=== PATIENT | female | born 1945 | race Caucasian/White ===

== ENCOUNTER 2021-04-03 10:26 | Outpatient (REF) | payer MEDICARE, SELFPAY ==
--- NOTE | ~2021-04-03 | MM_ITS ---
EXAMINATION: MM SCREENING DIGITAL BREAST TOMOSYNTHESIS, BILATERAL CLINICAL INFORMATION: Screening. Asymptomatic. The lifetime risk of breast cancer based on the Tyrer-Cuzick Model is 3%. COMPARISON: Mammography: 06/05/2019, 05/29/2018, 05/07/2017 TECHNIQUE: Digital breast tomosynthesis is performed in both the craniocaudal and mediolateral oblique views along with computer-aided detection (CAD). Synthesized 2D images are generated from the tomosynthesis. FINDINGS: The breasts are almost entirely fatty (ACR BI-RADS breast composition Category a). Background stromal and fibroglandular densities are similar to prior studies. There is no architectural abnormality. No abnormal calcifications. Skin contours are smooth. No significant changes. MM/MM tomosynthesis screening BI IMPRESSION: No mammographic evidence of malignancy. ASSESSMENT: BI-RADS 1: Negative RECOMMENDATION: Routine annual mammography screening. This patient's information was entered into a reminder system with a target due date for their next mammogram.
== END 2021-04-03 10:27 | disposition home or self-care (01) ==
LOC: HO.MAMMO 10:26
PROVIDERS: PCP Internal Medicine; Visit Provider Internal Medicine
DX: Z12.31 Encounter for screening mammogram for malignant neoplasm of breast (principal)
CPT/HCPCS: 77063; 77067

== ENCOUNTER 2021-06-02 09:12 | Outpatient (REF) | payer MEDICARE, SELFPAY ==
[2021-06-02 11:26] LABS: MANUAL DIFF FLAG NO
[2021-06-02 11:38] LABS: Basophils Absolute Auto 0.1 X10*3/uL (0.0-0.2); Basophils Percent Auto 0.7 % (0-2); Eosinophils Absolute Auto 0.2 X10*3/uL (0.0-0.4); Eosinophils Percent Auto 2.5 % (0-4); Hematocrit 40.1 % (37-47); Hemoglobin 13.3 g/dl (12.0-16.0); Imm Gran Abs Auto 0.02 X10*3/uL (0.00-0.03); Imm Gran Pct Auto 0.2 % (0.0-0.4); Lymphocytes Absolute Auto 2.8 X10*3/uL (1.2-4.9); Lymphocytes Percent Auto 30.9 % (20-40); Mean Corpuscular HGB Conc 33.2 g/dl (31.0-35.0); Mean Corpuscular Hemoglobin 28.9 pg (27.0-33.0); Mean Corpuscular Volume 87.2 fL (80-98); Mean Platelet Volume 9.8 fL (9.4-12.3); Monocytes Absolute Auto 0.5 X10*3/uL (0.1-1.2); Monocytes Percent Auto 5.3 % (2-11); Neutrophils Absolute Auto 5.4 X10*3/uL (2.0-8.3); Neutrophils Percent Auto 60.4 % (45-73); Platelet Count 343 X10*3/uL (160-400); Red Cell Distribution Width 11.9 % (11.0-16.0); White Blood Count 8.9 X10*3/uL (4.8-10.8)
[2021-06-02 11:47] LABS: Estimated Average Glucose 275 mg/dL; Hemoglobin A1c % 11.2 %
[2021-06-02 12:00] LABS: Creatinine Urine 153.39 mg/dL; Microalbum/Creatinine Ratio Ur 13.6 ug/mg cr
[2021-06-02 12:06] LABS: TSH reflex Free T4 0.84 uIU/mL (0.32-4.0)
[2021-06-02 12:07] LABS: Alanine Aminotransferase 15 U/L (0-31); Albumin Level 4.1 g/dL (3.5-5.0); Alkaline Phosphatase 90 U/L (39-117); Anion Gap 15 (12-20); Aspartate Amino Transferase 15 U/L (5-31); Bilirubin Total 0.5 mg/dL (0.0-1.0); Blood Urea Nitrogen 18 mg/dL (9-16); Calcium 9.3 mg/dL (8.4-10.2); Carbon Dioxide 23 mmol/L (22-29); Chloride 104 mmol/L (96-108); Cholesterol 199 mg/dL; Estimated Glomerular Filt Rate 56; Glucose Fasting 262 mg/dL (60-99); HDL Cholesterol 49 mg/dL; LDL Cholesterol Calculated 83 mg/dl; Potassium 4.6 mmol/L (3.3-5.1); Sodium 137 mmol/L (135-145); Total Protein 7.4 g/dL (6.5-8.0); Triglycerides 335 mg/dL
== END 2021-06-02 09:13 | disposition home or self-care (01) ==
LOC: HO.HMGCLDS 09:12
PROVIDERS: PCP Internal Medicine; Visit Provider Internal Medicine
DX: E11.9 Type 2 diabetes mellitus without complications (principal)
CPT/HCPCS: 36415; 80053; 80061; 82043; 83036; 84443; 85025

== ENCOUNTER → 2021-07-13 13:24 | Outpatient (BNVA) | payer MEDICARE, SELFPAY | PROVIDERS: PCP Internal Medicine; Visit Provider Dietitian, Registered | DX: E11.9 Type 2 diabetes mellitus without complications (principal) | CPT/HCPCS: 97802 ==

== ENCOUNTER → 2021-08-24 08:56 | Outpatient (BNVA) | payer MEDICARE, SELFPAY | PROVIDERS: PCP Internal Medicine; Visit Provider Dietitian, Registered | DX: E11.9 Type 2 diabetes mellitus without complications (principal) | CPT/HCPCS: 97803 ==

== ENCOUNTER 2021-08-30 07:22 | Outpatient (REF) | payer MEDICARE, SELFPAY ==
[2021-08-30 11:23] LABS: Hematocrit 38.5 % (37-47); Hemoglobin 12.4 g/dl (12.0-16.0); Mean Corpuscular HGB Conc 32.2 g/dl (31.0-35.0); Mean Corpuscular Hemoglobin 28.6 pg (27.0-33.0); Mean Corpuscular Volume 88.7 fL (80-98); Mean Platelet Volume 9.9 fL (9.4-12.3); Platelet Count 357 X10*3/uL (160-400); Red Blood Count 4.34 X10*6/uL (4.20-5.50); Red Cell Distribution Width 12.2 % (11.0-16.0); White Blood Count 7.1 X10*3/uL (4.8-10.8)
[2021-08-30 12:02] LABS: Alanine Aminotransferase 16 U/L (0-31); Alkaline Phosphatase 70 U/L (39-117); Anion Gap 12 (12-20); Aspartate Amino Transferase 16 U/L (5-31); Bilirubin Total 0.5 mg/dL (0.0-1.0); Blood Urea Nitrogen 21 mg/dL (9-16); Calcium 9.4 mg/dL (8.4-10.2); Carbon Dioxide 27 mmol/L (22-29); Chloride 109 mmol/L (96-108); Cholesterol 137 mg/dL; Estimated Glomerular Filt Rate > 60; Glucose Fasting 158 mg/dL (60-99); HDL Cholesterol 50 mg/dL; LDL Cholesterol Calculated 69 mg/dl; Sodium 143 mmol/L (135-145); Total Protein 6.8 g/dL (6.5-8.0); Triglycerides 94 mg/dL
[2021-08-30 12:05] LABS: Creatinine Urine 59.85 mg/dL
[2021-08-30 12:20] LABS: Estimated Average Glucose 157 mg/dL; Hemoglobin A1c % 7.1 %
== END 2021-08-30 07:23 | disposition home or self-care (01) ==
LOC: HO.HMGCLDS 07:22
PROVIDERS: PCP Internal Medicine; Visit Provider Internal Medicine
DX: E11.9 Type 2 diabetes mellitus without complications (principal); E78.5 Hyperlipidemia, unspecified; I10 Essential (primary) hypertension
CPT/HCPCS: 36415; 80053; 80061; 82043; 83036; 85027

== ENCOUNTER 2021-10-23 | Outpatient (REF) | payer MEDICARE, SELFPAY ==
[2021-10-24 12:43] LABS: CDiff Gene PCR NEGATIVE (Negative)
== END 2021-10-23 00:01 | disposition home or self-care (01) ==
LOC: HO.LNP
PROVIDERS: Visit Provider Internal Medicine Gastroenterology
DX: K51.90 Ulcerative colitis, unspecified, without complications (principal)
CPT/HCPCS: 87493

== ENCOUNTER 2021-10-23 13:49 | Outpatient (REF) | payer MEDICARE, SELFPAY ==
[2021-10-23 15:14] LABS: MANUAL DIFF FLAG NO
[2021-10-23 15:42] LABS: Basophils Absolute Auto 0.1 X10*3/uL (0.0-0.2); Basophils Percent Auto 0.6 % (0-2); Eosinophils Absolute Auto 0.2 X10*3/uL (0.0-0.4); Eosinophils Percent Auto 2.2 % (0-4); Hematocrit 40.1 % (37.0-47.0); Hemoglobin 12.9 g/dl (12.0-16.0); Imm Gran Abs Auto 0.03 X10*3/uL (0.00-0.03); Imm Gran Pct Auto 0.3 % (0.0-0.4); Lymphocytes Percent Auto 32.1 % (20-40); Mean Corpuscular HGB Conc 32.2 g/dl (31.0-35.0); Mean Corpuscular Hemoglobin 28.9 pg (27.0-33.0); Mean Corpuscular Volume 89.7 fL (80.0-98.0); Mean Platelet Volume 9.4 fL (9.4-12.3); Monocytes Absolute Auto 0.6 X10*3/uL (0.1-1.2); Monocytes Percent Auto 6.9 % (2-11); Neutrophils Absolute Auto 5.4 x10*3/uL (2.0-8.3); Neutrophils Percent Auto 57.9 % (45-73); Platelet Count 339 X10*3/uL (160-400); Red Blood Count 4.47 X10*6/uL (4.20-5.50); Red Cell Distribution Width 11.9 % (11.0-16.0); White Blood Count 9.3 X10*3/uL (4.8-10.8)
[2021-10-23 16:04] LABS: Blood Urea Nitrogen 25 mg/dL (9-16); C Reactive Protein 0.28 mg/dL (< or = 0.50); Estimated Glomerular Filt Rate 57
== END 2021-10-23 13:50 | disposition home or self-care (01) ==
LOC: HO.LAB 13:49
PROVIDERS: PCP Internal Medicine; Referring Provider Internal Medicine; Visit Provider Internal Medicine Gastroenterology
DX: K51.90 Ulcerative colitis, unspecified, without complications (principal)
CPT/HCPCS: 36415; 82565; 84520; 85025; 86140; 99212

== ENCOUNTER 2021-12-05 08:40 | Outpatient (REF) | payer MEDICARE, SELFPAY ==
[2021-12-05 12:06] LABS: Estimated Average Glucose 148 mg/dL; Hemoglobin A1c % 6.8 %
[2021-12-05 12:09] LABS: Alanine Aminotransferase 14 U/L (0-31); Albumin Level 4.1 g/dL (3.5-5.0); Alkaline Phosphatase 68 U/L (39-117); Anion Gap 11 (12-20); Aspartate Amino Transferase 14 U/L (5-31); Bilirubin Total 0.5 mg/dL (0.0-1.0); Blood Urea Nitrogen 20 mg/dL (9-16); Calcium 9.7 mg/dL (8.4-10.2); Carbon Dioxide 30 mmol/L (22-29); Chloride 104 mmol/L (96-108); Cholesterol 162 mg/dL; Creatinine Urine 79.13 mg/dL; Estimated Glomerular Filt Rate 60; Glucose Fasting 145 mg/dL (60-99); HDL Cholesterol 55 mg/dL; LDL Cholesterol Calculated 86 mg/dl; Microalbum/Creatinine Ratio Ur 7.5 ug/mg cr; Potassium 4.6 mmol/L (3.3-5.1); Sodium 140 mmol/L (135-145); Total Protein 7.3 g/dL (6.5-8.0); Triglycerides 106 mg/dL
== END 2021-12-05 08:41 | disposition home or self-care (01) ==
LOC: HO.HMGCLDS 08:40
PROVIDERS: PCP Internal Medicine; Visit Provider Internal Medicine
DX: I10 Essential (primary) hypertension (principal); E11.9 Type 2 diabetes mellitus without complications; E78.5 Hyperlipidemia, unspecified
CPT/HCPCS: 36415; 80053; 80061; 82043; 83036

== ENCOUNTER 2022-02-23 07:52 | Day surgery (SDC) | payer MEDICARE, SELFPAY ==
--- NOTE | 2022-02-21 15:05 | P.CONAN_ITS ---
Documented by User: Krista Massey NP 02/21/22 15:11 HPI - Anesthesia Eval Consult details Narrative: 76yo F for Colonoscopy PMFSH Active Problems Active Problems: All Active Problems (Updated 02/19/22 @ 10:47 by Tracy Ontiveros, RN) Paronychia of finger (Acute) Ulcerative colitis (Acute) Foot pain, right (Acute) Mammogram normal (Acute) HTN (hypertension) (Acute) Hyperlipidemia (Acute) DM type 2 (diabetes mellitus, type 2) (Acute) Past Medical History Medical History (Updated 02/19/22 @ 10:47 by Tracy Ontiveros, RN) Basal cell carcinoma DM type 2 (diabetes mellitus, type 2) Foot pain, right History of kidney stones History of ulcerative colitis HTN (hypertension) Hyperlipidemia Mammogram normal Surgical History Surgical History (Updated 02/19/22 @ 10:42 by Tracy Ontiveros, RN) Hx of colonoscopy Hx of hysterectomy Social History Social History Housing: House Patient Tobacco Use Status: Never used Tobacco e-Cigarette/Vaping Use: Never Used Second Hand Smoke Exposure: Yes Use of substances other than those prescribed or required for medical reasons: No Are you DNR?: No Advance Directives: No Advance Directives Information Provided: Yes Recently lost weight without trying: No How much weight loss: 2-13 pounds Nutrition Risks: No Nutritional Risk service: No Current occupational status: retired Current occupational exposures/hazards: No Meds Allergies Allergy/AdvReac Type Severity Reaction Status Date / Time amoxicillin [AMOXICILLIN] Allergy Intermediate RASH Verified 02/19/22 10:42 Home Medications Medication Instructions Recorded Confirmed Last Taken Type blood-glucose meter ([employer] #1 ea 07/04/21 12/08/21 Unknown History Ultra2 Meter) Lactobacillus cap PO 08/24/21 12/08/21 Unknown History acidophilus-Bifidobac.animalis 2.5 billion cell capsule (Daily Probiotic) cholecalciferol (vitamin D3) 25 25 mcg PO DAILY 08/24/21 02/19/22 Unknown History mcg (1,000 unit) capsule gabapentin 300 mg capsule 300 mg PO BEDTIME 08/24/21 02/19/22 Unknown History blood sugar diagnostic ([employer] 08/30/21 12/08/21 Unknown History Ultra Test) metformin 500 mg tablet,extended 1,000 mg PO DAILY tab 09/06/21 02/19/22 Unknown History release 24 hr fmvpbbzs-gqltgug-lmiy-lutein tablet tab PO 10/23/21 12/08/21 Unknown History Exam Exam Date and Time: February 21, 2022 1505 Pertinent Lab Results Pertinent Lab Results: Laboratory Tests 10/23/21 12/05/21 15:13 08:45 WBC 9.3 Hgb 12.9 Hct 40.1 Plt Count 339 Sodium 140 Potassium 4.6 Chloride 104 Carbon Dioxide 30 H BUN 20 H Creatinine 0.92 Assessment and Plan Assessment Anesthesia Assessment: Chart Reviewed Documented by User: Sloane Hamilton MD 02/23/22 09:37 [facility] Past Medical History Medical History (Updated 02/19/22 @ 10:47 by Tracy Ontiveros, RN) Basal cell carcinoma DM type 2 (diabetes mellitus, type 2) Foot pain, right History of kidney stones History of ulcerative colitis HTN (hypertension) Hyperlipidemia Mammogram normal Family History Family history of problems with anesthesia: No Surgical History Surgical History (Updated 02/19/22 @ 10:42 by Tracy Ontiveros, RN) Hx of colonoscopy Hx of hysterectomy History of Problems with Anesthesia: No Social History Social History Housing: House Patient Tobacco Use Status: Never used Tobacco e-Cigarette/Vaping Use: Never Used Second Hand Smoke Exposure: Yes Use of substances other than those prescribed or required for medical reasons: No Are you DNR?: No Advance Directives: No Advance Directives Information Provided: Yes Recently lost weight without trying: No How much weight loss: 2-13 pounds Nutrition Risks: No Nutritional Risk service: No Current occupational status: retired Current occupational exposures/hazards: No Meds Allergies Allergy/AdvReac Type Severity Reaction Status Date / Time amoxicillin [AMOXICILLIN] Allergy Intermediate RASH Verified 02/19/22 10:42 Home Medications Medication Instructions Recorded Confirmed Last Taken Type blood-glucose meter (OneTouch #1 ea 07/04/21 12/08/21 Unknown History Ultra2 Meter) Lactobacillus cap PO 08/24/21 12/08/21 Unknown History acidophilus-Bifidobac.animalis 2.5 billion cell capsule (Daily Probiotic) cholecalciferol (vitamin D3) 25 25 mcg PO DAILY 08/24/21 02/19/22 Unknown History mcg (1,000 unit) capsule gabapentin 300 mg capsule 300 mg PO BEDTIME 08/24/21 02/19/22 Unknown History blood sugar diagnostic (OneTouch 08/30/21 12/08/21 Unknown History Ultra Test) metformin 500 mg tablet,extended 1,000 mg PO DAILY tab 09/06/21 02/19/22 Unknown History release 24 hr qxdzbzhg-pglinfp-tsqf-lutein tablet tab PO 10/23/21 12/08/21 Unknown History Exam Airway Mallampati Class: II TM Dist: >3cm Neck ROM: Full Heart: rrr Lungs: cta Assessment and Plan Assessment Anesthesia Assessment: Anesthesia Plan Discussed and Chart Reviewed Final Anesthetic Review Family History of Problems with Anesthesia: No History of Problems with Anesthesia: No NPO: Yes ASA Class: III Final Preanesthetic Review: No Changes in Pt Med Stat, Meds/Allgs Chart Reviewed and Consent Obtained/Reviewed Patient Risk: Intermediate Procedure Risk: Intermediate Anesthetic Plan Anesthetic Plan: MAC: Disposition: Standard PACU
[2022-02-23 08:51] VITALS: BMI 27.4
[2022-02-23 09:02] VITALS: BP 137/53; PULSE 49; RESP 16; TEMP 37.1; O2SAT 97
[2022-02-23 09:09] LABS: Glucose, Whole Blood 140 mg/dL (60-115)
[2022-02-23] MEDS: Lactated Ringers 1,000 ML 100 ML IVCONT (09:10)
--- NOTE | 2022-02-23 09:38 | MHC.SHP ---
Pre-Procedural Eval Section A Date of Service: 02/23/22 The patient is an INPATIENT: No The History & Physical has been completed within 30 days and I have reviewed it.: No Section B Chief Complaint: Ulcerative colitis Details of Present Illness: Colon cancer screening, ulcerative colitis Relevant Family History (Specify if Yes): Yes Relevant Social History: None Present Medications: see Short Stay Collaborative assessment Medical History: Significant History (Basal cell carcinoma DM type 2 (diabetes mellitus, type 2) Foot pain, right HTN (hypertension) Hyperlipidemia Mammogram normal) History of Previous Operations: Relevant previous surgery/procedure and date(s) (History of colonoscopy, status post hysterectomy) Allergies: Allergies Allergy/AdvReac Type Severity Reaction Status Date / Time amoxicillin [AMOXICILLIN] Allergy Intermediate RASH Verified 02/19/22 10:42 Review of Systems Sugical H&P ROS: Negative: Constitution, Cardiovascular, Respiratory and Gastrointestinal Exam Surgical H&P Exam: Normal: Heart, Normal: Lungs, Normal: Extremities and Normal: Abdomen Plan Diagnosis/Plan: Unchanged I have reviewed the history and physical and performed a pertinent physical examination on my patient. No changes have occurred unless specified.
--- NOTE | 2022-02-23 09:39 | P.OP_ITS ---
Operative Note Operative Note Date of Service: 02/23/22 Narrative: Pre-op diagnosis: Follow-up of IBD Post-op diagnosis:?other (Colon polyps, diverticulosis, patchy colitis, hemorrhoids) Procedure: COLONOSCOPY TILL CECUM WITH BIOPSIES Consent: Indications for the procedure and potential complications of bleeding, perforation, reaction to medications and missed diagnosis were discussed with the patient and informed consent was obtained. Instrument: Olympus PCF H 190 L variable stiffness pediatric colonoscope Monitoring: Vital signs and clinical assessment, intermittent blood pressure monitoring, continuous EKG monitoring, Pulse oximetry and Carbon Dioxide monitoring were done throughout the procedure. Colon withdrawl time was 25 minutes. Procedure: The patient was placed in the left lateral decubitis position and pre-procedure medications were administered. After a digital rectal examination of the ano-rectum, the video colonoscope was inserted into the rectum and advanced through the colon to the cecum. The colonoscope was slowly withdrawn in a retrograde panoramic fashion and the colon mucosa was carefully examined including a retroflexed view of the rectum. Findings and interventions are described below. Procedure Difficulty: Without difficulty Findings: Terminal Ileum: Distal 5 cm was examined and appeared normal Cecum:? Normal - random biopsies were obtained Ascending Colon:? Normal - random biopsies were obtained Transverse Colon:? Normal - random biopsies were obtained Descending Colon:? Inactive colitis with multiple 5 mm to 1 cms pseudopolyps - biopsied. Sigmoid Colon:? Inactive colitis with multiple 5 mm to 1 cms pseudopolyps. Patchy moderately active colitis from 35 to 35 cms - biopsies obtained. Moderate diverticulosis Rectum:? Moderate proctitis with edema, erythema and scattered ulcers in the distal rectum from 0 to 4 cms. Ano-rectum:? Small internal hemorrhoids Colon preparation:? Good after some irrigation Impression and Post Procedure Diagnosis: Colonoscopy Findings: Two small polyps removed Inactive colitis with multiple 5 mm to 1 cms pseudopolyps. Patchy moderately active colitis from 35 to 35 cms - biopsies obtained. Surveillance biopsies obtained every 10 cm from the left colon. Moderate diverticulosis seen in the sigmoid colon Small hemorrhoids on retroflexed exam. Plan: Await pathology results. Resume mesalamine or start azathioprine on FU visit if biopsies confirm IBD. Patient has an appointment on 05/10/22 in the [facility] with Hannah Herrera M.D.. Repeat Colonoscopy interval based on path results - in 2-3 years if polyps are adenomatous and for IBD surveillance. Above findings were reviewed with the patient and colon polyps and diverticulosis handouts were given in the discharge area Surgeon: Hannah Herrera MD Anesthesia:?MAC (Dr Rodriguez) Was an Claims Correspondence Clerk used for this Procedure?:?Yes Claims Correspondence Clerk:?Heide Anderson Estimated blood loss (mL):?0 Pathology:?other (A. cecal bxs, R/O dysplasia? B. ascending colon bxs, R/O dysplasia? C. transverse colon bxs, R/O dysplasia? D. descending colon polyps (2)? E. colon bxs at 60 cm, R/O dysplasia? F.) Condition:?stable Disposition:?PACU
[2022-02-23 10:32] VITALS: BP 81/40; PULSE 55; RESP 16; TEMP 36.2; O2SAT 94
[2022-02-23 10:35] VITALS: BP 86/43; PULSE 55; RESP 16
[2022-02-23 10:44] VITALS: BP 104/48; PULSE 54; RESP 16; O2SAT 95
[2022-02-23 11:01] VITALS: BP 114/56; PULSE 50; RESP 16; TEMP 36.2; O2SAT 98
== END 2022-02-23 11:55 | disposition home or self-care (01) ==
PROVIDERS: PCP Internal Medicine; Visit Provider Internal Medicine Gastroenterology
PROC: 0DJD8ZZ Inspection of Lower Intestinal Tract, Via Natural or Artificial Opening Endoscopic (ICD-10-PCS; CPT 45378; principal; 2022-02-23 09:20)
DX: K51.20 Ulcerative (chronic) proctitis without complications (principal); K63.5 Polyp of colon; K57.30 Diverticulosis of large intestine without perforation or abscess without bleeding; K64.8 Other hemorrhoids; E11.9 Type 2 diabetes mellitus without complications; I10 Essential (primary) hypertension; E78.5 Hyperlipidemia, unspecified; Z79.84 Long term (current) use of oral hypoglycemic drugs; Z79.899 Other long term (current) drug therapy; Z88.0 Allergy status to penicillin
CPT/HCPCS: 45380; 82947; 88305

== ENCOUNTER 2022-02-28 08:53 | Outpatient (REF) | payer MEDICARE, SELFPAY ==
[2022-02-28 10:49] LABS: Alanine Aminotransferase 14 U/L (0-31); Albumin Level 4.1 g/dL (3.5-5.0); Alkaline Phosphatase 62 U/L (39-117); Anion Gap 11 (12-20); Aspartate Amino Transferase 15 U/L (5-31); Bilirubin Total 0.7 mg/dL (0.0-1.0); Blood Urea Nitrogen 20 mg/dL (9-16); Calcium 9.6 mg/dL (8.4-10.2); Carbon Dioxide 29 mmol/L (22-29); Chloride 105 mmol/L (96-108); Cholesterol 149 mg/dL; Estimated Glomerular Filt Rate > 60; Glucose Fasting 139 mg/dL (60-99); HDL Cholesterol 58 mg/dL; LDL Cholesterol Calculated 74 mg/dl; Potassium 4.5 mmol/L (3.3-5.1); Sodium 140 mmol/L (135-145); Total Protein 6.9 g/dL (6.5-8.0); Triglycerides 85 mg/dL
[2022-02-28 10:52] LABS: Estimated Average Glucose 148 mg/dL; Hemoglobin A1c % 6.8 %
[2022-02-28 11:13] LABS: Creatinine Urine 107.29 mg/dL; Microalbum/Creatinine Ratio Ur 6.5 ug/mg cr
== END 2022-02-28 08:54 | disposition home or self-care (01) ==
LOC: HO.LAB 08:53
PROVIDERS: PCP Internal Medicine; Visit Provider Internal Medicine
DX: I10 Essential (primary) hypertension (principal); E78.5 Hyperlipidemia, unspecified; E11.9 Type 2 diabetes mellitus without complications
CPT/HCPCS: 36415; 80053; 80061; 82043; 83036

== ENCOUNTER → 2022-03-15 07:56 | Outpatient (BNVA) | payer MEDICARE, SELFPAY | PROVIDERS: PCP Internal Medicine; Referring Provider Internal Medicine; Visit Provider Internal Medicine Gastroenterology | DX: K51.90 Ulcerative colitis, unspecified, without complications (principal) | CPT/HCPCS: 99212 ==

== ENCOUNTER 2022-04-04 10:31 | Outpatient (REF) | payer MEDICARE, SELFPAY ==
--- NOTE | ~2022-04-04 | MM_ITS ---
EXAMINATION: MM SCREENING DIGITAL BREAST TOMOSYNTHESIS, BILATERAL CLINICAL INFORMATION: Screening. Asymptomatic. The lifetime risk of breast cancer based on the Tyrer-Cuzick Model is 2%. COMPARISON: Mammography: 04/03/2021, 06/05/2019, 05/29/2018 TECHNIQUE: Digital breast tomosynthesis is performed in both the craniocaudal and mediolateral oblique views along with computer-aided detection (CAD). Synthesized 2D images are generated from the tomosynthesis. FINDINGS: The breasts are almost entirely fatty (ACR BI-RADS breast composition Category a). There are no significant masses, abnormal calcifications, or other abnormalities. Background stromal markings are stable. No developing density. No significant changes. MM/MM tomosynthesis screening BI IMPRESSION: No mammographic evidence of malignancy. ASSESSMENT: BI-RADS 1: Negative RECOMMENDATION: Routine annual mammography screening. This patient's information was entered into a reminder system with a target due date for their next mammogram.
== END 2022-04-04 10:32 | disposition home or self-care (01) ==
LOC: HO.MAMMO 10:31
PROVIDERS: Visit Provider Internal Medicine
DX: Z12.31 Encounter for screening mammogram for malignant neoplasm of breast (principal)
CPT/HCPCS: 77063; 77067

== ENCOUNTER 2022-05-30 07:42 | Outpatient (REF) | payer MEDICARE, SELFPAY ==
[2022-05-30 12:07] LABS: Estimated Average Glucose 140 mg/dL; Hemoglobin A1c % 6.5 %
[2022-05-30 12:17] LABS: Alanine Aminotransferase 13 U/L (0-31); Albumin Level 4.2 g/dL (3.5-5.0); Alkaline Phosphatase 78 U/L (39-117); Anion Gap 11 (12-20); Aspartate Amino Transferase 15 U/L (5-31); Bilirubin Total 0.6 mg/dL (0.0-1.0); Blood Urea Nitrogen 21 mg/dL (9-16); Calcium 8.9 mg/dL (8.4-10.2); Carbon Dioxide 27 mmol/L (22-29); Chloride 107 mmol/L (96-108); Estimated Glomerular Filt Rate > 60; Glucose Fasting 156 mg/dL (60-99); Potassium 4.2 mmol/L (3.3-5.1); Sodium 141 mmol/L (135-145); Total Protein 6.9 g/dL (6.5-8.0)
== END 2022-05-30 07:43 | disposition home or self-care (01) ==
LOC: HO.HMGCLDS 07:42
PROVIDERS: Visit Provider Internal Medicine
DX: E11.9 Type 2 diabetes mellitus without complications (principal); E78.5 Hyperlipidemia, unspecified; I10 Essential (primary) hypertension
CPT/HCPCS: 36415; 80053; 83036

== ENCOUNTER 2022-08-29 09:48 | Outpatient (REF) | payer MEDICARE, SELFPAY ==
[2022-08-29 11:13] LABS: MANUAL DIFF FLAG NO
[2022-08-29 11:19] LABS: Basophils Absolute Auto 0.1 X10*3/uL (0.0-0.2); Basophils Percent Auto 0.9 % (0-2); Eosinophils Absolute Auto 0.3 X10*3/uL (0.0-0.4); Eosinophils Percent Auto 4.4 % (0-4); Hematocrit 37.8 % (37.0-47.0); Hemoglobin 12.4 g/dl (12.0-16.0); Imm Gran Abs Auto 0.02 X10*3/uL (0.00-0.03); Imm Gran Pct Auto 0.3 % (0.0-0.4); Lymphocytes Absolute Auto 2.2 X10*3/uL (1.2-4.9); Lymphocytes Percent Auto 32.9 % (20-40); Mean Corpuscular HGB Conc 32.8 g/dl (31.0-35.0); Mean Corpuscular Hemoglobin 28.7 pg (27.0-33.0); Mean Corpuscular Volume 87.5 fL (80.0-98.0); Mean Platelet Volume 9.3 fL (9.4-12.3); Monocytes Absolute Auto 0.5 X10*3/uL (0.1-1.2); Monocytes Percent Auto 6.8 % (2-11); Neutrophils Absolute Auto 3.6 x10*3/uL (2.0-8.3); Neutrophils Percent Auto 54.7 % (45-73); Platelet Count 232 X10*3/uL (160-400); Red Blood Count 4.32 X10*6/uL (4.20-5.50); Red Cell Distribution Width 11.9 % (11.0-16.0); White Blood Count 6.6 X10*3/uL (4.8-10.8)
[2022-08-29 11:45] LABS: Alanine Aminotransferase 10 U/L (0-31); Albumin Level 4.1 g/dL (3.5-5.0); Alkaline Phosphatase 77 U/L (39-117); Aspartate Amino Transferase 13 U/L (5-31); Bilirubin Direct < 0.2 mg/dL (0.0-0.5); Bilirubin Total 0.2 mg/dL (0.0-1.0); Estimated Glomerular Filt Rate > 60; Total Protein 6.7 g/dL (6.5-8.0)
== END 2022-08-29 09:49 | disposition home or self-care (01) ==
LOC: HO.HMGCLDS 09:48
PROVIDERS: PCP Internal Medicine; Visit Provider Internal Medicine Gastroenterology
DX: K51.90 Ulcerative colitis, unspecified, without complications (principal)
CPT/HCPCS: 36415; 80076; 82565; 85025

== ENCOUNTER → 2022-09-04 14:00 | Outpatient (BNVA) | payer MEDICARE, SELFPAY | PROVIDERS: PCP Internal Medicine; Visit Provider Internal Medicine Gastroenterology | DX: K51.90 Ulcerative colitis, unspecified, without complications (principal) | CPT/HCPCS: 99212 ==

== ENCOUNTER 2022-10-17 08:02 | Outpatient (REF) | payer MEDICARE, SELFPAY ==
[2022-10-17 11:46] LABS: Estimated Average Glucose 143 mg/dL; Hemoglobin A1c % 6.6 %
[2022-10-17 11:52] LABS: Cholesterol 174 mg/dL; HDL Cholesterol 57 mg/dL; LDL Cholesterol Calculated 83 mg/dl; Triglycerides 173 mg/dL
[2022-10-17 12:07] LABS: Hemoglobin 12.9 g/dl (12.0-16.0); Mean Corpuscular HGB Conc 32.3 g/dl (31.0-35.0); Mean Corpuscular Hemoglobin 28.9 pg (27.0-33.0); Mean Corpuscular Volume 89.7 fL (80.0-98.0); Mean Platelet Volume 9.6 fL (9.4-12.3); Platelet Count 187 X10*3/uL (160-400); Red Blood Count 4.46 X10*6/uL (4.20-5.50); Red Cell Distribution Width 11.8 % (11.0-16.0); White Blood Count 6.3 X10*3/uL (4.8-10.8)
== END 2022-10-17 08:03 | disposition home or self-care (01) ==
LOC: HO.HMGCLDS 08:02
PROVIDERS: PCP Internal Medicine; Visit Provider Internal Medicine
DX: E11.9 Type 2 diabetes mellitus without complications (principal); I10 Essential (primary) hypertension; E78.5 Hyperlipidemia, unspecified
CPT/HCPCS: 36415; 80061; 83036; 85027

== ENCOUNTER 2023-02-19 08:29 | Outpatient (REF) | payer MEDICARE, SELFPAY ==
[2023-02-19 11:39] LABS: MANUAL DIFF FLAG NO
[2023-02-19 12:01] LABS: Basophils Absolute Auto 0.1 X10*3/uL (0.0-0.2); Basophils Percent Auto 0.8 % (0-2); Eosinophils Absolute Auto 0.4 X10*3/uL (0.0-0.4); Eosinophils Percent Auto 5.7 % (0-4); Hematocrit 40.8 % (37.0-47.0); Hemoglobin 13.2 g/dl (12.0-16.0); Imm Gran Abs Auto 0.02 X10*3/uL (0.00-0.03); Imm Gran Pct Auto 0.3 % (0.0-0.4); Lymphocytes Absolute Auto 2.2 X10*3/uL (1.2-4.9); Lymphocytes Percent Auto 33.3 % (20-40); Mean Corpuscular HGB Conc 32.4 g/dl (31.0-35.0); Mean Corpuscular Hemoglobin 28.7 pg (27.0-33.0); Mean Corpuscular Volume 88.7 fL (80.0-98.0); Mean Platelet Volume 9.7 fL (9.4-12.3); Monocytes Absolute Auto 0.5 X10*3/uL (0.1-1.2); Monocytes Percent Auto 8.2 % (2-11); Neutrophils Absolute Auto 3.3 x10*3/uL (2.0-8.3); Neutrophils Percent Auto 51.7 % (45-73); Platelet Count 245 X10*3/uL (160-400); Red Cell Distribution Width 12.2 % (11.0-16.0); White Blood Count 6.5 X10*3/uL (4.8-10.8)
[2023-02-19 12:19] LABS: Estimated Average Glucose 148 mg/dL; Hemoglobin A1c % 6.8 %
[2023-02-19 12:57] LABS: Alanine Aminotransferase 11 U/L (0-31); Albumin Level 4.1 g/dL (3.5-5.0); Alkaline Phosphatase 90 U/L (39-117); Anion Gap 12 (12-20); Aspartate Amino Transferase 13 U/L (5-31); Bilirubin Total 0.5 mg/dL (0.0-1.0); Blood Urea Nitrogen 28 mg/dL (9-16); Carbon Dioxide 27 mmol/L (22-29); Chloride 108 mmol/L (96-108); Cholesterol 181 mg/dL; Estimated Glomerular Filt Rate 45; Glucose Fasting 158 mg/dL (60-99); Glucose Random 157 mg/dL (60-115); HDL Cholesterol 58 mg/dL; LDL Cholesterol Calculated 98 mg/dl; Potassium 4.7 mmol/L (3.3-5.1); Sodium 142 mmol/L (135-145); Total Protein 6.5 g/dL (6.5-8.0); Triglycerides 125 mg/dL
[2023-02-19 13:16] LABS: TSH reflex Free T4 1.64 uIU/mL (0.32-4.0)
[2023-02-19 14:56] LABS: Creatinine Urine 120.55 mg/dL; Microalbum/Creatinine Ratio Ur 7.4 ug/mg cr
== END 2023-02-19 08:30 | disposition home or self-care (01) ==
LOC: HO.HMGCLDS 08:29
PROVIDERS: Visit Provider Internal Medicine
DX: E11.9 Type 2 diabetes mellitus without complications (principal); I10 Essential (primary) hypertension; K51.90 Ulcerative colitis, unspecified, without complications; E78.5 Hyperlipidemia, unspecified
CPT/HCPCS: 36415; 80053; 80061; 82043; 83036; 84443; 85025

== ENCOUNTER 2023-03-07 09:17 | Outpatient (REF) | payer MEDICARE, SELFPAY ==
[2023-03-07 10:17] LABS: MANUAL DIFF FLAG NO
[2023-03-07 10:39] LABS: Basophils Absolute Auto 0.1 X10*3/uL (0.0-0.2); Basophils Percent Auto 1.1 % (0-2); Eosinophils Absolute Auto 0.3 X10*3/uL (0.0-0.4); Eosinophils Percent Auto 5.1 % (0-4); Hematocrit 39.4 % (37.0-47.0); Hemoglobin 12.9 g/dl (12.0-16.0); Imm Gran Abs Auto 0.02 X10*3/uL (0.00-0.03); Imm Gran Pct Auto 0.3 % (0.0-0.4); Lymphocytes Absolute Auto 2.2 X10*3/uL (1.2-4.9); Lymphocytes Percent Auto 35.3 % (20-40); Mean Corpuscular HGB Conc 32.7 g/dl (31.0-35.0); Mean Corpuscular Hemoglobin 28.9 pg (27.0-33.0); Mean Corpuscular Volume 88.1 fL (80.0-98.0); Mean Platelet Volume 9.4 fL (9.4-12.3); Monocytes Absolute Auto 0.5 X10*3/uL (0.1-1.2); Monocytes Percent Auto 7.5 % (2-11); Neutrophils Absolute Auto 3.1 x10*3/uL (2.0-8.3); Neutrophils Percent Auto 50.7 % (45-73); Platelet Count 222 X10*3/uL (160-400); Red Blood Count 4.47 X10*6/uL (4.20-5.50); White Blood Count 6.1 X10*3/uL (4.8-10.8)
[2023-03-07 11:26] LABS: Anion Gap 13 (12-20); Blood Urea Nitrogen 18 mg/dL (9-16); Calcium 9.6 mg/dL (8.4-10.2); Carbon Dioxide 27 mmol/L (22-29); Chloride 106 mmol/L (96-108); Estimated Glomerular Filt Rate 54; Glucose Random 132 mg/dL (60-115); Potassium 4.5 mmol/L (3.3-5.1); Sodium 141 mmol/L (135-145)
[2023-03-07 11:57] LABS: Folate 13.1 ng/mL (> or = 4.0); Vitamin B12 624 pg/mL (200-900)
[2023-03-07 13:16] LABS: Appearance Urine Clear; Color Urine Dark Yellow; Glucose Urine UA Negative (Negative); Leukocyte Esterase Urine Moderate (2+) (Negative); Nitrite Urine Negative (Negative); Specific Gravity - Urine 1.025 (1.005-1.025); UMIC TRIGGER UACC YES; Urine Blood Negative (Negative); Urine Ketones Negative (Negative); Urine Protein Negative (Neg-Trace)
[2023-03-07 13:38] LABS: Bacteria Urine None Seen (None Seen); Hyaline Casts Urine 0-2 /LPF (0-2); RBC Urine 0-2 /HPF (0-2); WBC Urine 0-5 /HPF (0-5)
== END 2023-03-07 09:18 | disposition home or self-care (01) ==
LOC: HO.LAB 09:17
PROVIDERS: PCP Internal Medicine; Referring Provider Internal Medicine; Visit Provider Internal Medicine Gastroenterology
DX: K51.90 Ulcerative colitis, unspecified, without complications (principal); Z79.899 Other long term (current) drug therapy
CPT/HCPCS: 36415; 80048; 81001; 82607; 82746; 85025; 99212

== ENCOUNTER 2023-06-19 07:34 | Outpatient (REF) | payer MEDICARE, SELFPAY ==
[2023-06-19 11:16] LABS: MANUAL DIFF FLAG NO
[2023-06-19 11:17] LABS: Appearance Urine Turbid; Color Urine Dark Yellow; Glucose Urine UA Negative (Negative); Leukocyte Esterase Urine Trace (Negative); Nitrite Urine Negative (Negative); PH 5.5 (5.0-9.0); UMIC TRIGGER UACC YES; Urine Blood Negative (Negative); Urine Ketones Negative (Negative); Urine Protein Negative (Neg-Trace)
[2023-06-19 11:24] LABS: Bacteria Urine None Seen (None Seen); Hyaline Casts Urine 0-2 /LPF (0-2); RBC Urine 0-2 /HPF (0-2); Squamous Epithelial Cell Urine 0-2 /HPF (0-2); WBC Urine 0-5 /HPF (0-5)
[2023-06-19 11:40] LABS: Basophils Percent Auto 0.6 % (0-2); Eosinophils Absolute Auto 0.4 X10*3/uL (0.0-0.4); Eosinophils Percent Auto 6.5 % (0-4); Hematocrit 40.3 % (37.0-47.0); Hemoglobin 12.7 g/dl (12.0-16.0); Imm Gran Abs Auto 0.02 X10*3/uL (0.00-0.03); Imm Gran Pct Auto 0.3 % (0.0-0.4); Lymphocytes Absolute Auto 2.2 X10*3/uL (1.2-4.9); Lymphocytes Percent Auto 32.5 % (20-40); Mean Corpuscular HGB Conc 31.5 g/dl (31.0-35.0); Mean Corpuscular Hemoglobin 28.2 pg (27.0-33.0); Mean Corpuscular Volume 89.4 fL (80.0-98.0); Mean Platelet Volume 9.4 fL (9.4-12.3); Monocytes Absolute Auto 0.5 X10*3/uL (0.1-1.2); Neutrophils Absolute Auto 3.6 x10*3/uL (2.0-8.3); Neutrophils Percent Auto 53.1 % (45-73); Platelet Count 260 X10*3/uL (160-400); Red Blood Count 4.51 X10*6/uL (4.20-5.50); Red Cell Distribution Width 12.2 % (11.0-16.0); White Blood Count 6.8 X10*3/uL (4.8-10.8)
[2023-06-19 11:42] LABS: Estimated Average Glucose 148 mg/dL; Hemoglobin A1c % 6.8 %
[2023-06-19 11:53] LABS: Alanine Aminotransferase 10 U/L (0-31); Albumin Level 4.1 g/dL (3.5-5.0); Alkaline Phosphatase 70 U/L (39-117); Anion Gap 13 (12-20); Aspartate Amino Transferase 13 U/L (5-31); Bilirubin Total 0.5 mg/dL (0.0-1.0); Blood Urea Nitrogen 17 mg/dL (9-16); Calcium 9.2 mg/dL (8.4-10.2); Carbon Dioxide 25 mmol/L (22-29); Chloride 108 mmol/L (96-108); Cholesterol 172 mg/dL; Estimated Glomerular Filt Rate 59; Glucose Fasting 150 mg/dL (60-99); HDL Cholesterol 54 mg/dL; LDL Cholesterol Calculated 84 mg/dl; Potassium 3.9 mmol/L (3.3-5.1); Sodium 142 mmol/L (135-145); Total Protein 6.9 g/dL (6.5-8.0); Triglycerides 170 mg/dL
== END 2023-06-19 07:35 | disposition home or self-care (01) ==
LOC: HO.HMGCLDS 07:34
PROVIDERS: PCP Internal Medicine; Visit Provider Internal Medicine
DX: I10 Essential (primary) hypertension (principal); E11.9 Type 2 diabetes mellitus without complications; E78.5 Hyperlipidemia, unspecified
CPT/HCPCS: 36415; 80053; 80061; 81001; 83036; 85025

== ENCOUNTER 2023-06-25 08:37 | Outpatient (AMB) | payer MEDICARE, SELFPAY ==
--- NOTE | 2023-06-25 08:57 | A.OFFPC_ITS ---
Vital Signs 06/25/23 09:10 Height 5 ft 1 in Weight 161 lb BMI 30.4 BP 116/70 Blood Pressure Location Lt brachial Position Sitting Pulse 60 Pulse Source Pulse Oximeter Pulse Oximetry (%) 95 Oxygen Delivery Method Room Air Intake Visit Reasons: 4 Month follow up DM Allergies amoxicillin [AMOXICILLIN] Allergy (Intermediate, Verified 06/25/23 09:11) RASH Medication List - Last Reconciled 06/25/23 by Catalina Saldivar MD atenolol 25 mg PO DAILY atorvastatin 20 mg PO DAILY blood sugar diagnostic ([employer] Ultra Test strips) As directed blood-glucose meter ([employer] Ultra2 Meter) As directed blood-glucose meter (OneTouch Ultra2 Meter kit) As directed cholestyramine (with sugar) 4 gram 4 grams PO DAILY PRN 30 days Jardiance (empagliflozin) 10 mg PO DAILY NS lancets ([employer] Delica Plus Lancet) Test daily lancing device with lancets ([employer] Delica Lancing Device kit) test one a day lisinopril 5 mg PO DAILY metformin ER 1,000 mg (2 x 500 mg) PO DAILY zoitxvak-qghessk-ikck-lutein tabs PO sulfasalazine 0.5 grams PO BID 60 days Tobacco use date assessed: 02/25/23 HPI 4 Month follow up DM HPI Details Pt presents for DM 2, hyperlipid, HTN, stable on meds. PATIENT COMPLAINS OF DIARRHEA FROM TAKING 1000 MG OF METFORMIN. [facility] Medical History Basal cell carcinoma DM type 2 (diabetes mellitus, type 2) Foot pain, right History of kidney stones History of ulcerative colitis HTN (hypertension) Hyperlipidemia Mammogram normal Surgical History Hx of colonoscopy Hx of hysterectomy Family History Father Hypertension Heart disease Colon cancer Mother Hypertension Diabetes Heart disease Other Substance use disorder Social History Housing: House Patient Tobacco Use Status: Never used Tobacco e-Cigarette/Vaping Use: Never Used Second Hand Smoke Exposure: Yes service: No Current occupational status: retired Current occupational exposures/hazards: No Cognitive needs: No Hearing needs: No Vision needs: No Questionnaire Thrive Questionnaire Date Thrive assessed: 02/25/23 JORDY-7 AMB Questionnaire JORDY-7 Date JORDY - 7 assessed: 02/25/23 Source: Developed by Drs. Bernard Damon, Debra Gunn, Nicholas Garcia and colleagues, with an educational ivory from [employer]. Review of Systems Const All systems reviewed & are unremarkable except as noted in HPI and below Reports no additional complaints Eyes Reports no additional complaints ENT Reports no additional complaints Card Reports no additional complaints Resp Reports no additional complaints GI Reports no additional complaints Reports no additional complaints Musc Reports no additional complaints Physical exam (Primary Care) Vital Signs: Last Vital Signs Pulse 60 06/25/23 09:10 BP 116/70 06/25/23 09:10 Pulse Ox 95 06/25/23 09:10 Oxygen Delivery Method Room Air 06/25/23 09:10 BMI result Body Mass Index 30.4 Tobacco/Smoking Status: Tobacco use Status Tobacco use date assessed 02/25/23 06/25/23 08:58 Patient Tobacco Use Status Never used Tobacco 06/25/23 08:58 e-Cigarette/Vaping Use Never Used 06/25/23 08:58 Thrive Assessment: Date of Thrive Assessment Date Thrive assessed 02/25/23 06/25/23 08:58 Const General: no acute distress HENMT Head: Yes normal to inspection Ears: hearing grossly normal bilaterally Mouth: Normal oral and palatal mucosa present Throat: Yes posterior oropharynx normal Eyes General: appearance normal, both eyes and all related structures Neck Neck: Yes no lymphadenopathy and Yes supple Resp Effort & Inspection: normal respiratory effort Auscultation: clear to auscultation bilaterally Cardio Rhythm: regular rhythm Heart sounds: S1 normal heart sound present and S2 normal heart sound present GI Inspection: Yes normal to inspection Palpation (GI): Soft to palpation Percussion: Yes normal to percussion Auscultation: normal bowel sounds Assessment and Plan Assessment & Plan (1) HTN (hypertension): Code(s): I10 - Essential (primary) hypertension Plan: cont meds (2) Hyperlipidemia: Code(s): E78.5 - Hyperlipidemia, unspecified Plan: cont statin (3) DM type 2 (diabetes mellitus, type 2): Comment: diarrhea from 1000 mg Code(s): E11.9 - Type 2 diabetes mellitus without complications Plan: A1C is 6.8, ADA diet regular physical activity discussed with the patient. Jardiance 10 mg daily will be started and patient will decrease metformin to 500 mg a day. Follow-up in 3 months with a fasting labs before Medications: New Jardiance (empagliflozin) 10 mg PO DAILY 90 tabs 1RF NS Coding Level of Care Code Est Pt Level 4 (45088) Diagnoses HTN (hypertension) I10 Hyperlipidemia E78.5 DM type 2 (diabetes mellitus, type 2) E11.9
[2023-06-25 09:10] VITALS: BP 116/70; PULSE 60; O2SAT 95; BMI 30.4
== END 2023-06-25 09:40 | disposition home or self-care (01) ==
PROVIDERS: Visit Provider Internal Medicine
DX: I10 Essential (primary) hypertension (principal); E78.5 Hyperlipidemia, unspecified; E11.9 Type 2 diabetes mellitus without complications
CPT/HCPCS: 99214

== ENCOUNTER 2023-09-05 08:43 | Outpatient (AMB) | payer MEDICARE, SELFPAY ==
[2023-09-05 09:03] VITALS: BP 122/72; PULSE 74; BMI 29.8
--- NOTE | 2023-09-05 09:03 | MHC.OFFVIS ---
Intake Vital Signs 09/05/23 09:03 Height 5 ft 2 in Weight 163 lb BMI 29.8 BP 122/72 Blood Pressure Location Lt brachial Position Sitting Pulse 74 Intake Visit Reasons: 6 month fu Intake Note: Patient follow up for Ulcerative Colitis. Patient denies any GI issues for today. [employer] Consultant Required: No Accompanied by: Self / Same As Patient Allergies amoxicillin [AMOXICILLIN] Allergy (Intermediate, Verified 06/25/23 09:11) RASH HPI 6 month fu HPI Details GI clinic visit for this 77 year old female for follow-up of ulcerative colitis. Patient has been followed in GI by Dr. Shaffer since 2011.? [facility] CRP normal at 0.38 (elevated CRP of 0.64 in the past) 2012 IBD serologies:? Pattern consistent with ulcerative colitis. Normal Zinc and Vitamin D levels in the past. ENDOSCOPIC STUDIES: 02/2022 COLONOSCOPY SHOWED: Two small polyps removed Inactive colitis with multiple 5 mm to 1 cms pseudopolyps. Patchy moderately active colitis from 35 to 35 cms - biopsies obtained. Surveillance biopsies obtained every 10 cm from the left colon. Moderate diverticulosis seen in the sigmoid colon Small hemorrhoids on retroflexed exam. Plan:? Start mesalamine on FU visit if biopsies confirm IBD. Repeat Colonoscopy interval based on path results - in 2-3 years if polyps are adenomatous and for IBD surveillance. BIOPSIES SHOWED: D.? Colon, descending, polypectomies (2):? Hyperplastic mucosal polyps. E.? Colon, 60 cm, biopsy:? Colonic mucosa within normal limits. F. ? Colon, 50 cm, biopsy:? Chronic, mildly active, colitis. G.? Colon, 30 and 40 cm, biopsy:? Colonic mucosa within normal limits. H.? Colon, 10 and 20 cm, biopsy:? Colonic mucosa within normal limits. I.? Rectum, 2 cm, biopsy:? Chronic, mildly active, proctitis. COMMENT:? No dysplasia or granulomata are seen. IBD SUMMARY YEAR OF DIAGNOSIS:? 2006 DISEASE EXTENT: Pancolitis - worse in rectosigmoid area LAST COLONOSCOPY FINDINGS: 03/2013 NEXT COLON DUE:? EXTRAINTESTINAL MANIFESTATIONS:? None GI SURGERY:? None PAST TREATMENTS: Flory Took steroids after her last big flare in 2017 CURRENT THERAPY: Discontinued Lialda a few yrs ago due to cost and has not been having symptoms Sulfasalazine 500 mg twicedaily VACCINATIONS: Flu shot:? Yearly - 2020 Hep A/B serology /vaccination TB screen: ? 2013 Negative TODAY'S VISIT: Has 3-4 loose nonbloody BMs a day Attributes diarrhea to taking metformin for diabetes. Taking sulfasalazine twice a day - unable to increase due to side effects of nausea PAST VISITS: Always has loose BMs all the time - has learnt to cope with it. Can have 3-4 loose Bms a day - sometimes more Can have a BM when she sits down to pee. Denies accidents or incontinence- can have near misses Notes nausea with sulfasalazine undergoing XRT for prostate cancer for 7 to 8 weeks Can have bouts of urgency -? 2-3 times a week associated with watery BMs.. Episodes of urgency are not related to food - notes urgency even if she does not eat. Taking sulfasalazine 500 mg twice daily - unable to tolerate 1 gram twice daily due to nausea. Has 3-4 BMs a day depending on her diet. Stopped drinking lucia water and probiotics. Diagnosed with DM in May and noted explosive watery diarrhea after starting Metformin. Continuing to take the Metformin since other medications are more expensive. Has 4 to 6 BMs per day without blood or mucous. Patient denies symptoms of heartburn, dysphagia, nausea, vomiting, or weight.? Unable to go out and afraid to eat due to diarrhea Patient denies major cardiac or pulmonary problems, loud snoring or sleep apnea Denies problems with anesthesia in the past. Denies being on chronic anticoagulation. Patient denies known family history of IBD, colon polyps,? or other GI malignancies. Dad had colon cancer in his late 60's. 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 , lives with her and has 3 children. PAST GI HISTORY BY REVIEW OF MEDICAL RECORDS: 02/[address] Shaffer: The patient is a 73 year old female with a PMHx of UC and IBD who presents? today for a follow up. She reports a GI bug 6 weeks ago, with vomiting and? diarrhea. Her symptoms had resolved within a week, and she has not had any? diarrhea or vomiting since that time. She has not used Lialda in 1 year due to? how much it costs. She has not had any symptoms despite being off the? medication. She has looked into generic Lialda, which is more reasonable for her? budget. She says she uses turmeric and drinks water with lucia root, and takes? a probiotic. She denies any recent flare ups. 1. Ulcerative colitis, left sided, with rectal bleeding - K51.511, Has not? had bleeding for >1 year. 2. Colon cancer screening - Z12.11, Father had colon? cancer. Pt reports doing well. She experienced a GI bug 6 weeks ago, but her? symptoms resolved and did not seem to affect her UC. She is in remission. She? mentioned that her cousin is using generic Lialda(Miguel A), and that it is more in? her philippe range. She has not used Lialda in 1 year and has not had any recurrent? symptoms. The last time she used Lialda was in 2016 after an E. coli infection? with post infectious diarrhea with a ? flare of her IBD. Blood work on? 03/06/19 showed no evidence of anemia. WBCs WNL. Labs from 1 month ago showed CRP? WNL and has been since 2017 Pt is due for a repeat colonoscopy to evaluate? her IBD. She also has a family history of colon cancer in her father.? Colonoscopy in 2001 did not show any polyps. Repeat on 02/02/09 showed active? colitis in the R, L and most active in rectosigmoid colon. No tubular adenoma.? [place] in 2012 showed mucosal?remission PFSH Medical History Basal cell carcinoma DM type 2 (diabetes mellitus, type 2) Foot pain, right History of kidney stones History of ulcerative colitis HTN (hypertension) Hyperlipidemia Mammogram normal Surgical History Hx of hysterectomy Hx of colonoscopy Family History Father Hypertension Heart disease Colon cancer Mother Hypertension Diabetes Heart disease Other Substance use disorder Social History Housing: House Patient Tobacco Use Status: Never used Tobacco e-Cigarette/Vaping Use: Never Used Second Hand Smoke Exposure: Yes service: No Current occupational status: retired Current occupational exposures/hazards: No Cognitive needs: No Hearing needs: No Vision needs: No Review of Systems Const All systems reviewed & are unremarkable except as noted in HPI and below Physical Exam Vital Signs: Last Vital Signs Pulse 74 09/05/23 09:03 BP 122/72 09/05/23 09:03 BMI result Body Mass Index 29.8 Const General: healthy appearing and no acute distress Nutritional Appearance: overweight Orientation/consciousness: patient oriented x3 Limitations: no limitations HEENT Head: Yes normal to inspection Ears: hearing grossly normal bilaterally Eyes Sclerae: sclerae normal Pupils: Equal, round and reactive pupils present Neck Neck: Yes normal visual inspection Chest Chest palpation & inspection: normal inspection of the chest Resp Effort & Inspection: normal respiratory effort Auscultation: clear to auscultation bilaterally Cardio Palpation: normal PMI Rate: regular rate Rhythm: regular rhythm Heart sounds: S1 normal heart sound present, S2 normal heart sound present and no murmurs GI Palpation (GI): Soft to palpation, nontender and No hepatosplenomegaly present Auscultation: normal bowel sounds Rectal Exam - Female: deferred Skin General skin exam: no rashes or lesions noted Neuro General: patient oriented x3, gait normal and moves all extremities Cranial nerves: Yes Equal, round and reactive pupils present Psych Appearance: grossly normal Mental Status: mental status grossly normal Assessment & Plan Assessment & Plan (1) Ulcerative colitis: Comment: 02/2022 Colonoscopy showed inactive colitis with multiple 5 mm to 1 cms pseudopolyps. Patchy moderately active colitis from 25 to 35 cms - biopsies obtained. Surveillance biopsies obtained every 10 cm from the left colon. Pt was advised to start sulfasalazine 1 gram three times daily. Repeat colonoscopy in 3 yrs (due 02/2025) Code(s): K51.90 - Ulcerative colitis, unspecified, without complications Plan 77 YF diagnosed with ulcerative Gordon-colitis (worse in rectosigmoid area) treated with Lialda in the past. She discontinued Lialda a few yrs ago due to cost and has not been having symptoms Pt was diagnosed with DM in May, and noted explosive watery diarrhea after starting Metformin. Pt admits to taking antibiotics prior to onset of diarrhea. She is continuing to take the Metformin since other medications are more expensive. Patient was advised to have a stool test for C diff colitis - negative She was advised a trial of a fiber supplement for diarrhea. 02/2022 Colonoscopy showed?inactive colitis with multiple 5 mm to 1 cms pseudopolyps. Patchy moderately active colitis from 25 to 35 cms - biopsies obtained. Surveillance biopsies obtained every 10 cm from the left colon. Pt was advised to start sulfasalazine 500 mg twice daily for a week and then increase to 1 gram twice daily. Repeat colonoscopy in 3 yrs (due 02/2025) 03/07/23 - pt was advised to increase sulfasalazine to 500 mg 3 times daily since she is continuing to have 3-4 loose stools a day sometimes with urgency 09/05/23 Pt unable to increase sulfasalazine to three times a day due to nausea Advised to check fecal calprotectin FU in 6 months Orders: Orders Calprotectin, Fecal Today K51.90 - Ulcerative colitis, unspecified, without complications Coding Level of Care Code Est Pt Level 4 (01813) Diagnoses Ulcerative colitis K51.90 Time Spent (min) 19
== END 2023-09-05 09:28 | disposition home or self-care (01) ==
PROVIDERS: Visit Provider Internal Medicine Gastroenterology
DX: K51.90 Ulcerative colitis, unspecified, without complications (principal)
CPT/HCPCS: 99214

== ENCOUNTER → 2023-09-05 08:43 | Outpatient (BNVA) | payer MEDICARE, SELFPAY | PROVIDERS: Visit Provider Internal Medicine Gastroenterology | DX: K51.90 Ulcerative colitis, unspecified, without complications (principal) | CPT/HCPCS: 99212 ==

== ENCOUNTER 2023-09-12 08:55 | Outpatient (REF) | payer MEDICARE, SELFPAY ==
[2023-09-19 22:23] LABS: Calprotectin, Fecal 17 mcg/g
== END 2023-09-12 08:56 | disposition home or self-care (01) ==
LOC: HO.HMGCLNP 08:55
PROVIDERS: Internal Medicine Gastroenterology; PCP Internal Medicine; Visit Provider Internal Medicine
DX: K51.90 Ulcerative colitis, unspecified, without complications (principal)
CPT/HCPCS: 83993

== ENCOUNTER 2023-10-07 08:12 | Outpatient (REF) | payer MEDICARE, SELFPAY ==
[2023-10-07 11:16] LABS: MANUAL DIFF FLAG NO
[2023-10-07 11:34] LABS: Basophils Absolute Auto 0.1 X10*3/uL (0.0-0.2); Basophils Percent Auto 0.8 % (0-2); Eosinophils Absolute Auto 0.4 X10*3/uL (0.0-0.4); Eosinophils Percent Auto 6.3 % (0-4); Hemoglobin 13.1 g/dl (12.0-16.0); Imm Gran Abs Auto 0.02 X10*3/uL (0.00-0.03); Imm Gran Pct Auto 0.3 % (0.0-0.4); Lymphocytes Absolute Auto 2.1 X10*3/uL (1.2-4.9); Lymphocytes Percent Auto 32.2 % (20-40); Mean Corpuscular HGB Conc 32.8 g/dl (31.0-35.0); Mean Corpuscular Hemoglobin 29.2 pg (27.0-33.0); Mean Corpuscular Volume 89.1 fL (80.0-98.0); Mean Platelet Volume 9.8 fL (9.4-12.3); Monocytes Absolute Auto 0.4 X10*3/uL (0.1-1.2); Monocytes Percent Auto 6.8 % (2-11); Neutrophils Absolute Auto 3.4 x10*3/uL (2.0-8.3); Neutrophils Percent Auto 53.6 % (45-73); Platelet Count 213 X10*3/uL (160-400); Red Blood Count 4.49 X10*6/uL (4.20-5.50); Red Cell Distribution Width 11.9 % (11.0-16.0); White Blood Count 6.4 X10*3/uL (4.8-10.8)
[2023-10-07 11:35] LABS: Estimated Average Glucose 157 mg/dL; Hemoglobin A1c % 7.1 % (<6.0)
[2023-10-07 11:45] LABS: Alanine Aminotransferase 10 U/L (0-31); Albumin Level 4.1 g/dL (3.5-5.0); Alkaline Phosphatase 74 U/L (39-117); Anion Gap 12 (12-20); Aspartate Amino Transferase 14 U/L (5-31); Bilirubin Total 0.5 mg/dL (0.0-1.0); Blood Urea Nitrogen 15 mg/dL (9-16); Calcium 9.1 mg/dL (8.4-10.2); Carbon Dioxide 26 mmol/L (22-29); Chloride 104 mmol/L (96-108); Cholesterol 184 mg/dL (<200); Estimated Glomerular Filt Rate > 60; Glucose Fasting 157 mg/dL (60-99); HDL Cholesterol 51 mg/dL (>40); LDL Cholesterol Calculated 90 mg/dL (<100); Potassium 3.9 mmol/L (3.3-5.1); Sodium 138 mmol/L (135-145); Triglycerides 215 mg/dL (<150)
[2023-10-07 12:03] LABS: Creatinine Urine 160.61 mg/dL; Microalbum/Creatinine Ratio Ur 12.4 ug/mg cr (<30)
== END 2023-10-07 08:13 | disposition home or self-care (01) ==
LOC: HO.HMGCLDS 08:12
PROVIDERS: PCP Internal Medicine; Visit Provider Internal Medicine
DX: I10 Essential (primary) hypertension (principal); E78.5 Hyperlipidemia, unspecified; E11.9 Type 2 diabetes mellitus without complications
CPT/HCPCS: 36415; 80053; 80061; 82043; 82570; 83036; 85025

== ENCOUNTER 2023-10-10 09:16 | Outpatient (AMB) | payer MEDICARE, SELFPAY ==
--- NOTE | 2023-10-10 09:19 | AM.OFFVISMDC ---
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 Required: No Allergies amoxicillin [AMOXICILLIN] Allergy (Intermediate, Verified 10/10/23 09:27) RASH Medication List - Last Reconciled 10/10/23 by Catalina Saldivar MD atenolol 25 mg PO DAILY atorvastatin 20 mg PO DAILY blood sugar diagnostic ([employer] Ultra Test strips) test glucose once a day blood-glucose meter ([employer] Ultra2 Meter) As directed blood-glucose meter (OneTouch Ultra2 Meter kit) As directed lancets ([employer] Delica Plus Lancet) Test daily lancing device with lancets ([employer] Delica Lancing Device kit) test one a day lisinopril 5 mg PO DAILY metformin ER 1,000 mg (2 x 500 mg) PO DAILY hfkwxwgg-xoifuci-kfen-lutein tabs PO sulfasalazine 0.5 grams PO BID 60 days HPI [facility] G0439 HPI Details Pt presents for annual, Initiated the conversation about Advanced Directives. Advanced Directives help? patients prepare for current and future decisions about their medical treatment? and place of care. Discussed with patient that it is a process where a patients? current condition and prognosis are reviewed, their wishes for information? regarding their illness are elicited, and likely medical dilemmas are presented? and options discussed. The form can be amended as needed, reviewed yearly and? make changes as needed IPPE/AWV ? year old presents? for her ? Annual? Wellness Visit, initial visit.? Medical / Social History Reviewed? Past Medical History ?Yes? . ? [place]? of Care / Care Team list updated ?Yes . ? Surgical/Hospitalization? History ?Yes . ? Current Medications? (including OTC and supplements) ?Yes . ? Family History ?Yes? . ? Tobacco? Control form ?Yes . ? AUDIT-C (Alcohol use) form? ?Yes . ? Illicit drug use in Social? History ?Yes . ? Current diagnosis of? depression? ?No ? Appropriate PHQ2/PHQ9? completed ?Yes . ? Data entered by ?Medical? Acute Care Certified Nursing Assistant and reviewed by provider ? Fall Risk ? Fall? History? Have you had any falls with? injury in the past year? ?No . ? Have you had two or more? falls in the past year? ?No . ? Fall Risk Assessment: ?No? falls in the past year . ? HRA filled out by? the patient, reviewed by Provider and scanned. ? IPPE/AWV ? Balance? [place]? ?Yes . ? Tandem? walk ?Yes . ? Walk and? Turn ?Yes . ? Rise from? sit to stand ?Yes . ?Vision? Corrective? lens ?Yes ? Vision? screen ? Up-to-date, has an appointment [] for vision? screening and glaucoma screening ?Hearing? Whisper? test ?pass .? Initiated the conversation about Advanced Directives. Advanced Directives help? patients prepare for current and future decisions about their medical treatment? and place of care. Discussed with patient that it is a process where a patients? current condition and prognosis are reviewed, their wishes for information? regarding their illness are elicited, and likely medical dilemmas are presented? and options discussed. The form can be amended as needed, reviewed yearly and? make changes as needed Written? Plan?Completed. See Patient? Documents. [facility] Medical History Basal cell carcinoma DM type 2 (diabetes mellitus, type 2) Foot pain, right History of kidney stones History of ulcerative colitis HTN (hypertension) Hyperlipidemia Mammogram normal Surgical History Hx of hysterectomy Hx of colonoscopy Family History Father Hypertension Heart disease Colon cancer Mother Hypertension Diabetes Heart disease Other Substance use disorder Social History Housing: House Patient Tobacco Use Status: Never used Tobacco e-Cigarette/Vaping Use: Never Used Second Hand Smoke Exposure: Yes service: No Current occupational status: retired Current occupational exposures/hazards: No Cognitive needs: No Hearing needs: No Vision needs: No Questionnaire Medicare Wellness Checkup [age] What gender do you identify with?: female During the past 4 weeks, how much have you been bothered by emotional problems such as feeling anxious, depressed, irritable, sad or downhearted, and blue?: not at all During the past 4 weeks, has your physical & emotional health limited your social activities with family, friends, neighbors, or groups?: not at all During the past 4 weeks, how much bodily pain have you generally had?: no pain During the past 4 weeks, was someone available to help you if you needed & wanted help?: yes, as much as I wanted During the past 4 weeks, what was the hardest physical activity you could do for at least 2 minutes?: heavy Can you get to places out of walking distance without help? (For eg., can you travel alone on buses, taxis or drive your car?): Yes Can you go shopping for groceries or clothes without someone's help?: Yes Can you prepare your own meals?: Yes Can you do your housework without help?: Yes Because of any health problems, do you need the help of another person with your personal care needs such as eating, bathing, dressing or getting around the house?: No Can you handle your own money without help?: Yes During the past 4 weeks, how would you rate your health in general?: very good PHQ-9 Over the last 2 weeks, how often have you been bothered by any of the following problems? 1. Little interest or pleasure in doing things: not at all 2. Feeling down, depressed, or hopeless: nearly every day 3. Trouble falling or staying asleep, or sleeping too much: not at all 4. Feeling tired or having little energy: not at all 5. Poor appetite or overeating: several days 6. Feeling bad about yourself - or that you are a failure or have let yourself or your family down: not at all 7. Trouble concentrating on things, such as reading the newspaper or watching television: not at all 8. Moving or speaking so slowly that other people could have noticed. Or the opposite - being so fidgety or restless that you have been moving around a lot more than usual: not at all 9. Thoughts that you would be better off or of hurting yourself in some way: not at all Total score: 4 Depression Screening Interpretation: Negative Depression Screening Done: Yes 65025 - PHQ-9 Billing: Yes Source: Developed by Drs. Bernard Damon, Debra Gunn, Nicholas Garcia and colleagues, with an educational ivory from [employer]. Review of Systems Const All systems reviewed & are unremarkable except as noted in HPI and below Reports no additional complaints Eyes Reports no additional complaints ENT Reports no additional complaints Card Reports no additional complaints Resp Reports no additional complaints GI Reports no additional complaints Reports no additional complaints Musc Reports no additional complaints Physical Exam Vital Signs: Last Vital Signs Pulse 67 10/10/23 09:26 BP 112/76 10/10/23 09:26 Pulse Ox 98 10/10/23 09:26 Oxygen Delivery Method Room Air 10/10/23 09:26 BMI result Body Mass Index 30.0 Const General: no acute distress HEENT Head: Yes normal to inspection Ears: hearing grossly normal bilaterally Neck Neck: Yes no lymphadenopathy and Yes supple Resp Effort & Inspection: normal respiratory effort Auscultation: clear to auscultation bilaterally Cardio Rhythm: regular rhythm Heart sounds: S1 normal heart sound present and S2 normal heart sound present GI Inspection: Yes normal to inspection Palpation (GI): Soft to palpation Percussion: Yes normal to percussion Auscultation: normal bowel sounds Extrem General: Yes no clubbing, cyanosis or edema Assessment & Plan Assessment & Plan (1) Ulcerative colitis: Comment: 02/2022 Colonoscopy showed inactive colitis with multiple 5 mm to 1 cms pseudopolyps. Patchy moderately active colitis from 25 to 35 cms - biopsies obtained. Surveillance biopsies obtained every 10 cm from the left colon. Pt was advised to start sulfasalazine 1 gram three times daily. Repeat colonoscopy in 3 yrs (due 02/2025) Code(s): K51.90 - Ulcerative colitis, unspecified, without complications Plan: cont Sulfasalzine (2) HTN (hypertension): Code(s): I10 - Essential (primary) hypertension Plan: cont meds (3) Hyperlipidemia: Code(s): E78.5 - Hyperlipidemia, unspecified Plan: cont statin (4) DM type 2 (diabetes mellitus, type 2): Comment: diarrhea from 1000 mg , cannot afford Jardience Code(s): E11.9 - Type 2 diabetes mellitus without complications Plan: A1C 7,1, ADA diet, exercise, weight loss discussed, cont Metformin, f/u 6 months (5) Annual physical exam: Code(s): Z00.00 - Encounter for general adult medical examination without abnormal findings Orders: Orders Lipid Panel 6 Months E11.9 - Type 2 diabetes mellitus without complications, E78.5 - Hyperlipidemia, unspecified, I10 - Essential (primary) hypertension, Z00.00 - Encounter for general adult medical examination without abnormal findings Microalbumin, Random (w Creat) 6 Months E11.9 - Type 2 diabetes mellitus without complications, E78.5 - Hyperlipidemia, unspecified, I10 - Essential (primary) hypertension, Z00.00 - Encounter for general adult medical examination without abnormal findings Comprehensive Floweree. Panel Fast 6 Months E11.9 - Type 2 diabetes mellitus without complications, E78.5 - Hyperlipidemia, unspecified, I10 - Essential (primary) hypertension, Z00.00 - Encounter for general adult medical examination without abnormal findings Hemoglobin A1c 6 Months E11.9 - Type 2 diabetes mellitus without complications, E78.5 - Hyperlipidemia, unspecified, I10 - Essential (primary) hypertension, Z00.00 - Encounter for general adult medical examination without abnormal findings TSH reflex Free T4 6 Months E11.9 - Type 2 diabetes mellitus without complications, E78.5 - Hyperlipidemia, unspecified, I10 - Essential (primary) hypertension, Z00.00 - Encounter for general adult medical examination without abnormal findings Medications: Discontinued Jardiance (empagliflozin) Discontinued Reason: Doctor's Order 10 mg PO DAILY 90 tabs 1RF NS cholestyramine (with sugar) 4 gram administer w/meal; avoid other meds within 1hr before or 4-6hr after dose Discontinued Reason: Doctor's Order 4 grams PO DAILY 30 days PRN 348.6 grams 1RF diarrhea and urgency Quality Reporting (2019) Depression/Bipolar (159/160/161/177) PHQ-9: Total score: 4 Coding Level of Care Code Medicare Subsequent (G0439) Diagnoses Ulcerative colitis K51.90 HTN (hypertension) I10 Hyperlipidemia E78.5 DM type 2 (diabetes mellitus, type 2) E11.9 Annual physical exam Z00.00 CPT Codes Advance Care Planning - Time spent: 1-15 minutes, not on file ([id number]) Advance Care Planning Advance Care Planning discussion: Exists, not on file Forms completed: Health Care Proxy Time spent: 1-15 minutes, not on file
[2023-10-10 09:26] VITALS: BP 112/76; PULSE 67; O2SAT 98
== END 2023-10-10 10:28 | disposition home or self-care (01) ==
PROVIDERS: PCP Internal Medicine; Visit Provider Internal Medicine
DX: K51.90 Ulcerative colitis, unspecified, without complications (principal); I10 Essential (primary) hypertension; E78.5 Hyperlipidemia, unspecified; E11.9 Type 2 diabetes mellitus without complications; Z00.00 Encounter for general adult medical examination without abnormal findings
CPT/HCPCS: 1124F; G0439

== ENCOUNTER 2023-11-26 08:24 | Emergency (ER) | payer MEDICARE, SELFPAY ==
--- NOTE | ~2023-11-26 | XR_ITS ---
EXAMINATION: XR CHEST CLINICAL INFORMATION: Cough, shortness of breath COMPARISON: None available. TECHNIQUE: AP upright portable view of the chest was obtained. 10:50 AM FINDINGS: No significant abnormality is noted involving the heart, lungs, mediastinum, bony thorax or soft tissues. XR/XR chest 1V IMPRESSION: Unremarkable examination.
[2023-11-26 08:51] VITALS: BP 129/67; PULSE 77; RESP 18; TEMP 36.6; O2SAT 93
--- NOTE | 2023-11-26 10:44 | ED.GENADULT ---
HPI - General Adult General Chief complaint: General Medical Stated complaint: Covid+/Diff breathing Time Seen by Provider: 11/26/23 10:37 Source: patient Mode of arrival: ambulatory Limitations: no limitations History of Present Illness HPI narrative: 77-year-old female presents to the emergency department for evaluation of dry cough, sore throat, fatigue, malaise, myalgias, going on for the past 3 days, at home COVID positive. Patient reports that is bothering her most is the sore throat. Able to eat and drink however. Denies chest pain, fevers, chills, nausea, vomiting, diarrhea, abdominal pain, headache, vision changes in dizziness. Tested covid + at home yesterday. Related Data Home Medications Medication Instructions Recorded Confirmed blood-glucose meter ([employer]Touch #1 ea 07/04/21 10/10/23 Ultra2 Meter) eiukhpkx-ukpmjae-bisl-lutein tablet tab PO 10/23/21 10/10/23 Previous Rx's Medication Instructions Recorded blood-glucose meter ([employer]Touch #1 ea 06/02/21 Ultra2 Meter kit) lancing device with lancets kit #100 ea 07/04/21 (Night [employer] Lancing Device kit) metformin 500 mg tablet,extended 1,000 mg (2 x 500 mg) PO DAILY 09/05/22 release 24 hr #180 tabs lisinopril 5 mg tablet 5 mg PO DAILY #90 tabs 01/04/23 atenolol 25 mg tablet 25 mg PO DAILY #90 tabs 02/19/23 atorvastatin 20 mg tablet 20 mg PO DAILY #90 tabs 02/19/23 sulfasalazine 500 mg tablet 0.5 g PO BID 60 days #120 tabs 05/31/23 lancets 30 gauge ([employer]Touch Activation Life #100 ea 07/26/23 Plus Lancet) blood sugar diagnostic ([employer]Touch #100 ea 07/30/23 Ultra Test strips) Magic Mouthwash 5 ml PO TID #240 mL 11/26/23 Diphen/Lido/Antacid 1:1:1 240 mL suspension albuterol sulfate 90 mcg/actuation 2 inh inhalation Q4-6H PRN 11/26/23 breath activated powder inhaler shortness of breath #1 ea benzonatate 100 mg capsule 100 mg PO BID PRN cough #20 caps 11/26/23 Allergies Allergy/AdvReac Type Severity Reaction Status Date / Time amoxicillin [AMOXICILLIN] Allergy Intermediate RASH Verified 11/26/23 08:50 Review of Systems Review of Systems: Yes all other systems are reviewed and are negative [facility] Past Medical History Attestation statement: The following information was validated with the patient. Source: old records reviewed and nursing notes reviewed Onset Date is defined in the Problem List Problems that require an onset date and time if occurred within 24 hrs of arrival to the ED Aortic Dissection and Rupture; Neurologic impairment; Cardiopulmonary Arrest; Endotracheal Intubation; Insertion or Replacement of Mechanical Circulatory Assist Device Medical History History of ulcerative colitis History of kidney stones Basal cell carcinoma Foot pain, right Mammogram normal HTN (hypertension) Hyperlipidemia DM type 2 (diabetes mellitus, type 2) Surgical History Hx of hysterectomy Hx of colonoscopy Family History Family History Father Hypertension Heart disease Colon cancer Mother Hypertension Diabetes Heart disease Other Substance use disorder Social History Social History Housing: House Patient Tobacco Use Status: Never used Tobacco e-Cigarette/Vaping Use: Never Used Second Hand Smoke Exposure: Yes Advance Directives: Yes Advance Directives on File: Yes Advance Directives Date on File: 09/06/21 service: No Current occupational status: retired Current occupational exposures/hazards: No Cognitive needs: No Hearing needs: No Vision needs: No Physical Exam ED Vital Signs: Vital Signs - 24 hr 11/26/23 08:51 11/26/23 10:58 Temperature 97.9 F 98.3 F Pulse Rate 77 61 Respiratory Rate 18 16 Blood Pressure 129/67 95/58 L Pulse Oximetry 93 95 Oxygen Delivery Method Room Air Room Air BMI result Body Mass Index 30.0 vss Appearance: Alert.? Oriented X3.? No acute distress.? Head: Normocephalic, atraumatic, no step-offs or deformities Eyes: Pupils equal, round and reactive to light.? ENT: Pharynx normal.? Uvula midline. Speaking in full sentences controlling secretions well. Well appearing. Neck: Normal inspection.? Neck supple.? CVS: Normal heart rate and rhythm.? Pulses normal.? Respiratory: No respiratory distress.? Breath sounds normal.? Abdomen: Soft and nontender.? Skin: Skin warm and dry.? Normal skin color.? Normal skin turgor.? Extremities: No lower extremity edema.? No calf ttp. 5/5 strength to bilateral upper and lower extremities Neuro: Oriented X 3.? No motor deficit.? No sensory deficit. CN 2-12 intact Course Reevaluation(s) Reevaluation #1: Patient's strep test negative. Chest x-ray unremarkable. Waiting for final radiology read. Patient to be discharged home with Magic mouthwash, prednisone. I suspect symptoms are secondary to COVID-19. Educated patient on diagnosis and treatment plan, answered all question, patient verbalizes understanding. At this time patient will be discharged home, advised to return with new or worsening symptoms. Educated on worrisome signs and symptoms and when to return. At this time I feel comfortable discharge home. Time: 11:30 Medical Decision Making Medical Decision Making MDM Narrative: 77-year-old female presents fatigue, malaise, dry cough, sore throat the past 3 days. Physical exam benign History and physical exam concerning for symptoms related to COVID-19 versus viral illness. Unlikely strep pharyngitis, retropharyngeal abscess, peritonsillar abscess, threat to airway, respiratory distress, ACS, PE or dissection. Plan will obtain x-ray. No indication for labs, EKG Differential Diagnosis Differential Diagnoses: The differential diagnosis associated with the presentation includes History and physical exam concerning for symptoms related to COVID-19 versus viral illness. Unlikely strep pharyngitis, retropharyngeal abscess, peritonsillar abscess, threat to airway, respiratory distress, ACS, PE or dissection. Admission/Observation Consideration of admission/observation: Escalation of care including admission/observation considered Unlikely Lab Data Labs: Lab Results 11/26/23 Range/Units 10:55 S. pyogenes GrpA ROSALIO Negative (Negative) Independent Interpretation I performed an independent interpretation of an: Plain X-Ray Radiology Impression Discussion of test interpretation with radiology: I have reviewed the radiologist's reading. Discharge Plan Discharge Clinical Impression: COVID-19 Patient Disposition: Home, Self-Care Instructions: COVID-19 (Coronavirus Disease 2019) (ED) Additional Instructions: Take your medications as prescribed. If you were prescribed antibiotics today, it is important that you take your medication to their entirety, do not skip any doses, do not finish them early. Today you tested positive for COVID-19. Take Ibuprofen or Tylenol as needed for fevers or body aches. Quarantine for 5 days and ensure you wear a mask. After 5 days you should wear a mask for 5 days after that. Practice social distancing and good hand hygiene. Drink plenty of fluids. Follow-up with your primary care provider this week. Return to the emergency department with new or worsening symptoms. In case of emergency call 911 You can purchase a pulse oximeter from your local pharmacy or grocery store, and monitor your oxygen saturation if it goes below 94% you should return to the emergency department for further evaluation. Prescriptions: New benzonatate 100 mg capsule 100 mg PO BID PRN (Reason: cough) Qty: 20 0RF albuterol sulfate 90 mcg/actuation aerosol powdr breath activated 2 inh inhalation Q4-6H PRN (Reason: shortness of breath) Qty: 1 0RF Magic Mouthwash Diphen/Lido/Antacid 1:1:1 240 mL suspension 5 ml PO TID Qty: 240 0RF Rx Instructions: Lidocaine Viscous 2 % 80mL; diphenhydramine 12.5 mg/5 mL 80mL; aluminum-mag hydrox-simeth [id number]/5mL 80mL Swish and spit, do not swallow No Action (DME) blood-glucose meter [[employer] Ultra2 Meter] Kit See Rx Instructions .ROUTE .MEDSUPPLY Qty: 1 0RF Rx Instructions: As directed metformin 500 mg tablet extended release 24 hr 1,000 mg PO DAILY Qty: 180 3RF Rx Instructions: 1 in AM and 1 in PM lisinopril 5 mg tablet 5 mg PO DAILY Qty: 90 3RF atenolol 25 mg tablet 25 mg PO DAILY Qty: 90 3RF atorvastatin 20 mg tablet 20 mg PO DAILY Qty: 90 3RF sulfasalazine 500 mg tablet 0.5 g PO BID 60 Days Qty: 120 3RF Rx Instructions: give with food (meal/snack) (Pt complains of nausea when she takes it three times a day Thanks (DME) lancets [OneTouch Delica Plus Lancet] 30 gauge misc See Rx Instructions .Route Qty: 100 3RF Rx Instructions: Test daily (DME) OneTouch Ultra Test Strip See Rx Instructions .Route Qty: 100 1RF Rx Instructions: test glucose once a day (DME) blood-glucose meter [OneTouch Ultra2 Meter] Misc See Rx Instructions Not Applicable .MEDSUPPLY Qty: 1 Rx Instructions: As directed (DME) lancing device with lancets [OneTouch Delica Lanc Device] Kit See Rx Instructions .Route Qty: 100 0RF Rx Instructions: test one a day ntgljkgk-awwuhja-dnfa-lutein Tablet PO Referrals: Catalina Saldivar MD [Primary Care Provider] - 1 week
[2023-11-26 10:58] VITALS: BP 95/58; PULSE 61; RESP 16; TEMP 36.8; O2SAT 95
[2023-11-26 11:16] LABS: IDNOW Serial# 08D9AD1C; Strep A Nucleic Acid Negative (Negative)
== END 2023-11-26 11:56 | disposition home or self-care (01) ==
PROVIDERS: Physician Assistant; Emergency Provider Emergency Medicine; PCP Internal Medicine
DX: U07.1 COVID-19 (principal); E11.9 Type 2 diabetes mellitus without complications; I10 Essential (primary) hypertension; E78.5 Hyperlipidemia, unspecified; Z79.84 Long term (current) use of oral hypoglycemic drugs; Z79.02 Long term (current) use of antithrombotics/antiplatelets; Z79.899 Other long term (current) drug therapy
CPT/HCPCS: 71045; 87651; 99282; 99283

== ENCOUNTER 2024-03-05 09:32 | Outpatient (AMB) | payer MEDICARE, SELFPAY ==
[2024-03-05 09:36] VITALS: BP 114/57; PULSE 68; BMI 30.8
--- NOTE | 2024-03-05 09:36 | MHC.OFFVIS ---
Vital Signs 03/05/24 09:36 Height 5 ft 1 in Weight 163 lb BMI 30.8 BP 114/57 L Blood Pressure Location Lt brachial Position Sitting Pulse 68 Intake Visit Reasons: 6 month follow up Intake Note: Patient follow up for Ulcerative Colitis and fecal results. Patient cc: diarrhea and denies any other GI issues. Manager Power Required: No Accompanied by: Self / Same As Patient Allergies amoxicillin [AMOXICILLIN] Allergy (Intermediate, Verified 03/05/24 09:35) RASH Medication List - Last Reconciled 03/05/24 by Hannah Herrera MD albuterol sulfate 90 mcg/actuation 2 inhalations inhalation Q4-6H PRN atenolol 25 mg PO DAILY atorvastatin 20 mg PO DAILY benzonatate 100 mg PO BID PRN blood sugar diagnostic ([employer] Ultra Test strips) test glucose once a day blood-glucose meter ([employer]uch Ultra2 Meter) As directed blood-glucose meter ([employer]uch Ultra2 Meter kit) As directed lancets ([employer] Delica Plus Lancet) Test daily lancing device with lancets ([employer] Lancing Device kit) test one a day lisinopril 5 mg PO DAILY Magic Mouthwash Diphen/Lido/Antacid 1:1:1 5 mL PO TID metformin ER 1,000 mg (2 x 500 mg) PO DAILY gppaqwuh-anwhehh-zzhn-lutein tabs PO sulfasalazine 500 mg PO BID HPI HPI 6 month follow up: Details: GI clinic visit for this 78 year old female for follow-up of ulcerative colitis. Patient has been followed in GI by Dr. Shaffer since 2011.? LABS IN [facility] : 01/2019 CRP normal at 0.38 (elevated CRP of 0.64 in the past) 2012 IBD serologies:? Pattern consistent with ulcerative colitis.Normal Zinc and Vitamin D levels in the past. ENDOSCOPIC STUDIES: 02/2022 COLONOSCOPY SHOWED: Two small polyps removed Inactive colitis with multiple 5 mm to 1 cms pseudopolyps. Patchy moderately active colitis from 35 to 35 cms - biopsies obtained. Surveillance biopsies obtained every 10 cm from the left colon. Moderate diverticulosis seen in the sigmoid colon Small hemorrhoids on retroflexed exam. Plan:? Start mesalamine on FU visit if biopsies confirm IBD. Repeat Colonoscopy interval based on path results - in 2-3 years if polyps are adenomatous and for IBD surveillance. BIOPSIES SHOWED: D.? Colon, descending, polypectomies (2):? Hyperplastic mucosal polyps. E.? Colon, 60 cm, biopsy:? Colonic mucosa within normal limits. F. ? Colon, 50 cm, biopsy:? Chronic, mildly active, colitis. G.? Colon, 30 and 40 cm, biopsy:? Colonic mucosa within normal limits. H.? Colon, 10 and 20 cm, biopsy:? Colonic mucosa within normal limits. I.? Rectum, 2 cm, biopsy:? Chronic, mildly active, proctitis. COMMENT:? No dysplasia or granulomata are seen. IBD SUMMARY YEAR OF DIAGNOSIS:? 2006 DISEASE EXTENT: Pancolitis - worse in rectosigmoid area LAST COLONOSCOPY FINDINGS: 03/2013 NEXT COLON DUE:? EXTRAINTESTINAL MANIFESTATIONS:? None GI SURGERY:? None PAST TREATMENTS: Flory Took steroids after her last big flare in 2016 CURRENT THERAPY: Discontinued Lialda a few yrs ago due to cost and has not been having symptoms Sulfasalazine 500 mg twicedaily VACCINATIONS: Flu shot:? Yearly - 2020 Hep A/B serology /vaccination TB screen: ? 2013 Negative TODAY'S VISIT: Has 3-4 soft to loose stools Intermittent diarrhea and takes imodium intermittently Thinks diarrhea may be caused by metformin Taking sulfasalazine twice a day - unable to increase due to side effects of nausea PAST VISITS: Has 3-4 loose non-bloody BMs a day Attributes diarrhea to taking metformin for diabetes. Always has loose BMs all the time - has learnt to cope with it. Can have 3-4 loose Bms a day - sometimes more Can have a BM when she sits down to pee. Denies accidents or incontinence- can have near misses Notes nausea with sulfasalazine undergoing XRT for prostate cancer for 7 to 8 weeks Can have bouts of urgency -? 2-3 times a week associated with watery BMs.. Episodes of urgency are not related to food - notes urgency even if she does not eat. Taking sulfasalazine 500 mg twice daily - unable to tolerate 1 gram twice daily due to nausea. Has 3-4 BMs a day depending on her diet. Stopped drinking lucia water and probiotics. Diagnosed with DM in May and noted explosive watery diarrhea after starting Metformin. Continuing to take the Metformin since other medications are more expensive. Has 4 to 6 BMs per day without blood or mucous. Patient denies symptoms of heartburn, dysphagia, nausea, vomiting, or weight.? Unable to go out and afraid to eat due to diarrhea Patient denies major cardiac or pulmonary problems, loud snoring or sleep apnea Denies problems with anesthesia in the past. Denies being on chronic anticoagulation. Patient denies known family history of IBD, colon polyps,? or other GI malignancies. Dad had colon cancer in his late 60's. 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 , lives with her and has 3 children. PAST GI HISTORY BY REVIEW OF MEDICAL RECORDS: 02/[address] Shaffer:The patient is a 73 year old female with a PMHx of UC and IBD who presents? today for a follow up. She reports a GI bug 6 weeks ago, with vomiting and? diarrhea. Her symptoms had resolved within a week, and she has not had any? diarrhea or vomiting since that time. She has not used Lialda in 1 year due to? how much it costs. She has not had any symptoms despite being off the? medication. She has looked into generic Lialda, which is more reasonable for her? budget. She says she uses turmeric and drinks water with lucia root, and takes? a probiotic. She denies any recent flare ups. 1. Ulcerative colitis, left sided, with rectal bleeding - K51.511, Has not? had bleeding for >1 year. 2. Colon cancer screening - Z12.11, Father had colon? cancer. Pt reports doing well. She experienced a GI bug 6 weeks ago, but her? symptoms resolved and did not seem to affect her UC. She is in remission. She? mentioned that her cousin is using generic Lialda(Miguel A), and that it is more in? her philippe range. She has not used Lialda in 1 year and has not had any recurrent? symptoms.The last time she used Lialda was in 2016 after an E. coli infection? with post infectious diarrhea with a ? flare of her IBD. Blood work on? 03/06/19 showed no evidence of anemia. WBCs WNL. Labs from 1 month ago showed CRP? WNL and has been since 2017 Pt is due for a repeat colonoscopy to evaluate? her IBD. She also has a family history of colon cancer in her father.? Colonoscopy in 2001 did not show any polyps. Repeat on 02/02/09 showed active? colitis in the R, L and most active in rectosigmoid colon. No tubular adenoma.? [place] in 2012 showed mucosal?abdiel [facility] Medical History History of ulcerative colitis History of kidney stones Basal cell carcinoma Foot pain, right Mammogram normal HTN (hypertension) Hyperlipidemia DM type 2 (diabetes mellitus, type 2) Surgical History Hx of hysterectomy Hx of colonoscopy Family History Father Hypertension Heart disease Colon cancer Mother Hypertension Diabetes Heart disease Other Substance use disorder Social History Housing: House Patient Tobacco Use Status: Never used Tobacco e-Cigarette/Vaping Use: Never Used Second Hand Smoke Exposure: Yes Advance Directives Date on File: 09/06/21 service: No Current occupational status: retired Current occupational exposures/hazards: No Cognitive needs: No Hearing needs: No Vision needs: No Review of Systems Const All systems reviewed & are unremarkable except as noted in HPI and below Physical Exam Vital Signs: Last Vital Signs Pulse 68 03/05/24 09:36 BP 114/57 L 03/05/24 09:36 BMI result Body Mass Index 30.8 Const General: no acute distress HEENT Head: Yes normal to inspection Ears: hearing grossly normal bilaterally Neck Neck: Yes no lymphadenopathy and Yes supple Resp Effort & Inspection: normal respiratory effort Auscultation: clear to auscultation bilaterally Cardio Rhythm: regular rhythm Heart sounds: S1 normal heart sound present and S2 normal heart sound present GI Inspection: Yes normal to inspection Palpation (GI): Soft to palpation Percussion: Yes normal to percussion Auscultation: normal bowel sounds Extrem General: Yes no clubbing, cyanosis or edema Assessment & Plan Assessment & Plan (1) Ulcerative colitis: Comment: 02/2022 Colonoscopy showed inactive colitis with multiple 5 mm to 1 cms pseudopolyps. Patchy moderately active colitis from 25 to 35 cms - biopsies obtained. Surveillance biopsies obtained every 10 cm from the left colon. Pt was advised to start sulfasalazine 1 gram three times daily. Repeat colonoscopy in 3 yrs (due 02/2025) Code(s): K51.90 - Ulcerative colitis, unspecified, without complications Category: Medical Plan 78 YF diagnosed with ulcerative Gordon-colitis (worse in rectosigmoid area) treated with Lialda in the past. She discontinued Lialda a few yrs ago due to cost and has not been having symptoms Pt was diagnosed with DM in May, and noted explosive watery diarrhea after starting Metformin. Pt admits to taking antibiotics prior to onset of diarrhea. She is continuing to take the Metformin since other medications are more expensive. Patient was advised to have a stool test for C diff colitis - negative She was advised a trial of a fiber supplement for diarrhea. 02/2022 Colonoscopy showed?inactive colitis with multiple 5 mm to 1 cms pseudopolyps. Patchy moderately active colitis from 25 to 35 cms - biopsies obtained. Surveillance biopsies obtained every 10 cm from the left colon. Pt was advised to start sulfasalazine 500 mg twice daily for a week and then increase to 1 gram twice daily. Repeat colonoscopy in 3 yrs (due 02/2025) 03/07/23 - pt was advised to increase sulfasalazine to 500 mg 3 times daily since she is continuing to have 3-4 loose stools a day sometimes with urgency 09/05/23 Pt unable to increase sulfasalazine to three times a day due to nausea Advised to check fecal calprotectin - normal at 17 03/05/24 Has 3-4 soft to loose stools Intermittent diarrhea and takes imodium intermittently Thinks diarrhea may be caused by metformin Taking sulfasalazine twice a day - unable to increase due to side effects of nausea FU in 6 months Orders: Orders Complete Blood Count no Diff 03/25/24 K51.90 - Ulcerative colitis, unspecified, without complications
== END 2024-03-05 11:10 | disposition home or self-care (01) ==
PROVIDERS: PCP Internal Medicine; Visit Provider Internal Medicine Gastroenterology
DX: K51.90 Ulcerative colitis, unspecified, without complications (principal)
CPT/HCPCS: 99214

== ENCOUNTER → 2024-03-05 09:32 | Outpatient (BNVA) | payer MEDICARE, SELFPAY | PROVIDERS: PCP Internal Medicine; Visit Provider Internal Medicine Gastroenterology | DX: K51.90 Ulcerative colitis, unspecified, without complications (principal) | CPT/HCPCS: 99212 ==

== ENCOUNTER 2024-04-03 07:37 | Outpatient (REF) | payer MEDICARE, SELFPAY ==
[2024-04-03 10:55] LABS: Hematocrit 40.7 % (37.0-47.0); Hemoglobin 13.3 g/dl (12.0-16.0); Mean Corpuscular HGB Conc 32.7 g/dl (31.0-35.0); Mean Corpuscular Volume 88.7 fL (80.0-98.0); Mean Platelet Volume 9.6 fL (9.4-12.3); Platelet Count 229 X10*3/uL (160-400); Red Blood Count 4.59 X10*6/uL (4.20-5.50); Red Cell Distribution Width 11.9 % (11.0-16.0); White Blood Count 7.9 X10*3/uL (4.8-10.8)
[2024-04-03 11:01] LABS: Estimated Average Glucose 166 mg/dL; Hemoglobin A1c % 7.4 % (<6.0)
[2024-04-03 11:21] LABS: Alanine Aminotransferase 11 U/L (0-31); Albumin Level 4.1 g/dL (3.5-5.0); Alkaline Phosphatase 92 U/L (39-117); Anion Gap 12 (12-20); Aspartate Amino Transferase 12 U/L (5-31); Bilirubin Total 0.4 mg/dL (0.0-1.0); Blood Urea Nitrogen 20 mg/dL (9-16); Calcium 9.7 mg/dL (8.4-10.2); Carbon Dioxide 27 mmol/L (22-29); Chloride 105 mmol/L (96-108); Cholesterol 177 mg/dL (<200); Estimated Glomerular Filt Rate > 60; Glucose Fasting 171 mg/dL (60-99); HDL Cholesterol 55 mg/dL (>40); LDL Cholesterol Calculated 89 mg/dL (<100); Potassium 4.3 mmol/L (3.3-5.1); Sodium 140 mmol/L (135-145); TSH reflex Free T4 1.62 uIU/mL (0.32-4.0); Total Protein 7.1 g/dL (6.5-8.0); Triglycerides 165 mg/dL (<150)
[2024-04-03 11:30] LABS: Creatinine Urine 112.58 mg/dL; Microalbum/Creatinine Ratio Ur 11.5 ug/mg cr (<30)
== END 2024-04-03 07:38 | disposition home or self-care (01) ==
LOC: HO.HMGCLDS 07:37
PROVIDERS: PCP Internal Medicine; Referring Provider Internal Medicine Gastroenterology; Visit Provider Internal Medicine
DX: Z00.00 Encounter for general adult medical examination without abnormal findings (principal); E78.5 Hyperlipidemia, unspecified; E11.9 Type 2 diabetes mellitus without complications; I10 Essential (primary) hypertension; K51.90 Ulcerative colitis, unspecified, without complications
CPT/HCPCS: 36415; 80053; 80061; 82043; 82570; 83036; 84443; 85027

== ENCOUNTER 2024-04-07 10:47 | Outpatient (AMB) | payer MEDICARE, SELFPAY ==
[2024-04-07 10:53] VITALS: BP 124/70; PULSE 69; O2SAT 95; BMI 30.6
--- NOTE | 2024-04-07 10:53 | A.OFFPC_ITS ---
Vital Signs 04/07/24 10:53 Height 5 ft 1 in Weight 162 lb BMI 30.6 BP 124/70 Blood Pressure Location Lt brachial Position Sitting Pulse 69 Pulse Source Pulse Oximeter Pulse Oximetry (%) 95 Oxygen Delivery Method Room Air Intake Visit Reasons: 6 month follow up Intake Note: Pt is here today for 6 months follow up visit on labs. Allergies amoxicillin [AMOXICILLIN] Allergy (Intermediate, Verified 04/07/24 10:56) RASH Medication List - Last Reconciled 04/07/24 by Catalina Saldivar MD albuterol sulfate 90 mcg/actuation 2 inhalations inhalation Q4-6H PRN atenolol 25 mg PO DAILY atorvastatin 20 mg PO DAILY blood sugar diagnostic ([employer] Ultra Test strips) test glucose once a day blood-glucose meter ([employer] Ultra2 Meter) As directed blood-glucose meter ([employer] Ultra2 Meter kit) As directed lancets ([employer] Delica Plus Lancet) Test daily lancing device with lancets ([employer] Lancing Device kit) test one a day lisinopril 5 mg PO DAILY Magic Mouthwash Diphen/Lido/Antacid 1:1:1 5 mL PO TID metformin ER 1,000 mg (2 x 500 mg) PO DAILY xvwujzxd-tbzwfdp-caqb-lutein tabs PO sulfasalazine 500 mg PO BID Tobacco use date assessed: 04/07/24 Fall risk assessment: No Falls in past year Last assessed Fall Risk: 04/07/24 Dental Screening Dental Screen Date: 04/07/24 Did you have a dental visit in the last 12 months?: Yes Did you have a dental problem in the last 6 months where you did not have access to dental care?: No Was dental information given to patient?: Patient has dentist HPI 6 month follow up HPI Details Pt presents for f/u DM 2, HTN, hyperlipid, stable on meds. PFSH Medical History History of ulcerative colitis History of kidney stones Basal cell carcinoma Foot pain, right Mammogram normal HTN (hypertension) Hyperlipidemia DM type 2 (diabetes mellitus, type 2) Surgical History Hx of hysterectomy Hx of colonoscopy Family History Father Hypertension Heart disease Colon cancer Mother Hypertension Diabetes Heart disease Other Substance use disorder Social History Housing: House Patient Tobacco Use Status: Never used Tobacco e-Cigarette/Vaping Use: Never Used Second Hand Smoke Exposure: Yes Advance Directives Date on File: 09/06/21 service: No Current occupational status: retired Current occupational exposures/hazards: No Cognitive needs: No Hearing needs: No Vision needs: No Questionnaire PHQ-9 Over the last 2 weeks, how often have you been bothered by any of the following problems? 1. Little interest or pleasure in doing things: not at all 2. Feeling down, depressed, or hopeless: not at all 3. Trouble falling or staying asleep, or sleeping too much: not at all 4. Feeling tired or having little energy: not at all 5. Poor appetite or overeating: not at all 6. Feeling bad about yourself - or that you are a failure or have let yourself or your family down: not at all 7. Trouble concentrating on things, such as reading the newspaper or watching television: not at all 8. Moving or speaking so slowly that other people could have noticed. Or the opposite - being so fidgety or restless that you have been moving around a lot more than usual: not at all 9. Thoughts that you would be better off or of hurting yourself in some way: not at all Total score: 0 Depression Screening Interpretation: Negative Depression Screening Done: Yes Source: Developed by Drs. Bernard Damon, Debra Gunn, Nicholas Garcia and colleagues, with an educational ivory from [employer]. Thrive Questionnaire Date Thrive assessed: 04/07/24 I am a: Patient What is your living situation today?: I have a steady place to live Within the past 12 months, did the food you bought not last and you didn't have the money to get more?: Never true Within the past 12 months, did you worry whether your food would run out before you got money to buy more?: Never true Do you have trouble paying for medicines?: No Do you have trouble getting transportation to medical appointments?: No Do you have trouble paying your heating and electricity bill?: No Do you have trouble taking care of your child, family member or friend?: No Do you have trouble with day-to-day activities such as bathing, preparing meals, shopping, managing finances, etc.?: No Are you currently unemployed and looking for a job?: No Are you interested in more education?: No Please select the resources that you would like help with: None THRIVE Score: 0 JORDY-7 AMB Questionnaire JORDY-7 Date JORDY - 7 assessed: 04/07/24 Feeling nervous, anxious, or on edge: 0 = Not at all Not being able to stop or control worryin = Not at all Worrying too much about different things: 0 = Not at all Trouble relaxin = Not at all Being so restless that it is hard to sit still: 0 = Not at all Becoming easily annoyed or irritable: 0 = Not at all Feeling afraid as if something awful might happen: 0 = Not at all Total JORDY-7 score (0-4 normal; 5-9 mild; 10-14 moderate; 15-21 severe): 0 Source: Developed by Drs. Bernard Damon, Debra Gunn, Nicholas Garcia and colleagues, with an educational ivory from [employer]. Review of Systems Const All systems reviewed & are unremarkable except as noted in HPI and below Reports no additional complaints Eyes Reports no additional complaints ENT Reports no additional complaints Card Reports no additional complaints Resp Reports no additional complaints GI Reports no additional complaints Reports no additional complaints Physical exam (Primary Care) Vital Signs: Last Vital Signs Pulse 69 04/07/24 10:53 BP 124/70 04/07/24 10:53 Pulse Ox 95 04/07/24 10:53 Oxygen Delivery Method Room Air 04/07/24 10:53 BMI result Body Mass Index 30.6 Tobacco/Smoking Status: Tobacco use Status Tobacco use date assessed 04/07/24 04/07/24 10:58 Patient Tobacco Use Status Never used Tobacco 04/07/24 10:58 e-Cigarette/Vaping Use Never Used 04/07/24 10:58 Depression Screening Interpretation: Negative Thrive Assessment: Date of Thrive Assessment Date Thrive assessed 02/25/23 04/07/24 10:58 Const General: no acute distress HENMT Face and sinus: Yes normal facial exam Eyes General: appearance normal, both eyes and all related structures Resp Effort & Inspection: normal respiratory effort Auscultation: clear to auscultation bilaterally Cardio Rhythm: regular rhythm Heart sounds: S1 normal heart sound present and S2 normal heart sound present GI Inspection: Yes normal to inspection Palpation (GI): Soft to palpation Percussion: Yes normal to percussion Auscultation: normal bowel sounds Assessment and Plan Assessment & Plan (1) DM type 2 (diabetes mellitus, type 2): Comment: diarrhea from 1000 mg , cannot afford Jardience Code(s): E11.9 - Type 2 diabetes mellitus without complications Plan: A1c is increased to 7.4, ADA diet increase exercise the patient. Patient declined taking additional medications (2) Hyperlipidemia: Code(s): E78.5 - Hyperlipidemia, unspecified Plan: Continue statin (3) HTN (hypertension): Code(s): I10 - Essential (primary) hypertension Plan: Continue current medications (4) Ulcerative colitis: Comment: 02/2022 Colonoscopy showed inactive colitis with multiple 5 mm to 1 cms pseudopolyps. Patchy moderately active colitis from 25 to 35 cms - biopsies obtained. Surveillance biopsies obtained every 10 cm from the left colon. Pt was advised to start sulfasalazine 1 gram three times daily. Repeat colonoscopy in 3 yrs (due 02/2025) Code(s): K51.90 - Ulcerative colitis, unspecified, without complications Plan: Follow-up with GI and continue sulfasalazine Orders: Orders Hemoglobin A1c 5 Months E11.9 - Type 2 diabetes mellitus without complications, E78.5 - Hyperlipidemia, unspecified, I10 - Essential (primary) hypertension, K51.90 - Ulcerative colitis, unspecified, without complications Lipid Panel 5 Months E11.9 - Type 2 diabetes mellitus without complications, E78.5 - Hyperlipidemia, unspecified, I10 - Essential (primary) hypertension, K51.90 - Ulcerative colitis, unspecified, without complications Complete Blood Count Auto Diff 5 Months E11.9 - Type 2 diabetes mellitus without complications, E78.5 - Hyperlipidemia, unspecified, I10 - Essential (primary) hypertension, K51.90 - Ulcerative colitis, unspecified, without complications Comprehensive [place]. Panel Fast 5 Months E11.9 - Type 2 diabetes mellitus without complications, E78.5 - Hyperlipidemia, unspecified, I10 - Essential (primary) hypertension, K51.90 - Ulcerative colitis, unspecified, without complications Microalbumin, Random (w Creat) 5 Months E11.9 - Type 2 diabetes mellitus without complications, E78.5 - Hyperlipidemia, unspecified, I10 - Essential (primary) hypertension, K51.90 - Ulcerative colitis, unspecified, without complications Medications: New blood-glucose meter ([employer] Ultra2 Meter) As directed 1 ea 0RF diabetes mellitus Coding Level of Care Code Est Pt Level 4 (23142) Diagnoses DM type 2 (diabetes mellitus, type 2) E11.9 Hyperlipidemia E78.5 HTN (hypertension) I10 Ulcerative colitis K51.90
== END 2024-04-07 13:08 | disposition home or self-care (01) ==
PROVIDERS: PCP Internal Medicine; Visit Provider Internal Medicine
DX: E11.69 Type 2 diabetes mellitus with other specified complication (principal); K51.90 Ulcerative colitis, unspecified, without complications; E78.5 Hyperlipidemia, unspecified; I10 Essential (primary) hypertension
CPT/HCPCS: 99214

== ENCOUNTER 2024-07-14 12:55 | Outpatient (AMB) | payer MEDICARE, SELFPAY ==
--- NOTE | 2024-07-14 12:57 | AM.OFFWIN_ITS ---
Intake Vital Signs 07/14/24 12:59 Height 5 ft 1 in Weight 159 lb BMI 30.0 BP 118/74 Blood Pressure Location Lt brachial Position Sitting Pulse 54 Pulse Source Pulse Oximeter Temp 97.9 F Temp Source Oral Pulse Oximetry (%) 97 Oxygen Delivery Method Room Air Intake Visit Reasons: EP ?Kidney stones/LT side pain Intake Note: pt c/o LT side lower back pain, ? kidney stones Patient Tobacco Use Status: Never used Tobacco Allergies amoxicillin [AMOXICILLIN] Allergy (Intermediate, Verified 07/14/24 12:57) RASH Do you need a note to return to daycare/school/sports/work: No HPI HPI Comments History of Present Illness Details 78 y/o female patient who presents to [facility] walk in clinic with c/o left side lower back/flank pain associated with Urinary symptoms. Pt reports symptoms started this Morning - reports lower abdominal cramping and urinary urgency/frequency. Denies fevers, chills, nausea or vomiting. PFSH Medical History History of ulcerative colitis History of kidney stones Basal cell carcinoma Foot pain, right Mammogram normal HTN (hypertension) Hyperlipidemia DM type 2 (diabetes mellitus, type 2) Surgical History Hx of hysterectomy Hx of colonoscopy Family History Father Hypertension Heart disease Colon cancer Mother Hypertension Diabetes Heart disease Other Substance use disorder Social History Housing: House Patient Tobacco Use Status: Never used Tobacco e-Cigarette/Vaping Use: Never Used Second Hand Smoke Exposure: Yes Advance Directives Date on File: 09/06/21 service: No Current occupational status: retired Current occupational exposures/hazards: No Cognitive needs: No Hearing needs: No Vision needs: No Review of Systems Const All systems reviewed & are unremarkable except as noted in HPI and below Physical Exam Vital Signs: Last Vital Signs Temp 97.9 F 07/14/24 12:59 Pulse 54 07/14/24 12:59 BP 118/74 07/14/24 12:59 Pulse Ox 97 07/14/24 12:59 Oxygen Delivery Method Room Air 07/14/24 12:59 BMI result Body Mass Index 30.0 Const General: cooperative and no acute distress Orientation/consciousness: patient oriented x3 General: Yes no CVA tenderness Back/Spine/Pelvis Back: no CVA tenderness and back tenderness Neuro General: patient oriented x3, gait normal and moves all extremities Psych Speech and movement: Normal speech and movement present Results AMB Urinalysis, Automated UA Leukoctes 15 Tello/uL Last Edit by Luis Chatman CMA on 07/14/24 13:11 UA Nitrite Negative Last Edit by Luis Chatman CMA on 07/14/24 13:11 UA Urobilinogen 0.2 mg/dL Last Edit by Luis Chatman CMA on 07/14/24 13:11 UA Protein 15 mg/dL Last Edit by Luis Chatman CMA on 07/14/24 13:11 UA pH 5.5 Last Edit by Luis Chatman CMA on 07/14/24 13:11 UA Blood 200 Jarrett/uL Last Edit by Luis Chatman CMA on 07/14/24 13:11 UA Specific [place] 1.015 Last Edit by Luis Chatman CMA on 07/14/24 13:11 UA Ketone Negative Last Edit by Luis Chatman CMA on 07/14/24 13:11 UA Bilirubin 0 mg/dL Last Edit by Luis Chatman CMA on 07/14/24 13:11 UA Glucose 0 mg/dL Last Edit by Luis Chatman CMA on 07/14/24 13:11 Assessment & Plan Assessment & Plan (1) Urinary tract infection symptoms: Code(s): R39.9 - Unspecified symptoms and signs involving the genitourinary system Plan: Ordered Macrobid Hydrate with plenty of water NSAIDs for pain relief. Orders: Orders AMB Urinalysis Automated Today Z13.9 - Encounter for screening, unspecified Medications: New nitrofurantoin monohyd/m-cryst 100 mg (Macrobid) must administer with a meal/food 100 mg PO Q12H 7 days 14 caps 0RF R39.9 - Unspecified symptoms and signs involving the genitourinary system Coding Level of Care Code Est Pt Level 3 (06386) Diagnoses Urinary tract infection symptoms R39.9 Time Spent (min) 15
[2024-07-14 12:59] VITALS: BP 118/74; PULSE 54; TEMP 36.6; O2SAT 97
== END 2024-07-14 13:37 | disposition home or self-care (01) ==
PROVIDERS: PCP Internal Medicine; Visit Provider Nurse Practitioner Family
DX: R39.9 Unspecified symptoms and signs involving the genitourinary system (principal); Z13.9 Encounter for screening, unspecified
CPT/HCPCS: 81003; 99213

== ENCOUNTER 2024-09-15 09:51 | Outpatient (AMB) | payer MEDICARE, SELFPAY ==
--- NOTE | 2024-09-15 09:52 | A.OFFVIS_ITS ---
Vital Signs 09/15/24 09:53 Height 5 ft 1 in Weight 158 lb BMI 29.9 BP 124/59 L Blood Pressure Location Lt brachial Position Sitting Pulse 94 Intake Visit Reasons: 6 mnth follow up r/s from 09/03 Intake Note: Patient follow up for ulcerative Colitis and lab results Patient cc: daily diarrhea and not agood apptetite as before. Denies any other GI issues Ross Carrier Driver Required: No Accompanied by: Self / Same As Patient Allergies amoxicillin [AMOXICILLIN] Allergy (Intermediate, Verified 07/14/24 12:57) RASH Medication List - Last Reconciled 09/15/24 by Hannah Herrera MD atenolol 25 mg PO DAILY atorvastatin 20 mg PO DAILY blood sugar diagnostic ([employer] Ultra Test strips) test glucose once a day blood-glucose meter ([employer] Ultra2 Meter kit) As directed blood-glucose meter ([employer] Ultra2 Meter) As directed lancets ([employer] Delica Plus Lancet) Test daily lancing device with lancets ([employer] Delica Lancing Device kit) test one a day lisinopril 5 mg PO DAILY metformin ER 1,000 mg (2 x 500 mg) PO DAILY itfkhxtj-sqtiuds-ynpw-lutein tabs PO nitrofurantoin monohyd/m-cryst 100 mg (Macrobid) 100 mg PO Q12H 7 days sulfasalazine 500 mg PO BID 90 days HPI HPI 6 mnth follow up r/s from 09/03: Details: GI clinic visit for this 78 year old female for follow-up of ulcerative colitis. Patient has been followed in GI by Dr. Shaffer since 2011.? IBD SUMMARY YEAR OF DIAGNOSIS:? 2006 DISEASE EXTENT: Pancolitis - worse in rectosigmoid area LAST COLONOSCOPY FINDINGS: 2021 NEXT COLON DUE:? 2024 EXTRAINTESTINAL MANIFESTATIONS:? None GI SURGERY:? None PAST TREATMENTS: Flory Took steroids after her last big flare in 2017 CURRENT THERAPY: Discontinued Lialda a few yrs ago due to cost and has not been having symptoms Sulfasalazine 500 mg twice daily - unable to increase due to side effects of nausea VACCINATIONS: Flu shot:? Yearly - 2020 Hep A/B serology /vaccination TB screen: ? 2013 Negative TODAY'S VISIT: Patient cc: daily diarrhea and not a good apptetite as before. Reports wt loss of 5 lbs over the past 6 months Has 3-4 soft to loose stools - no blood in the stools Intermittent diarrhea and takes imodium intermittently (prn if she has 2 or more BM or before she goes out) Thinks diarrhea may be caused by metformin Taking sulfasalazine twice a day - unable to increase due to side effects of nausea 07/14/24 seen at walk in clinic with flank pain Thinks she may have had a kidney stone Prescribed antibiotics and has been drinking increased fluids. Pain has resolved. PAST VISITS: Has 3-4 loose non-bloody BMs a day Attributes diarrhea to taking metformin for diabetes. Always has loose BMs all the time - has learnt to cope with it. Can have 3-4 loose Bms a day - sometimes more Can have a BM when she sits down to pee. Denies accidents or incontinence- can have near misses Notes nausea with sulfasalazine undergoing XRT for prostate cancer for 7 to 8 weeks Can have bouts of urgency -? 2-3 times a week associated with watery BMs.. Episodes of urgency are not related to food - notes urgency even if she does not eat. Taking sulfasalazine 500 mg twice daily - unable to tolerate 1 gram twice daily due to nausea. Has 3-4 BMs a day depending on her diet. Stopped drinking lucia water and probiotics. Diagnosed with DM in May and noted explosive watery diarrhea after starting Metformin. Continuing to take the Metformin since other medications are more expensive. Has 4 to 6 BMs per day without blood or mucous. Patient denies symptoms of heartburn, dysphagia, nausea, vomiting, or weight.? Unable to go out and afraid to eat due to diarrhea Patient denies major cardiac or pulmonary problems, loud snoring or sleep apnea Denies problems with anesthesia in the past. Denies being on chronic anticoagulation. Patient denies known family history of IBD, colon polyps,? or other GI malignancies. Dad had colon cancer in his late 60's. 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 , lives with her and has 3 children. PAST GI HISTORY BY REVIEW OF MEDICAL RECORDS: 02/[address] Shaffer:The patient is a 73 year old female with a PMHx of UC and IBD who presents? today for a follow up. She reports a GI bug 6 weeks ago, with vomiting and? diarrhea. Her symptoms had resolved within a week, and she has not had any? diarrhea or vomiting since that time. She has not used Lialda in 1 year due to? how much it costs. She has not had any symptoms despite being off the? medication. She has looked into generic Lialda, which is more reasonable for her? budget. She says she uses turmeric and drinks water with lucia root, and takes? a probiotic. She denies any recent flare ups. 1. Ulcerative colitis, left sided, with rectal bleeding - K51.511, Has not? had bleeding for >1 year. 2. Colon cancer screening - Z12.11, Father had colon? cancer. Pt reports doing well. She experienced a GI bug 6 weeks ago, but her? symptoms resolved and did not seem to affect her UC. She is in remission. She? mentioned that her cousin is using generic Lialda(Miguel A), and that it is more in? her philippe range. She has not used Lialda in 1 year and has not had any recurrent? symptoms.The last time she used Lialda was in 2016 after an E. coli infection? with post infectious diarrhea with a ? flare of her IBD. Blood work on? 03/06/19 showed no evidence of anemia. WBCs WNL. Labs from 1 month ago showed CRP? WNL and has been since 2017 Pt is due for a repeat colonoscopy to evaluate? her IBD. She also has a family history of colon cancer in her father.? Colonoscopy in 2001 did not show any polyps. Repeat on 02/02/09 showed active? colitis in the R, L and most active in rectosigmoid colon. No tubular adenoma.? [place] in 2012 showed mucosal?remission [facility] 01[facility]2019 CRP normal at 0.38 (elevated CRP of 0.64 in the past) 2012 IBD serologies:? Pattern consistent with ulcerative colitis.Normal Zinc and Vitamin D levels in the past. ENDOSCOPIC STUDIES: 02/2022 COLONOSCOPY SHOWED: Two small polyps removed Inactive colitis with multiple 5 mm to 1 cms pseudopolyps. Patchy moderately active colitis from 35 to 35 cms - biopsies obtained. Surveillance biopsies obtained every 10 cm from the left colon. Moderate diverticulosis seen in the sigmoid colon Small hemorrhoids on retroflexed exam. Plan:? Start mesalamine on FU visit if biopsies confirm IBD. Repeat Colonoscopy interval based on path results - in 2-3 years if polyps are adenomatous and for IBD surveillance. BIOPSIES SHOWED: D.? Colon, descending, polypectomies (2):? Hyperplastic mucosal polyps. E.? Colon, 60 cm, biopsy:? Colonic mucosa within normal limits. F. ? Colon, 50 cm, biopsy:? Chronic, mildly active, colitis. G.? Colon, 30 and 40 cm, biopsy:? Colonic mucosa within normal limits. H.? Colon, 10 and 20 cm, biopsy:? Colonic mucosa within normal limits. I.? Rectum, 2 cm, biopsy:? Chronic, mildly active, proctitis. COMMENT:? No dysplasia or granulomata are seen. [facility] Medical History History of ulcerative colitis History of kidney stones Basal cell carcinoma Foot pain, right Mammogram normal HTN (hypertension) Hyperlipidemia DM type 2 (diabetes mellitus, type 2) Surgical History Hx of hysterectomy Hx of colonoscopy Family History Father Hypertension Heart disease Colon cancer Mother Hypertension Diabetes Heart disease Other Substance use disorder Social History Housing: House Patient Tobacco Use Status: Never used Tobacco e-Cigarette/Vaping Use: Never Used Second Hand Smoke Exposure: Yes Advance Directives Date on File: 09/06/21 service: No Current occupational status: retired Current occupational exposures/hazards: No Cognitive needs: No Hearing needs: No Vision needs: No Review of Systems Const All systems reviewed & are unremarkable except as noted in HPI and below Physical Exam Vital Signs: Last Vital Signs Pulse 94 09/15/24 09:53 BP 124/59 L 09/15/24 09:53 BMI result Body Mass Index 29.9 Const General: healthy appearing and no acute distress Nutritional Appearance: overweight Orientation/consciousness: patient oriented x3 Limitations: no limitations HEENT Head: Yes normal to inspection Ears: hearing grossly normal bilaterally Eyes Sclerae: sclerae normal Pupils: Equal, round and reactive pupils present Neck Neck: Yes normal visual inspection Chest Chest palpation & inspection: normal inspection of the chest Resp Effort & Inspection: normal respiratory effort Auscultation: clear to auscultation bilaterally Cardio Palpation: normal PMI Rate: regular rate Rhythm: regular rhythm Heart sounds: S1 normal heart sound present, S2 normal heart sound present and no murmurs GI Palpation (GI): Soft to palpation, nontender and No hepatosplenomegaly present Auscultation: normal bowel sounds Rectal Exam - Female: deferred Skin General skin exam: no rashes or lesions noted Neuro General: patient oriented x3, gait normal and moves all extremities Cranial nerves: Yes Equal, round and reactive pupils present Psych Appearance: grossly normal Mental Status: mental status grossly normal Assessment & Plan Assessment & Plan (1) Ulcerative colitis: Comment: 02/2022 Colonoscopy showed inactive colitis with multiple 5 mm to 1 cms pseudopolyps. Patchy moderately active colitis from 25 to 35 cms - biopsies obtained. Surveillance biopsies obtained every 10 cm from the left colon. Pt was advised to start sulfasalazine 1 gram three times daily. Repeat colonoscopy in 3 yrs (due 02/2025) Code(s): K51.90 - Ulcerative colitis, unspecified, without complications Category: Medical Plan 78 YF diagnosed with ulcerative Gordon-colitis (worse in rectosigmoid area) treated with Lialda in the past. She discontinued Lialda a few yrs ago due to cost and has not been having symptoms Pt was diagnosed with DM in May, and noted explosive watery diarrhea after starting Metformin. Pt admits to taking antibiotics prior to onset of diarrhea. She is continuing to take the Metformin since other medications are more expensive. Patient was advised to have a stool test for C diff colitis - negative She was advised a trial of a fiber supplement for diarrhea. 02/2022 Colonoscopy showed?inactive colitis with multiple 5 mm to 1 cms pseudopolyps. Patchy moderately active colitis from 25 to 35 cms - biopsies obtained. Surveillance biopsies obtained every 10 cm from the left colon. Pt was advised to start sulfasalazine 500 mg twice daily for a week and then increase to 1 gram twice daily. Repeat colonoscopy in 3 yrs (due 02/2025) 03/07/23 - pt was advised to increase sulfasalazine to 500 mg 3 times daily since she is continuing to have 3-4 loose stools a day sometimes with urgency 09/05/23 Pt unable to increase sulfasalazine to three times a day due to nausea Fecal calprotectin - normal at 17 09/15/24 Has 3-4 soft to loose stools - no blood in the stools Intermittent diarrhea and takes imodium intermittently (prn if she has 2 or more BM or before she goes out) Pt advised to schedule a colonoscopy FU in 6 months Coding Level of Care Code Est Pt Level 4 (14247) Diagnoses Ulcerative colitis K51.90 Time Spent (min) 23
[2024-09-15 09:53] VITALS: BP 124/59; PULSE 94; BMI 29.9
== END 2024-09-15 10:57 | disposition home or self-care (01) ==
PROVIDERS: PCP Internal Medicine; Visit Provider Internal Medicine Gastroenterology
DX: K51.90 Ulcerative colitis, unspecified, without complications (principal)
CPT/HCPCS: 99214

== ENCOUNTER → 2024-09-15 09:51 | Outpatient (BNVA) | payer MEDICARE, SELFPAY | PROVIDERS: PCP Internal Medicine; Visit Provider Internal Medicine Gastroenterology | DX: K51.90 Ulcerative colitis, unspecified, without complications (principal) | CPT/HCPCS: 99212 ==

== ENCOUNTER 2024-10-13 07:48 | Outpatient (REF) | payer MEDICARE, SELFPAY ==
[2024-10-13 10:01] LABS: MANUAL DIFF FLAG NO
[2024-10-13 10:18] LABS: Basophils Absolute Auto 0.1 X10*3/uL (0.0-0.2); Basophils Percent Auto 0.7 % (0-2); Eosinophils Absolute Auto 0.3 X10*3/uL (0.0-0.4); Eosinophils Percent Auto 4.7 % (0-4); Hematocrit 39.3 % (37.0-47.0); Hemoglobin 12.8 g/dl (12.0-16.0); Imm Gran Abs Auto 0.02 X10*3/uL (0.00-0.03); Imm Gran Pct Auto 0.3 % (0.0-0.4); Lymphocytes Absolute Auto 2.1 X10*3/uL (1.2-4.9); Lymphocytes Percent Auto 28.6 % (20-40); Mean Corpuscular HGB Conc 32.6 g/dl (31.0-35.0); Mean Corpuscular Volume 88.9 fL (80.0-98.0); Mean Platelet Volume 9.2 fL (9.4-12.3); Monocytes Absolute Auto 0.6 X10*3/uL (0.1-1.2); Monocytes Percent Auto 7.6 % (2-11); Neutrophils Absolute Auto 4.2 x10*3/uL (2.0-8.3); Neutrophils Percent Auto 58.1 % (45-73); Platelet Count 196 X10*3/uL (160-400); Red Blood Count 4.42 X10*6/uL (4.20-5.50); Red Cell Distribution Width 11.8 % (11.0-16.0); White Blood Count 7.3 X10*3/uL (4.8-10.8)
[2024-10-13 10:25] LABS: Estimated Average Glucose 151 mg/dL; Hemoglobin A1C 177.0398 umol/L; Hemoglobin A1c % 6.9 % (<6.0); Total Hemoglobin (HGBA1C) 3430.7705 umol/L
[2024-10-13 11:05] LABS: Alanine Aminotransferase 13 U/L (0-31); Albumin Level 4.1 g/dL (3.5-5.0); Alkaline Phosphatase 83 U/L (39-117); Anion Gap 8 (12-20); Aspartate Amino Transferase 18 U/L (5-31); Bilirubin Total 0.5 mg/dL (0.0-1.0); Blood Urea Nitrogen 12 mg/dL (9-16); Calcium 8.6 mg/dL (8.4-10.2); Carbon Dioxide 29 mmol/L (22-29); Chloride 108 mmol/L (96-108); Cholesterol 167 mg/dL (<200); Estimated Glomerular Filt Rate > 60; Glucose Fasting 156 mg/dL (60-99); HDL Cholesterol 52 mg/dL (>40); LDL Cholesterol Calculated 73 mg/dL (<100); Potassium 3.9 mmol/L (3.3-5.1); Sodium 141 mmol/L (135-145); Total Protein 6.8 g/dL (6.5-8.0); Triglycerides 210 mg/dL (<150)
[2024-10-13 11:30] LABS: Creatinine Urine 110.82 mg/dL; Microalbum/Creatinine Ratio Ur 9.9 ug/mg cr (<30)
== END 2024-10-13 07:49 | disposition home or self-care (01) ==
LOC: HO.HMGCLDS 07:48
PROVIDERS: PCP Internal Medicine; Visit Provider Internal Medicine
DX: E11.9 Type 2 diabetes mellitus without complications (principal); E78.5 Hyperlipidemia, unspecified; I10 Essential (primary) hypertension; K51.90 Ulcerative colitis, unspecified, without complications
CPT/HCPCS: 36415; 80053; 80061; 82043; 82570; 83036; 85025

== ENCOUNTER 2024-10-16 08:44 | Outpatient (AMB) | payer MEDICARE, SELFPAY ==
[2024-10-16 08:49] VITALS: BP 124/74; PULSE 98; O2SAT 97; BMI 29.9
--- NOTE | 2024-10-16 08:49 | AM.OFFVISMDC ---
Intake Vital Signs 10/16/24 08:49 Height 5 ft 1 in Weight 158 lb BMI 29.9 BP 124/74 Blood Pressure Location Lt brachial Position Sitting Pulse 98 Pulse Source Pulse Oximeter Pulse Oximetry (%) 97 Oxygen Delivery Method Room Air Intake Visit Reasons: [facility] G0439 Allergies amoxicillin [AMOXICILLIN] Allergy (Intermediate, Verified 10/16/24 08:57) RASH Medication List - Last Reconciled 10/16/24 by Catalina Saldivar MD atenolol 25 mg PO DAILY atorvastatin 20 mg PO DAILY blood sugar diagnostic (DrizlyTouch Ultra Test strips) test glucose once a day blood-glucose meter (Carlypsouch Ultra2 Meter kit) As directed blood-glucose meter (Carlypsouch Ultra2 Meter) As directed lancets (Carlypsouch Delica Plus Lancet) Test daily lancing device with lancets (Cartavi Delica Lancing Device kit) test one a day lisinopril 5 mg PO DAILY metformin ER 1,000 mg (2 x 500 mg) PO DAILY znaaayym-idfcdho-chti-lutein tabs PO sulfasalazine 500 mg PO BID 90 days HPI SWV G0439 HPI Details Initiated the conversation about Advanced Directives. Advanced Directives help? patients prepare for current and future decisions about their medical treatment? and place of care. Discussed with patient that it is a process where a patients? current condition and prognosis are reviewed, their wishes for information? regarding their illness are elicited, and likely medical dilemmas are presented? and options discussed. The form can be amended as needed, reviewed yearly and? make changes as needed IPPE/AWV ? year old presents? for her ? Annual? Wellness Visit, initial visit.? Medical / Social History Reviewed? Past Medical History ?Yes? . ? False Pass? of Care / Care Team list updated ?Yes . ? Surgical/Hospitalization? History ?Yes . ? Current Medications? (including OTC and supplements) ?Yes . ? Family History ?Yes? . ? Tobacco? Control form ?Yes . ? AUDIT-C (Alcohol use) form? ?Yes . ? Illicit drug use in Social? History ?Yes . ? Current diagnosis of? depression? ?No ? Appropriate PHQ2/PHQ9? completed ?Yes . ? Data entered by ?Medical? Blood Bank Technician and reviewed by provider ? Fall Risk ? Fall? History? Have you had any falls with? injury in the past year? ?No . ? Have you had two or more? falls in the past year? ?No . ? Fall Risk Assessment: ?No? falls in the past year . ? HRA filled out by? the patient, reviewed by Provider and scanned. ? IPPE/AWV ? Balance? Romberg? ?Yes . ? Tandem? walk ?Yes . ? Walk and? Turn ?Yes . ? Rise from? sit to stand ?Yes . ?Vision? Corrective? lens ?Yes ? Vision? screen ? Up-to-date, has an appointment [] for vision? screening and glaucoma screening ?Hearing? Whisper? test ?pass .? Initiated the conversation about Advanced Directives. Advanced Directives help? patients prepare for current and future decisions about their medical treatment? and place of care. Discussed with patient that it is a process where a patients? current condition and prognosis are reviewed, their wishes for information? regarding their illness are elicited, and likely medical dilemmas are presented? and options discussed. The form can be amended as needed, reviewed yearly and? make changes as needed Written? Plan?Completed. See Patient? Documents. FOR[facility]LY [facility], [facility] Medical History History of ulcerative colitis History of kidney stones Basal cell carcinoma Foot pain, right Mammogram normal HTN (hypertension) Hyperlipidemia DM type 2 (diabetes mellitus, type 2) Surgical History Hx of hysterectomy Hx of colonoscopy Family History Father Hypertension Heart disease Colon cancer Mother Hypertension Diabetes Heart disease Other Substance use disorder Social History Housing: House Patient Tobacco Use Status: Never used Tobacco e-Cigarette/Vaping Use: Never Used Second Hand Smoke Exposure: Yes Advance Directives Date on File: 09/06/21 service: No Current occupational status: retired Current occupational exposures/hazards: No Cognitive needs: No Hearing needs: No Vision needs: No Questionnaire Medicare Wellness Checkup [age] What gender do you identify with?: female During the past 4 weeks, how much have you been bothered by emotional problems such as feeling anxious, depressed, irritable, sad or downhearted, and blue?: not at all During the past 4 weeks, has your physical & emotional health limited your social activities with family, friends, neighbors, or groups?: not at all During the past 4 weeks, how much bodily pain have you generally had?: no pain During the past 4 weeks, was someone available to help you if you needed & wanted help?: yes, as much as I wanted During the past 4 weeks, what was the hardest physical activity you could do for at least 2 minutes?: heavy Can you get to places out of walking distance without help? (For eg., can you travel alone on buses, taxis or drive your car?): Yes Can you go shopping for groceries or clothes without someone's help?: Yes Can you prepare your own meals?: Yes Can you do your housework without help?: Yes Because of any health problems, do you need the help of another person with your personal care needs such as eating, bathing, dressing or getting around the house?: No Can you handle your own money without help?: Yes During the past 4 weeks, how would you rate your health in general?: very good During the past 4 weeks how have things been going for you?: very well; could hardly better Are you having difficulties driving your car?: no Do you always fasten your seat belt when you are in a car?: yes, usually During past 4 weeks, have you been bothered by the following: never: Falling or dizzy when standing up, Sexual problems?, Trouble eating well?, Teeth or denture problems?, Problems using the telephone? and Tiredness or fatigue? Have you fallen 2 or more times in the past year?: No Are you afraid of falling?: No Are you a smoker?: no During the past 4 weeks, how many drinks of wine, beer, or other alcoholic beverages did you have?: 1 drink or less per week Do you exercise for about 20 minutes 3 or more times a week?: yes, most of the time Have you been given information to help with the following?: no: Hazards in your house that might hurt you? and no: Keeping track of your medications? How often do you have trouble taking medicines the way you have been told to take them?: I always take medicine as prescribed How confident are you that you can control & manage most of your health problems?: very confident What is your race?: White Mini Mental State Exam (MMSE) Orientation What is the (year) (season) (date) (day) (month)?: year, season, date, day and month Where are we (state) (county) (town or city) (hospital) (floor)?: state, county, town or city, hospital/clinic and floor Registration Name of 3 unrelated objects clearly and slowly, then ask patient to repeat all 3 of them. (1st repeat determines score. Make sure they can repeat all three): object 1, object 2 and object 3 Attention & Calculation (CHOOSE ONE) Spell WORLD backwards (DLROW): 5 letters Recall Ask patient to repeat the 3 items from question #3.: object 1, object 2 and object 3 Language Show patient a wristwatch & ask what it is. Repeat for pencil.: watch and pencil Ask the patient to repeat the phrase 'No ifs, ands, or buts' after you.: correct Ask the patient to 'take a piece of paper with their right hand' 'fold paper in half' 'place paper on floor': take paper in right hand, fold paper in half and place paper on floor Print the sentence 'CLOSE YOUR EYES' on a piece. If patient actually closes eyes then score.: followed written direction Give patient a blank piece of paper & ask to write a sentence. Score if it contains a noun & verb.: sentence contains subject and verb Score Score: 29 Activity of Daily Living Bathing - sponge bath, tub bath or shower: receives no assistance (gets in/out by self, if usual bathing means Dressing - getting clothes from closets & drawers, including inner/outer garments & fasteners.: gets clothes & gets completely dressed without help Toileting - going to the 'toilet room' for urine/bowel elimination & cleaning self/arranging clothes: goes to toilet room, cleans self, arranges clothes without help Transfer: moves in & out of bed and chair without help (may use support object) Continence: controls urination/bowel movements completely by self Feeding: feeds self without help Total Score: 0 Information obtained from: patient Using telephone: independent Traveling: independent Shopping: independent Preparing meals: independent Housework: independent Taking medicine: independent Managing money: independent PHQ-9 Over the last 2 weeks, how often have you been bothered by any of the following problems? 1. Little interest or pleasure in doing things: not at all 2. Feeling down, depressed, or hopeless: not at all 3. Trouble falling or staying asleep, or sleeping too much: not at all 4. Feeling tired or having little energy: not at all 5. Poor appetite or overeating: not at all 6. Feeling bad about yourself - or that you are a failure or have let yourself or your family down: not at all 7. Trouble concentrating on things, such as reading the newspaper or watching television: not at all 8. Moving or speaking so slowly that other people could have noticed. Or the opposite - being so fidgety or restless that you have been moving around a lot more than usual: not at all 9. Thoughts that you would be better off or of hurting yourself in some way: not at all Total score: 0 Depression Screening Interpretation: Negative Depression Screening Done: Yes 33168 - PHQ-9 Billing: Yes Source: Developed by Drs. Bernard Damon, Debra Gunn, Nicholas Garcia and colleagues, with an educational ivory from [employer]. Review of Systems Const All systems reviewed & are unremarkable except as noted in HPI and below Eyes Reports no additional complaints ENT Reports no additional complaints Card Reports no additional complaints Resp Reports no additional complaints GI Reports no additional complaints Reports no additional complaints Physical Exam Vital Signs: Last Vital Signs Pulse 98 10/16/24 08:49 BP 124/74 10/16/24 08:49 Pulse Ox 97 10/16/24 08:49 Oxygen Delivery Method Room Air 10/16/24 08:49 BMI result Body Mass Index 29.9 Const General: no acute distress HEENT Head: Yes normal to inspection Ears: hearing grossly normal bilaterally Neck Neck: Yes no lymphadenopathy and Yes supple Thyroid: diffusely enlarged Resp Effort & Inspection: normal respiratory effort Auscultation: clear to auscultation bilaterally Cardio Rhythm: regular rhythm Heart sounds: S1 normal heart sound present and S2 normal heart sound present GI Inspection: Yes normal to inspection Palpation (GI): Soft to palpation Percussion: Yes normal to percussion Auscultation: normal bowel sounds Extrem General: Yes no clubbing, cyanosis or edema Assessment & Plan Assessment & Plan (1) Nephrolithiasis: Comment: History of nephrolithiasis Code(s): N20.0 - Calculus of kidney Plan: Obtain renal ultrasound to follow-up on nephrolithiasis (2) Microscopic hematuria: Code(s): R31.29 - Other microscopic hematuria Plan: Repeat urinalysis (3) Goiter: Code(s): E04.9 - Nontoxic goiter, unspecified Plan: Obtain thyroid ultrasound (4) DM type 2 (diabetes mellitus, type 2): Comment: diarrhea from 1000 mg , cannot afford Jardiance Code(s): E11.9 - Type 2 diabetes mellitus without complications Plan: A1c is down to 6.7 continue metformin ADA diet follow-up in 6 months with a fasting blood work (5) Hyperlipidemia: Code(s): E78.5 - Hyperlipidemia, unspecified Plan: Continue statin (6) HTN (hypertension): Code(s): I10 - Essential (primary) hypertension Plan: Continue lisinopril Orders: Orders US renal BI Today N20.0 - Calculus of kidney, R31.29 - Other microscopic hematuria US thyroid Today E04.9 - Nontoxic goiter, unspecified Complete Blood Count Auto Diff 6 Months E11.9 - Type 2 diabetes mellitus without complications, E78.5 - Hyperlipidemia, unspecified, I10 - Essential (primary) hypertension Lipid Panel 6 Months E11.9 - Type 2 diabetes mellitus without complications, E78.5 - Hyperlipidemia, unspecified, I10 - Essential (primary) hypertension UA w Microscopic Today N20.0 - Calculus of kidney, R31.29 - Other microscopic hematuria Comprehensive [place]. Panel Fast 6 Months E11.9 - Type 2 diabetes mellitus without complications, E78.5 - Hyperlipidemia, unspecified, I10 - Essential (primary) hypertension Hemoglobin A1c 6 Months E11.9 - Type 2 diabetes mellitus without complications, E78.5 - Hyperlipidemia, unspecified, I10 - Essential (primary) hypertension TSH reflex Free T4 6 Months E04.9 - Nontoxic goiter, unspecified Quality Reporting (2019) Depression/Bipolar (159/160/161/177) PHQ-9: Total score: 0 Coding Level of Care Code Medicare Subsequent (G0439) Diagnoses Nephrolithiasis N20.0 Microscopic hematuria R31.29 Goiter E04.9 DM type 2 (diabetes mellitus, type 2) E11.9 Hyperlipidemia E78.5 HTN (hypertension) I10 CPT Codes Advance Care Planning - Advance Care Planning discussion: On file, no changes ([id number]) Advance Care Planning - Time spent: 1-15 minutes, on File ([id number]) Additional Codes PHQ-9 - 18848 - PHQ-9 Billing: Yes ([id number]) Advance Care Planning Advance Care Planning discussion: On file, no changes Forms completed: Health Care Proxy Time spent: 1-15 minutes, on File Did not discuss due to Cultural/Spiritual beliefs: Yes
== END 2024-10-16 09:43 | disposition home or self-care (01) ==
PROVIDERS: PCP Internal Medicine; Visit Provider Internal Medicine
DX: Z00.00 Encounter for general adult medical examination without abnormal findings (principal); E11.69 Type 2 diabetes mellitus with other specified complication; N20.0 Calculus of kidney; R31.29 Other microscopic hematuria; E04.9 Nontoxic goiter, unspecified; E78.5 Hyperlipidemia, unspecified; I10 Essential (primary) hypertension

== ENCOUNTER → 2024-10-16 08:44 | Outpatient (BNVA) | payer MEDICARE, SELFPAY | PROVIDERS: PCP Internal Medicine; Visit Provider Internal Medicine | DX: N20.0 Calculus of kidney (principal); R31.29 Other microscopic hematuria; E04.9 Nontoxic goiter, unspecified; E78.5 Hyperlipidemia, unspecified; I10 Essential (primary) hypertension; E11.9 Type 2 diabetes mellitus without complications | CPT/HCPCS: 96127 ==

== ENCOUNTER 2024-10-27 10:16 | Outpatient (REF) | payer MEDICARE, SELFPAY | END 2024-10-27 10:17 | disposition home or self-care (01) | LOC: HO.HMGCX 10:16 | PROVIDERS: PCP Internal Medicine; Visit Provider Internal Medicine | DX: E04.9 Nontoxic goiter, unspecified (principal); R31.29 Other microscopic hematuria; N20.0 Calculus of kidney | CPT/HCPCS: 76536; 76775 ==

== ENCOUNTER → 2024-10-27 10:29 | Outpatient (BNV) | payer MEDICARE, SELFPAY | PROVIDERS: PCP Internal Medicine; Visit Provider Radiology Diagnostic Radiology | DX: N20.0 Calculus of kidney (principal); E04.9 Nontoxic goiter, unspecified | CPT/HCPCS: 76536; 76775 ==

== ENCOUNTER 2025-01-18 14:00 | Outpatient (AMB) | payer MEDICARE, SELFPAY ==
[2025-01-18 14:37] VITALS: BP 122/70; PULSE 77; TEMP 37.1; O2SAT 98; BMI 29.9
--- NOTE | 2025-01-18 14:37 | AM.OFFWIN_ITS ---
Intake Vital Signs 01/18/25 14:37 Height 5 ft 1 in Weight 158 lb BMI 29.9 BP 122/70 Blood Pressure Location Rt brachial Position Sitting Pulse 77 Pulse Source Pulse Oximeter Temp 98.8 F Temp Source Oral Pulse Oximetry (%) 98 Intake Visit Reasons: EP infection on RT leg? Patient Tobacco Use Status: Never used Tobacco Allergies amoxicillin [AMOXICILLIN] Allergy (Intermediate, Verified 01/18/25 14:38) RASH Do you need a note to return to daycare/school/sports/work: No HPI HPI Comments History of Present Illness Details History of Present Illness - The patient is a 79-year-old female pr esenting with a skin abscess on the right lower extremity. - The abscess began as a minor hard lump over a week ago and progressed to a tender, raised area within the past few days. - The area is surrounded by redness and feels significantly painful to touch, but there is a lack of spontaneous drainage. - The patient has a history of a similar dermatological condition (paronychia) previously managed effectively with lancing and antibiotics, including Doxycycline, with no known MRSA history. - The patient's medical history is notab le for diabetes mellitus, which necessitates careful monitoring of skin infections. Physical Exam General: Cooperative, healthy appearing, comfortable, no acute distress and well developed Orientation: Patient oriented x3 Limitations: No limitations Head: Normal to inspection Ears: Hearing grossly normal bilaterally Nose: Normal external nose present Face and sinus: Normal facial exam Eyes: Appearance normal, both eyes and all related structures Neck: Normal visual inspection and Yes full ROM Respiratory: Normal respiratory effort and able to speak in complete sentences. Clear to auscultation bilaterally Cardiovascular: Regular rate and rhythm. Normal S1 and S2 Skin: Anterior right lower extremity has a 0.75 hardened lump with erythema and tenderness to palpation, no fluctuance noticed Neuro: Patient oriented x3 Extremities: Normal to inspection [facility] Medical History History of ulcerative colitis History of kidney stones Basal cell carcinoma Foot pain, right Mammogram normal HTN (hypertension) Hyperlipidemia DM type 2 (diabetes mellitus, type 2) Surgical History Hx of hysterectomy Hx of colonoscopy Family History Father Hypertension Heart disease Colon cancer Mother Hypertension Diabetes Heart disease Other Substance use disorder Social History Housing: House Patient Tobacco Use Status: Never used Tobacco e-Cigarette/Vaping Use: Never Used Second Hand Smoke Exposure: Yes Advance Directives Date on File: 09/06/21 service: No Current occupational status: retired Current occupational exposures/hazards: No Cognitive needs: No Hearing needs: No Vision needs: No Review of Systems Const All systems reviewed & are unremarkable except as noted in HPI and below Physical Exam Vital Signs: Last Vital Signs Temp 98.8 F 01/18/25 14:37 Pulse 77 01/18/25 14:37 BP 122/70 01/18/25 14:37 Pulse Ox 98 01/18/25 14:37 BMI result Body Mass Index 29.9 Office Procedures I&D Drain Details: sterile prepped area, lanced area but only blood came from the wound, no purulent drainage. [id number]-H[place]bxaoz of Skin Abscess, simple All charges added?: Procedure code (CPT) selection complete Assessment & Plan Assessment & Plan (1) Cellulitis: Code(s): L03.90 - Cellulitis, unspecified Qualifiers: Site of cellulitis: extremity Site of cellulitis of extremity: lower e xtremity Laterality: right Qualified Code(s): L03.115 - Cellulitis of right lower limb Plan: Attempted I&D however only blood was drained, no infection drained, will treat with antibiotics for surrounding cellulitis. The management of the skin abscess involves initiating Cefuroxime to treat the infection. considering the patient's comorbid diabetes mellitus she should maintain tight glucose control to ensure timely healing of wound. The plan includes the application of topical Bacitracin and monitoring for exacerbation of symptoms. The prognosis with this approach is monitored through symptom resolution, with the option of follow-up for re-evaluation if symptoms persist beyond the expected course of therapy. Patient was informed and verbally consented to the use of an ambient scribe for clinic note documentation during this visit. Medications: New cefuroxime axetil 500 mg PO Q12H 14 tabs 0RF Coding Level of Care Code Est Pt Level 4 (95786) Diagnoses Cellulitis of right lower extremity L03.115 Site of cellulitis: extremity Site of cellulitis of extremity: lower extremity Laterality: right CPT Codes I&D Drain - Drain 1: 73759-Nchtesmi of Skin Abscess, simple ([id number])
--- OUTSIDE RECORDS SUMMARY | 2025-01-18 16:02 | XMS_ITS | Data Portability ---
Author Organization [facility] Service Address [address] [place] [address] Assessment No assessment recorded. Plan of Treatment Reminders Order Date Submit Date Provider Last Modified By Organization Details Last Modified Time Details Appointments None recorded. Lab glycohemog lobin, total, blood 2018 019 hrubner Not available 9 08:29:18 lipid panel, blood 2018 019 hrubner Not available 9 08:33:05 CMP, serum or plasma 2018 019 hrubner Not available 9 08:29:17 glycohemog lobin, total, blood 2017 018 [email or web address] Not available 8 07:04:46 glycohemog lobin, total, blood 2017 019 [email or web address] Not available 9 08:45:17 glycohemog lobin, total, blood 2018 019 jvanasse Not available 9 08:41:50 lipid panel, blood 2017 018 tbalicki Not available 8 08:49:13 CMP, serum or plasma 2017 018 [email or web address] Not available 8 07:04:46 CBC 2017 018 [email or web address] Not available 8 07:04:46 lipid panel, blood 2017 019 CHERRY Not available 9 08:08:23 CMP, serum or plasma 2017 019 [email or web address] Not available 9 08:45:17 CMP, serum or plasma 2018 019 jvanasse Not available 9 08:41:50 CBC 2017 018 tbalicki Not available 8 08:24:41 lipid panel, serum 2017 018 tbalicki Not available 8 08:24:41 CMP, serum or plasma 2017 018 tbalicki Not available 8 08:24:41 microalbum in/creatin ine, ratio panel, urine 2017 018 tbalicki Not available 8 08:24:41 glycohemog lobin, total, blood 2017 018 tbalicki Not available 8 08:24:42 TSH + T4, serum 2017 018 tbalicki Not available 8 08:24:42 Referral None recorded. Procedures None recorded. Surgeries None recorded. Imaging None recorded. Medication Orders atorvastat in 20 mg tablet 2018 019 INTERFACE [id number], [address] [place], [address], 9 10:34:32 simvastati n 10 mg tablet 2018 019 INTERFACE [id number], [address] [place], [address], 9 10:04:58 simvastati n 20 mg tablet 2018 019 INTERFACE [id number], [address] [place], [address], 9 10:04:58 Patient TargetsNo targets recorded. Patient Instructions Encounter Date Encounter Id Patient Instructions Last Modified By Organization Details Last Modified Time 07/23/2018 [id number] Continue healthy diet jeffery Not available 07/23/2018 11:27:53 walk regularly jeffery Not available 0 07/23/2018 11:28:12 11/11/2018 [id number] F/U 4 months, sooner prn Discuss healthy dietary choices and portion sizes. Lean protein, less processed foods Review cardiovascular exercise 1/2 hour 5 days week (walk, swim, bike etc), may break up into three 10 minute segments Discuss risks diabetes, associated with sedentary lifestyle jeffery Not available 11/11/2018 10:23:41 jeffery Not available 2017 10:23:00 07/22/2019 [id number] prediabetes: car e instructions Not available 07/22/2019 10:34:30 ulcerative colitis: care instructions Not available 07/22/2019 10:34:30 high blood pressure: care instructions Not available 07/22/2019 10:34:30 learning about high blood pressure [email or web address] Not available 07/22/2019 10:34:30 rheumatoid arthritis diet: care instructions Not available 07/22/2019 10:34:30 Rheumatoid Arthritis (RA): Care Instructions Not available 07/22/2019 10:34:30 Reason for Referral None Reported. Results Created Date Observation Date Name Description Value Unit Range Abnormal Flag Note LastModifiedBy Organization Detail LastModifiedTime 05/30/20 18 MAMMO , scree isaiah, bilat eral No observ ation record ed. [facility] [address] [place] [address], [address], 05/30/2018 13:54:19 06/08/20 19 06/05/2019 MAMMO , scree isaiah, bilat eral No observ ation record ed. [email or web address] [place] [address] (Medical Records) [address] [place] [address], [address], 06/08/2019 13:43:44 04/05/20 22 04/04/2022 MAMMO , estere isaiah, digit al, bilat eral No observ ation record ed. [email or web address] [place] [address] [place], [address], 04/05/2022 10:04:34 Result Notes None recorded. Problems Name Problem SNOMED Code Status Onset Date Resolution Date Notes Provider Name and Address Organization Details Recorded Time Basal cell carcinoma of skin 783001465 Active 2008 Jing Novak NP, S [address] [place], [address], [facility] 8 16:35:23 Basal cell carcinoma of skin 027652217 Active 2008 Jing Novak NP, S [address] [place] [address], [address], [facility] 8 16:35:51 Impaired fasting glycemia 152448148 Active 2017 Jing Novak NP, S [address] [place] [address], [address], [facility] 8 13:01:20 Vitamin D deficiency 10137958 Active 2018 PADMINI ForemanBRENT [address] [place] [address], [address], [facility] 9 10:22:21 Essential hypertensi on 25511419 [facility] 8 15:40:24 Hyperchole sterolemia 82147041 Active 2017 Liya terry [facility] 8 15:40:36 Ulcerative colitis 05530137 [facility] 2017 [facility] 8 15:40:51 Rheumatoid arthritis 78746173 Active 2017 Liya terry [facility] 8 15:40:59 Kidney stone 34407200 Active 2017 [facility] 8 15:41:11 Problem Notes None recorded. Procedures Surgical History Date Name Laterality Status Provider Name and Address Organization Details Recorded Time 03/25/20 13 Colonoscopy completed Jing Novak NP, S [address] [place], [address], [facility] 07/07/2018 16:31:58 Total Hysterectomy completed Jing Novak NP, S [address] [place], [address], [facility] 07/07/2018 16:31:33 Imaging Results Imaging Date Name Status LastModified by Organiz ation Details LastModified Time 05/30/2018 MAMMO, screening, bilateral completed [facility] [address] [place] [address], [address], 05/30/2018 13:54:19 06/05/2019 MAMMO, screening, [email or web address] [place] [address] (Medical Records) [address] [place] [address], [address], 06/08/2019 13:43:44 04/04/2022 MAMMO, screening, digital, bilateral completed [email or web address] [place] [address] [facility] [address] [place] [address] [place], [address], 04/05/2022 10:04:34 Procedure Notes None recorded. Medical Equipment None Reported. Allergies Allergen ID Allergen Name Allergen Category Reaction Reaction Severity Criticality Documentation Date Start Date Code Code System Note Provider Name and Address Organization Details Recorded Time 1425 amoxicill in medicatio n Not available Not available Not available 04/15/2018 723 RxNorm [facility] 8 15:40:15 Medications Name Sig Start Date Stop Date Status Note LastModified by Organization Details LastModified Time atorvastatin 20 mg tablet Take 1 tablet every day by oral route for 90 days. active Not Available Not Available No t Available simvastatin 10 mg tablet Take 1 tablet every day by oral route. active Not Available Not Available No t Available glipizide ER 5 mg tablet, extended release 24 hr 04/16 completed Not Available Not Available Not Available atenolol 25 mg tablet 11/11 completed Not Available Not Available Not Available simvastatin 40 mg tablet Take 1 tablet every day by oral route. 03/11 completed Not Available Not Available Not Available simvastatin 20 mg tablet Take 1 tablet every day by oral route. active Not Available Not Available No t Available lisinopril 5 mg tablet TAKE 1 TABLET BY MOUTH EVERY DAY 2018 active Not Available Not Available Not Avai lable atenolol 50 mg tablet TAKE 1/2 TABLET BY MOUTH DAILY active Not Available Not Available No t Available Vitamin D3 25 mcg (1,000 unit) capsule Take 1 capsule every day by oral route. active Not Available Not Available No t Available mesalamine 1.2 gram tablet,delay ed release 11/11 completed Not Available Not Available Not Available Vitals Date Recorded Body height Body mass index (BMI) Body weight Heart rate Oxygen saturation Oxygen saturation in Arterial blood by Pulse oximetry Systolic blood pressure Diastolic blood pressure Provider Name and Address Organization Details Last Updated DateTime 8 156.21 cm 30.1 kg/m2 34376.2 5 g 52 /min 96 % 96 % 124 mm[Hg] 72 mm[Hg] Liya Rosario [facility] 8 10:08:50 Date Recorded Body height Body mass index (BMI) Body weight Heart rate Oxygen saturation Oxygen saturation in Arterial blood by Pulse oximetry Systolic blood pressure Diastolic blood pressure Provider Name and Address Organization Details Last Updated DateTime 8 156.21 cm 30.9 kg/m2 88485.3 3 g 61 /min 96 % 96 % 126 mm[Hg] 76 mm[Hg] Liya Rosario [facility] 8 09:43:47 Date Recorded Body height Body mass index (BMI) Body weight Heart rate Oxygen saturation Oxygen saturation in Arterial blood by Pulse oximetry Systolic blood pressure Diastolic blood pressure Provider Name and Address Organization Details Last Updated DateTime 9 156.21 cm 31.2 kg/m2 06297.0 8 g 60 /min 98 % 98 % 128 mm[Hg] 80 mm[Hg] Kanchan Florez [facility] 9 09:53:07 Date Recorded Body weight Body mass index (BMI) Body height Heart rate Oxygen saturation Oxygen saturation in Arterial blood by Pulse oximetry Systolic blood pressure Diastolic blood pressure Provider Name and Address Organization Details Last Updated DateTime 8 69631.7 6 g 30.2 kg/m2 156.21 cm 56 /min 96 % 96 % 132 mm[Hg] 76 mm[Hg] Liya Bowenisabel [facility] 8 09:45:36 Date Recorded Systolic blood pressure Diastolic blood pressure Provider Name and Address Organization Details Last Updated DateTime 04/16/2018 128 mm[Hg] 70 mm[Hg] Jing Novak NP, S [address] [place], [address], [facility] 04/16/2018 10:03:07 Date Recorded Body height Body mass index (BMI) Body weight Heart rate Oxygen saturation Oxygen saturation in Arterial blood by Pulse oximetry Systolic blood pressure Diastolic blood pressure Provider Name and Address Organization Details Last Updated DateTime 9 156.21 cm 31.5 kg/m2 69205.5 5 g 60 /min 96 % 96 % 138 mm[Hg] 72 mm[Hg] Kanchan Florez [facility] 9 10:14:48 Social History Question Answer Notes LastModified by [employer] ion Details LastModified Time Tobacco Smoking Status Never Smoker Not Available [facility] 09/27/2020 03:36:24 What Was The Date Of Your Most Recent Tobacco Screening? 03/11/2019 [id number] Information not available 09/27/2020 Sex: Unknown Functional Status None recorded. Mental Status None recorded. Family History Nothing Reported. Medical History Condition Response Coronary Artery Disease N Other N Gout N Blood Diseases N Kidney Stones N Blood Transfusion N Breast Cancer N Depression N COPD N Lung Disease N Defects or Inherited Disease N Anxiety Disorder N Muscle, Joint, or Bone Problems N Obesity N Vision or Eye Problems N Arthritis N Polyps N Infertility N Mental Disorder N Cancer N Varicosities N Stroke N Endometriosis N Bladder or Kidney Problems N High Cholesterol N Liver Disease N Fibromyalgia N Headaches N Kidney Disease N Allergies/Hayfever N Heart Problems N Hospitalizations N Thyroid Problems N GI Problems N Skin Problems N Eating Disorder N Anemia N MRSA exposure N Constipation N Mental Illness N Ovarian Cancer N Diabetes N Seizures/Epilepsy N Tuberculosis N Congestive Heart Failure (CHF) N Eczema N Diverticulitis N Abuse/Domestic Violence N Asthma N Reflux/GERD N Hepatitis N Heart Disease N Pulmonary Embolism N Hypertension N Osteoporosis N Chicken Pox N Autism Spectrum Disorder (ASD) N Gynecological HistoryNo gynecological history recorded. Obstetrics History GPAL:G 0 P 0 0 0 0 Immunizations Vaccine Type Date Status Note Provider Nam e and Address Organization Details Recorded Time Influenza, split virus, quadrivalent, preservative 07/25/20 18 completed Jing Novka NP, S [address] [place], [address], [facility] 11/11/2018 09:58:00 Pneumococcal conjugate PCV 13 12/25/19 18 [facility] 11/11/2018 09:44:33 pneumococcal polysaccharide PPV23 01/20/20 19 completed February YEVGENIY Foreman [address] [place], [address], [facility] 07/22/2019 10:32:40 Influenza, split virus, quadrivalent, preservative 07/30/20 19 [facility] 08/05/2019 08:08:04 Td (adult) 07/26/20 14 completed Jing Novak NP, S [address] [place] [address], [address], [facility] 07/07/2018 16:33:47 Past Encounters Encounter ID Performer Location Encounter Start Date Encounter Closed Date Diagnosis/Indication Diagnosis SNOMED-CT Code Diagnosis ICD10 Code Diagnosis Note [id number] Jing Novak NP, S [facility] [address] [place] [address],[place] [address] 04/16/2018 09:37:41 04/16/2018 12:55:31 Essential hypertension 84546290 I10 stable Pre-existi ng type 2 diabetes mellitus 797120988 E11.9 try to check home blood sugars Ulcerative colitis 10867 004 K51.90 trialing off Lialda r/t expense Hypercholesterolemia 136 38489 E78.00 recheck labs prior to next visit Rheumatoid arthritis 698 02423 M06.9 asymptomat ic [id number] Jing Novak NP, S [facility] [address] [place] [address],[place] [address] 07/23/2018 09:39:16 07/23/2018 17:12:10 Essential hypertension 93930724 I10 stable Hypercholesterolemia 136 29738 E78.00 follow ldl 121, on simvastati n Impaired f asting glycemia 877798402 R73.01 A1C 6.3 Ulcerative colitis 08346 004 K51.90 trialing off Lialda r/t expense Rheumatoid arthritis 698 [address] M06.[place] [id number] Jing Novak NP, S [facility] [address] [facility], [place] [address] 11/11/2018 09:33:44 11/14/2018 11:17:40 Impaired fasting glycemia 027480672 R73.01 A1C 6.3 Hypercholesterolemia 136 16821 E78.00 RR > 3.5 Essential hypertension 40094704 I10 stable Ulcerative colitis 43791 004 K51.90 trialing off Lialda r/t expense Rheumatoid arthritis 698 01981 M06.9 asymptomat ic- no meds [id number] Jing Novak NP, S [facility] [address] [facility], [place] [address] 03/11/2019 09:40:22 03/11/2019 16:41:57 Hypercholesterolemia 98695353 E78.00 to try 30 mg Impaired f asting glycemia 343155198 R73.01 A1C 6.8, discussed Essential hypertension 74579442 I10 stable Ulcerative colitis 49219 004 K51.90 remains off Lialda r/t expense Rheumatoid arthritis 698 04925 M06.9 asymptomat ic- no meds [id number] February YEVGENIY Foreman [facility] [address] [facility], [place] [address] 07/22/2019 10:01:31 07/22/2019 10:57:47 Hypercholesterolemia 05608838 E78.00 pt reluctant to go up to 40 mg of simvastati n, will change to atorvastat in 20 mg wants to finish off the simvastati n 30 mg qd Impaired f asting glycemia 855810954 R73.01 stable at 6.8 Essential hypertension 08357524 I10 stable Ulcerative colitis 54138 004 K51.90 in remission Rheumatoid arthritis 698 60417 M06.9 quiet Health Concerns Section Related Observation LastModified by Organization Detai LastModified Time None Recorded Concern Status LastModified by Organization Details LastModified Time None Recorded Advance Directives Directive None Recorded Payers Encounter Date Sequence Insurance Name Policy Number Policy Girard Covered Member ID Girard Member ID Guarantor Name 04/16/2018 2 [place] [id number] Susan Mars [place] [id number] Susan Mars [place] 04/16/2018 1 [place] Susan Mars Flynn[place] [id number] Susan Mars [place] 07/23/2018 2 [place] [id number] Susan Mars FlynnKerry [id number] Susan Mars [place] 07/23/2018 1 [place] Susan Mars [place] [id number] Susan Mars [place] 11/11/2018 2 [place] [id number] Susan Mars [place] [id number] Susan Mars [place] 11/11/2018 1 [place] Susan Mars [place] [id number] Susan Mars [place] 03/11/2019 2 [place] [id number] Susan Mars FlynnKerry [id number] Susan Mars [place] 03/11/2019 1 [place] Susan Mars [place] [id number] Susan Mars [place] 07/22/2019 2 [place] [id number] Susan Mars [place] [id number] Susan Mars [place] 07/22/2019 1 [place] Susan Mars [place] [id number] Susan Mars [place] Notes Date Note Type Note Provider Name a nd Address Organization Details Recorded Time 04/16/2018 text/html Feels well Tryin g to wean off Lialda, drinking lucia water and taking tumeric, follows with Dr. 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 Feels good Has been careful with diet, rare red meat, limits carbohydrates continues to be off lialda, no recent ulcerative colitis flares Joints feel good Not walking as much 2nd heat, but plans to increase Jing Novak NP, S [address] [place], [address], [facility] 07/23/2018 11:30:57 11/11/2018 text/html Routine appt Fee ls well, no concerns Maintains self off RA and Crohns medications Walks dogs daily without difficulty Jing Novak NP, S [address] [place], [address], [facility] 11/11/2018 10:23:57 03/11/2019 text/html Routine appt di d not change simvastatin to 40 mg, worried about myalgias Has colonoscopy scheduled this summer w/ Dr. Shaffer remains off lialda feels well Jing Novak NP, S [address] [place], [address], [facility] 03/11/2019 11:18:04 07/22/2019 text/html cholesterol - simvastatin was increased ifg - has had steroid induced diabetes in the past, now just diet and exercise controlled bp - no sx UC/RA - in remission 12 system ROS negative except where noted above- denies: chest pain, palpitations, sob, ankle swelling, visual problems, hearing problems, muscle aches or pains, numbness or tingling extremities, abdominal pain, bowel issues, bladder issues, sexual dysfunction, abnormal bleeding, sx of sinus/respiratory infection , headaches, dizziness/lighthea dedness, rashes, or nail changes. YEVGENIY Ellington [address] [place], [address], [facility] 07/22/2019 10:36:32 OBGyn Episode No OBEpisode recorded.
--- OUTSIDE RECORDS SUMMARY | 2025-01-18 16:02 | XMS_ITS | Patient Health Record ---
Author Organization [facility] Address [address] [place] [address] Care Team Providers Care Central Supply Technician Supervisor Name Role Phone Catalina Saldivar MD Primary Care Provider Qi Leyva Unavailable [phone] Allergies Allergen (clinical drug ingredient) Drug/Non Drug Allergy documented on EMR Reaction Allergy Type Onset Date Status amoxicillin Amoxicillin rash,hives Drug Allergy Ac tive Reason For Referral No Information Medications Medication SIG (Take, Route, Frequency, Duration) Notes Start Date End Date Status Atorvastatin Calcium 20 MG 1 tablet Oral ly Once a day for 30 day(s) Active Atenolol 25 MG 1 tablet Orally Once a day for 30 day(s) Active Lisinopril 5 MG 1 tablet Orally Once a day for 30 day(s) Active Turmeric Curcumin 500 MG as directed Orally Active metFORMIN HCl 500 MG as directed Orally three times a day Active Neurontin 300 MG 1 capsule Orally Onc e a day at night for 90 days Active Vitamin D3 Active Immunizations Vaccine Route Administration Date Status Comme nts COVID-19 Pfizer BioNTech Vaccine Unknown 10/06/2021 Administered First Dose:02/21/2021 Second Dose: 03/15/2021 Influenza Unknown 08/07/2021 Administered Social History Tobacco Use: Social History Observation Description Date Details (start date - stop date) Never Smoker NA - NA Tobacco Use/Smoking Question Answer Notes Are you a: nonsmoker Alcohol Screen Question Answer Notes Did you have a drink containing alcohol in the p ast year? No Points 0 Interpretation Negative Tobacco use other than smoking: Question Answer Notes Are you an other tobacco user? 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 Plan Of Treatment Pending Test Test Name Order Date X ray : Foot, right 3V 08/11/2021 Insurance Providers Payer Name Payer Address Payer Phone Subscriber Number Group Number Insured Name Patient Relationship to Insured Coverage Start Date Coverage End Date Medicare National Govt Sv[employer] [address] [place] [address] [id number] Susan Payne Self - patient is the insured [employer] [address] [place] [address] [id number] Susan Payne Self - patient is the insured Medical (General) History Medical History History ICD Code Skin cancer Crohns disease type II diabetes High blood pressure Colitis Chicken pox Surgical History Surgery Date(Month/Year) hysterectomy wisdom teeth extraction colonoscopy
== END 2025-01-18 15:04 | disposition home or self-care (01) ==
PROVIDERS: PCP Internal Medicine; Visit Provider Physician Assistant
DX: L03.115 Cellulitis of right lower limb (principal)

== ENCOUNTER → 2025-01-18 14:00 | Outpatient (BNVA) | payer MEDICARE, SELFPAY | PROVIDERS: PCP Internal Medicine | DX: L03.115 Cellulitis of right lower limb (principal) | CPT/HCPCS: 10060; 99212 ==

== ENCOUNTER 2025-02-15 09:59 | Outpatient (AMB) | payer MEDICARE, SELFPAY ==
--- NOTE | 2025-02-15 10:03 | A.OFFVIS_ITS ---
Vital Signs 02/15/25 10:05 Height 5 ft 1 in Weight 159 lb 9.835 oz BMI 30.2 BP 130/70 Blood Pressure Location Lt brachial Position Sitting Pulse 61 Pulse Source Pulse Oximeter Pulse Oximetry (%) 97 Oxygen Delivery Method Room Air Intake Visit Reasons: Nontoxic single thyroid nodule Intake Note: New patient present today for Nontoxic single thyroid nodule office visit Accompanied by: Self / Same As Patient Allergies amoxicillin [AMOXICILLIN] Allergy (Intermediate, Verified 02/15/25 10:04) RASH Medication List - Last Reconciled 02/15/25 by Tamela Herman MD atenolol 25 mg PO DAILY atorvastatin 20 mg PO DAILY blood sugar diagnostic ([employer]ermenSysuch Ultra Test strips) test glucose once a day blood-glucose meter (Se[employer]-FermenSysuch Ultra2 Meter kit) As directed blood-glucose meter (Seadev-FermenSysuch Ultra2 Meter) As directed cholecalciferol (vitamin D3) 25 mcg PO DAILY lancets ([employer] Delica Plus Lancet) Test daily lancing device with lancets ([employer] 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 Went for annual physical, PCP palpated the nodules. Ultrasound of the thyroid from 10/27/2024, I reviewed the images myself showed a large right mid lobe 4.3 cm, solid, isoechoic, nodule with possible extrathyroidal extension making it a TR 4 category nodule. Another dominant left inferior 1.8 cm solid, isoechoic, taller than wide nodule noted also with possible extrathyroidal extension and macrocalcifications, making this is a TR 5 category nodule. Both of these meet criteria for FNA. No prior history of thyroid problems. Patient currently denies heat or cold intolerance, , palpitation, anxiety, weight changes, mood changes, low energy, changes in appearance of eyes or vision changes, tremors, increased diaphoresis or dry skin. ?Bowel movements vriable as she has ulcerative colitis. Feels hair is thinning. Patient denies any difficulty swallowing, pain on swallowing or difficulty breathing. Intermittent hoarseness. Patient denies any history of childhood neck radiation. Denies having ever used lithium, amiodarone or biotin supplements. Patient denies any family history of thyroid cancer or thyroid disease. Physical exam General: sitting comfortably in no acute distress HEENT: normocephalic/atraumatic Neck: supple, palpable 3 cm right-sided nodule, palpable 1 cm left-sided nodule Cardiac: normal heart sounds Pulm: normal breath sounds B/L, no added breath sounds Abd: not distended Extremities: no edema, no signs of myxedema Laboratory Tests 04/03/24 07:42 TSH 1.62 US THYROID 10/27/24 CLINICAL INFORMATION: Nontoxic goiter, unspecified. COMPARISON: None available. TECHNIQUE: Linear transducer grayscale and color Doppler examination with attention to the region of the thyroid. FINDINGS: Submitted for interpretation on December 09, 2024. SIZE: Measurements of the thyroid lobes and nodules are given in sagittal, anteroposterior and transverse dimensions respectively. Right Thyroid Lobe: 5.8 x 3.0 x 3.5 cm, volume 31.9 mL. Parenchyma: The gland echotexture is homogeneous. Thyroid vascularity is increased. Left Thyroid Lobe: 5.5 x 1.7 x 1.5 cm, volume 7.3 mL. Parenchyma: The gland echotexture is heterogeneous. Thyroid vascularity is normal. Isthmus: 0.6 cm in maximum AP dimension. Estimated total number of nodules greater than or equal to 1 cm: 3. Marine Scientist nodules are described as follows: 1. Location: Right mid. Size: 4.3 x 3.3 x 3.7 cm, volume 27.4 mL. Nodule characteristics: Composition: Solid (2). Echogenicity: Isoechoic (1). Shape: Not taller than wide (0). Margins: Extrathyroidal extension (3). Echogenic Foci: None (0). ACR TI-RADS total points: 6 ACR TI-RADS category: 4 2. Location: Right medial inferior. Size: 1.0 x 0.8 x 1.2 cm, volume 0.50 mL. Nodule characteristics: Composition: Solid (2). Echogenicity: Hypoechoic (2). Shape: Not taller than wide (0). Margins: Smooth (0). Echogenic Foci: None (0). ACR TI-RADS total points: 4 ACR TI-RADS category: 4 3. Location: Left inferior. Size: 1.8 x 1.7 x 1.6 cm, volume 2.42 mL. Nodule characteristics: Composition: Solid (2). Echogenicity: Cannot be determined (1). Shape: Taller than wide (3). Margins: Extrathyroidal extension (3). Echogenic Foci: Macrocalcifications (1). ACR TI-RADS total points: 10 ACR TI-RADS category: 5 NODES: No lymphadenopathy is seen in the tissue surrounding the thyroid gland. US/US thyroid IMPRESSION: TI-RADS 4 on the dominant nodule, right thyroid lobe.. TI-RADS 5 on the dominant nodule, left thyroid lobe. [facility] Medical History Squamous cell carcinoma of left lower leg History of ulcerative colitis History of kidney stones Basal cell carcinoma Foot pain, right Mammogram normal HTN (hypertension) Hyperlipidemia DM type 2 (diabetes mellitus, type 2) Surgical History Hx of hysterectomy Hx of colonoscopy Family History Father Hypertension Heart disease Colon cancer Mother Hypertension Diabetes Heart disease Other Substance use disorder Social History Housing: House Patient Tobacco Use Status: Never used Tobacco e-Cigarette/Vaping Use: Never Used Second Hand Smoke Exposure: Yes Advance Directives Date on File: 09/06/21 service: No Current occupational status: retired Current occupational exposures/hazards: No Cognitive needs: No Hearing needs: No Vision needs: No Physical Exam Vital Signs: Last Vital Signs Pulse 61 02/15/25 10:05 BP 130/70 02/15/25 10:05 Pulse Ox 97 02/15/25 10:05 Oxygen Delivery Method Room Air 02/15/25 10:05 BMI result Body Mass Index 30.2 Assessment & Plan Assessment & Plan (1) Multinodular goiter: Code(s): E04.2 - Nontoxic multinodular goiter Category: Medical Plan: 79-year-old female with no family history of thyroid cancer, with no personal history of head or neck radiation, coming in today for initial evaluation nontoxic multinodular goiter. Ultrasound of the thyroid from 10/27/2024, I reviewed the images myself showed a large right mid lobe 4.3 cm, solid, isoechoic, nodule with possible extrathyroidal extension making it a TR 4 category nodule. Another dominant left inferior 1.8 cm solid, isoechoic, taller than wide nodule noted also with possible extrathyroidal extension and macrocalcifications, making this is a TR 5 category nodule. Both of these meet criteria for FNA. No recent TFTs. She does not have any major compressive symptoms, just intermittent hoarseness. I explained that it is common to have thyroid nodules. About 95% of the time these nodules are benign. However if the nodule is > 1 cm in size or suspicious on ultrasound then a fine need aspiration biopsy is recommended. We discussed that a FNAB involves 4-5 passes with a small gauge needle and material obtained is sent off for cytology.If the cytopathology is benign then the nodule will be followed annually with repeat ultrasounds. However if it is suspicious or malignant, we will need to discuss further management. Indeterminate cytology can be further investigated with repeat FNA, genetic testing or empiric lob ectomy. Malignant cytology is managed with either lobectomy or total thyroidectomy. We discussed briefly that thyroid cancer is, in most patients, an indolent disease that does not affect mortality. We will arrange for FNA of the right mid 4.3 cm and the left inferior 1.8 cm thyroid nodules at next available opening and patient will follow up with me in clinic thereafter for results and further decision making. Plan: -scheduled for FNA of the right mid 4.3 cm and the left inferior 1.8 cm thyroid nodules and a follow up 2 weeks after discuss results -ordered TSH with reflex free T4 to be done now Plan I spent 45 minutes in reviewing the record, seeing the patient and documenting in the medical record. Orders: Orders TSH reflex Free T4 Today E04.2 - Nontoxic multinodular goiter US biopsy thyroid Today E04.2 - Nontoxic multinodular goiter Patient Instructions: Do Blood work today We will schedule you for biopsies of your right and left-sided thyroid nodules and a follow up 2 weeks after to discuss results Coding Level of Care Code New Pt Level 4 (13170) Diagnoses Multinodular goiter E04.2 Time Spent (min) 45
[2025-02-15 10:05] VITALS: BP 130/70; PULSE 61; O2SAT 97; BMI 30.2
== END 2025-02-15 11:11 | disposition home or self-care (01) ==
LOC: HO.ENCR 10:00
PROVIDERS: PCP Internal Medicine; Visit Provider Student in an Organized Health Care Education/Training Program
DX: E04.2 Nontoxic multinodular goiter (principal)
CPT/HCPCS: 99204

== ENCOUNTER 2025-02-15 09:59 | Outpatient (REF) | payer MEDICARE, SELFPAY ==
[2025-02-15 12:46] LABS: TSH reflex Free T4 2.05 uIU/mL (0.32-4.0)
== END 2025-02-15 10:00 | disposition home or self-care (01) ==
LOC: HO.LAB 09:59
PROVIDERS: PCP Internal Medicine; Visit Provider Student in an Organized Health Care Education/Training Program
DX: E04.2 Nontoxic multinodular goiter (principal)
CPT/HCPCS: 36415; 84443; 99202

== ENCOUNTER 2025-03-24 09:47 | Outpatient (REF) | payer MEDICARE, SELFPAY ==
--- OUTSIDE RECORDS SUMMARY | 2025-03-24 10:37 | XMS_ITS | Patient Health Record ---
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 Name Role Phone Catalina Saldivar MD Primary Care Provider Qi Leyva Unavailable [phone] Allergies Allergen (clinical drug ingredient) Drug/Non Drug [...] Problem Status W/U Status Risk Notes Problem 361296121 Neuropathy (G62.9) Active confirmed Problem [id number] Type 2 diabetes mellitus with polyneuropathy (E11.42) Active confirmed Problem [id number] Osteoarthritis o f right ankle and foot (M19.071) Active confirmed Plan Of Treatment Pending Test Test Name Order Date X ray : Foot, right 3V 08/11/2021 Insurance Providers Payer Name Payer Address Payer Phone Subscriber Number Group Number Insured Name Patient Relationship to Insured Coverage Start Date Coverage End Date Medicare National [employer] [address] [place] [address] [id number] Susan Payne Self - patient is the insured [employer] [address] [place] [address] [id number] Susan Payne Self - patient is the insured Medical (General) History Medical History History ICD Code Skin cancer Crohns disease type II diabetes High blood pressure Colitis Chicken pox Surgical History Surgery Date(Month/Year) hysterectomy wisdom teeth extraction colonoscopy
--- NOTE | 2025-03-24 10:46 | PM.PROC ---
Brief Operative Note Date of procedure: 03/24/25 Pre-op diagnosis: right mid 4.3 cm and left lower pole 1.8 cm thyroid nodule FNA biopsy Post-op diagnosis: same Procedure: THYROID FINE NEEDLE ASPIRATION PROCEDURE NOTE ? PROCEDURE PERFORMED: Ultrasound-guided FNA of thyroid nodule ? OPERATORS: Dr. Tamela Herman ? INDICATION: right mid 4.3 cm and left lower pole 1.8 cm thyroid nodules; FNA performed to assess for malignancy ? DESCRIPTION OF PROCEDURE: The indications for FNA (to assess for malignancy) were reviewed with the patient in detail. Potential complications (e.g., bleeding, infection, damage to local structures, absence of clear diagnosis after FNA) were reviewed. Alternatives to FNA including conservative observation or surgery were described. The patient understood and agreed to proceed. This was documented by the signing of the written informed consent form. A time-out was performed to confirm the patient's identity and the site of planned FNA. The nodules of interest were identified using ultrasound (14 MHz linear array probe). The sites of FNA was then draped in the usual fashion and carefully cleaned and prepared using alcohol swabs. The skin at the previously-identified sites of needle insertion was iced and sprayed with numbing spray. First for the right mid pole 4.3 cm nodule , Under ultrasound guidance, _4_ passes were performed using a 1.5-inch, 25-gauge needle, and sample was obtained via capillary action. The needle tip was clearly visualized to be within the nodule at the time of sampling for _4 of 4__ passes. Then for the left lower pole 1.8 cm nodule, Under ultrasound guidance, _5_ passes were performed using a 1.5-inch, 25-gauge needle, and sample was obtained via capillary action. The needle tip was clearly visualized to be within the nodule at the time of sampling for _3 of 5__ passes. The patient tolerated the procedure well. There were no immediate complications. A small adhesive bandage was applied, and the patient was advised to take acetaminophen (rather than NSAIDs) for any discomfort and to report any signs of inflammation/infection or marked swelling. IMPRESSION: Technically successful ultrasound-guided fine needle aspiration of right mid 4.3 cm and left lower pole 1.8 cm thyroid nodules . PLAN: The patient was advised that I will provide follow-up regarding the cytology result and any subsequent plans. Tamela Herman MD Endocrinology Attending Condition: stable Disposition: same day
== END 2025-03-24 09:48 | disposition home or self-care (01) ==
LOC: HO.US 09:47
PROVIDERS: PCP Internal Medicine; Visit Provider Student in an Organized Health Care Education/Training Program
DX: E04.2 Nontoxic multinodular goiter (principal)
CPT/HCPCS: 10005; 10006; 88173; 88305

== ENCOUNTER → 2025-03-24 09:47 | Outpatient (BNV) | payer MEDICARE, SELFPAY | PROVIDERS: PCP Internal Medicine; Visit Provider Student in an Organized Health Care Education/Training Program | DX: E04.2 Nontoxic multinodular goiter (principal) | CPT/HCPCS: 10005; 10006 ==

== ENCOUNTER 2025-04-09 07:52 | Outpatient (REF) | payer MEDICARE, SELFPAY ==
--- OUTSIDE RECORDS SUMMARY | 2025-04-09 07:57 | XMS_ITS | Data Portability ---
Author Organization [facility] Address [address] [place] [address] Assessment No assessment recorded. Plan of Treatment [...] tablet 2018 019 INTERFACE [id number], [address] [place], [address], 9 10:34:32 simvastati n 10 mg tablet 2018 019 INTERFACE [id number], [address] [place], [address], 9 10:04:58 simvastati n 20 mg tablet 2018 019 INTERFACE [id number], [address] [place], [address], 9 10:04:58 Patient TargetsNo targets recorded. Patient Instructions Encounter Date Encounter Id Patient Instructions Last Modified By Organization Details Last Modified Time 07/23/2018 [id number] Continue healthy diet jeffery Not available 07/23/2018 11:27:53 walk regularly jeffery Not available 0 07/23/2018 11:28:12 11/11/2018 [id number] F/U 4 months, sooner prn Discuss healthy dietary choices and portion sizes. Lean protein, less processed foods Review cardiovascular exercise 1/2 hour 5 days week (walk, swim, bike etc), may break up into three 10 minute segments Discuss risks diabetes, associated with sedentary lifestyle jeffery Not available 11/11/2018 10:23:41 jeffery Not available 2017 10:23:00 07/22/2019 [id number] prediabetes: car e instructions Not available 07/22/2019 [...] bilat eral No observ ation record ed. [facility] [address] [place] [address], [address], 05/30/2018 13:54:19 06/08/20 19 06/05/2019 MAMMO , scree isaiah, bilat eral No observ ation record ed. [email or web address] [place] [address] (Medical Records) [address] [place] [address], [address], 06/08/2019 13:43:44 04/05/20 22 04/04/2022 MAMMO , estere isaiah, digit al, bilat eral No observ ation record ed. [email or web address] [place] [address] [place], [address], 04/05/2022 10:04:34 Result Notes None recorded. Problems Name Problem SNOMED Code Status Onset Date Resolution Date Notes Provider Name and Address Organization Details Recorded Time Basal cell carcinoma of skin 714838879 Active 2008 Jing Novak NP, S [address] [place], [address], [facility] 8 16:35:23 Basal cell carcinoma of skin 796212166 Active 2008 Jing Novak NP, S [address] [place] [address], [address], [facility] 8 16:35:51 Impaired fasting glycemia 693128742 Active 2017 Jing Novak NP, S [address] [place] [address], [address], [facility] 8 13:01:20 Vitamin D deficiency 05929374 Active 2018 PADMINI ForemanBRENT [address] [place] [address], [address], [facility] 9 10:22:21 Essential hypertensi on 05157704 [facility] 2017 [facility] 8 15:40:24 Hyperchole sterolemia 58213491 Active 2017 Liya terry [facility] 8 15:40:36 Ulcerative colitis 90529137 Active 2017 [facility] 8 15:40:51 Rheumatoid arthritis 01698675 Active 2017 Liya terry [facility] 8 15:40:59 Kidney stone 79584667 Active 2017 [facility] 8 15:41:11 Problem Notes None recorded. Procedures Surgical History Date Name Laterality Status Provider Name and Address Organization Details Recorded Time 03/25/20 13 Colonoscopy completed Jing Novak NP, S [address] [place], [address], [facility] 07/07/2018 16:31:58 Total Hysterectomy completed Jing Novak NP, S [address] [place], [address], [facility] 07/07/2018 16:31:33 Imaging Results Imaging Date Name Status LastModified by Organiz ation Details LastModified Time 05/30/2018 MAMMO, screening, bilateral completed [facility] [address] [place] [address], [address], 05/30/2018 13:54:19 06/05/2019 MAMMO, screening, [email or web address] [place] [address] (Medical Records) [address] [place] [address], [address], 06/08/2019 13:43:44 04/04/2022 MAMMO, screening, digital, bilateral completed [email or web address] [place] [address] [facility] [address] [place] [address] [place], [address], 04/05/2022 10:04:34 Procedure Notes None recorded. Medical Equipment None Reported. Allergies Allergen ID Allergen Name Allergen Category Reaction Reaction Severity Criticality Documentation Date Start Date Code Code System Note Provider Name and Address Organization Details Recorded Time 1425 amoxicill in medicatio n Not available Not available Not available 04/15/2018 723 Rx[facility] 8 15:40:15 Medications Name Sig Start Date [...] Updated DateTime 8 156.21 cm 30.1 kg/m2 46994.2 5 g 52 /min 96 % 96 % 124 mm[Hg] 72 mm[Hg] Liya Rosario [facility] 8 10:08:50 Date Recorded Body height Body mass index (BMI) Body weight Heart rate Oxygen saturation Oxygen saturation in Arterial blood by Pulse oximetry Systolic blood pressure Diastolic blood pressure Provider Name and Address Organization Details Last Updated DateTime 8 156.21 cm 30.9 kg/m2 79793.3 3 g 61 /min 96 % 96 % 126 mm[Hg] 76 mm[Hg] Liya Rosario [facility] 8 09:43:47 Date Recorded Body height Body mass index (BMI) Body weight Heart rate Oxygen saturation Oxygen saturation in Arterial blood by Pulse oximetry Systolic blood pressure Diastolic blood pressure Provider Name and Address Organization Details Last Updated DateTime 9 156.21 cm 31.2 kg/m2 07881.0 8 g 60 /min 98 % 98 % 128 mm[Hg] 80 mm[Hg] Kanchan Florez [facility] 9 09:53:07 Date Recorded Body weight Body mass index (BMI) Body height Heart rate Oxygen saturation Oxygen saturation in Arterial blood by Pulse oximetry Systolic blood pressure Diastolic blood pressure Provider Name and Address Organization Details Last Updated DateTime 8 57172.7 6 g 30.2 kg/m2 156.21 cm 56 /min 96 % 96 % 132 mm[Hg] 76 mm[Hg] Liya Bowenisabel [facility] 8 09:45:36 Date Recorded Systolic blood pressure Diastolic blood pressure Provider Name and Address Organization Details Last Updated DateTime 04/16/2018 128 mm[Hg] 70 mm[Hg] Jing Novak NP, S [address] [place], [address], [facility] 04/16/2018 10:03:07 Date Recorded Body height Body mass index (BMI) Body weight Heart rate Oxygen saturation Oxygen saturation in Arterial blood by Pulse oximetry Systolic blood pressure Diastolic blood pressure Provider Name and Address Organization Details Last Updated DateTime 9 156.21 cm 31.5 kg/m2 23719.5 5 g 60 /min 96 % 96 % 138 mm[Hg] 72 mm[Hg] Kanchan Florez [facility] 9 10:14:48 Social History Question Answer Notes LastModified by Flash Valetat ion Details LastModified Time Tobacco Smoking Status Never Smoker Not Available [facility] 09/27/2020 03:36:24 What Was The Date Of Your Most Recent Tobacco Screening? 03/11/2019 [id number] Information not available 09/27/2020 Sex: Unknown Functional Status None recorded. Mental Status None recorded. Family History Nothing Reported. Medical History Condition Response Coronary Artery Disease N Other N Gout N Blood Diseases N Kidney Stones N Breast Cancer N Blood Transfusion N Lung Disease N Depression N COPD N Defects or Inherited Disease N Anxiety Disorder N Muscle, Joint, or Bone Problems N Obesity N Vision or Eye Problems N Arthritis N Infertility N Polyps N Mental Disorder N Cancer N Stroke N Varicosities N Endometriosis N Bladder or Kidney Problems N High Cholesterol N Liver Disease N Fibromyalgia N Headaches N Kidney Disease N Allergies/Hayfever N Heart Problems N Hospitalizations N Thyroid Problems N GI Problems N Eating Disorder N Skin Problems N Anemia N MRSA exposure N Constipation N Mental Illness N Diabetes N Ovarian Cancer N Seizures/Epilepsy N Tuberculosis N Congestive Heart Failure (CHF) N Eczema N Abuse/Domestic Violence N Diverticulitis N Asthma N Reflux/GERD N Hepatitis N Heart Disease N Pulmonary Embolism N Hypertension N Chicken Pox N Autism Spectrum Disorder (ASD) N Osteoporosis N Gynecological HistoryNo gynecological history recorded. Obstetrics History GPAL:G 0 P 0 0 0 0 Immunizations Vaccine Type Date Status Note Provider Nam e and Address Organization Details Recorded Time Influenza, split virus, quadrivalent, preservative 07/25/20 18 completed Jing Novka NP, S [address] [place], [address], [facility] 11/11/2018 09:58:00 Pneumococcal conjugate PCV 13 12/25/19 18 [facility] 11/11/2018 09:44:33 pneumococcal polysaccharide PPV23 01/20/20 19 completed February YEVGENIY Foreman [address] [place], [address], [facility] 07/22/2019 10:32:40 Influenza, split virus, quadrivalent, preservative 07/30/20 19 [facility] 08/[facility]/2019 08:08:04 Td (adult) 07/26/20 14 completed Jing Novak NP, S [address] [place], [address], [facility] 07/07/2018 16:33:47 Past Encounters Encounter ID Performer Location Encounter Start Date Encounter Closed Date Diagnosis/Indication Diagnosis SNOMED-CT Code Diagnosis ICD10 Code Diagnosis Note [id number] [facility] [address],[place] [address] 04/16/2018 09:37:41 04/16/2018 12:55:31 Essential hypertension 76672715 I10 stable Pre-existi ng type 2 diabetes mellitus 003651024 E11.9 try to check home blood sugars Ulcerative colitis 35424 004 K51.90 trialing off Lialda r/t expense Hypercholesterolemia 136 07379 E78.00 recheck labs prior to next visit Rheumatoid arthritis 698 88820 M06.9 asymptomat ic [id number] [facility] [address] [place] [address],[place] [address] 07/23/2018 09:39:16 07/23/2018 17:12:10 Essential hypertension 33055664 I10 stable Hypercholesterolemia 136 75364 E78.00 follow ldl 121, on simvastati n Impaired f asting glycemia 671622330 R73.01 A1C 6.3 Ulcerative colitis 36583 004 K51.90 trialing off Lialda r/t expense Rheumatoid arthritis 698 88109 M06.[place] [id number] Ch[address] JohansenPepe Crawford, [facility] [address] [facility], [place] [address] 11/11/2018 09:33:44 11/14/2018 11:17:40 Impaired fasting glycemia 371736318 R73.01 A1C 6.3 Hypercholesterolemia 136 54942 E78.00 RR > 3.5 Essential hypertension 61334177 I10 stable Ulcerative colitis 12171 004 K51.90 trialing off Lialda r/t expense Rheumatoid arthritis 698 07537 M06.9 asymptomat ic- no meds [id number] [facility] [address] [facility], [place] [address] 03/11/2019 09:40:22 03/11/2019 16:41:57 Hypercholesterolemia 95274495 E78.00 to try 30 mg Impaired f asting glycemia 065154174 R73.01 A1C 6.8, discussed Essential hypertension 17297992 I10 stable Ulcerative colitis 76314 004 K51.90 remains off Lialda r/t expense Rheumatoid arthritis 698 27966 M06.9 asymptomat ic- no meds [id number] [facility] [address] [facility], [place] [address] 07/22/2019 10:01:31 07/22/2019 10:57:47 Hypercholesterolemia 42058107 E78.00 pt reluctant to go up to 40 mg of simvastati n, will change to atorvastat in 20 mg wants to finish off the simvastati n 30 mg qd Impaired f asting glycemia 838909070 R73.01 stable at 6.8 Essential hypertension 97844807 I10 stable Ulcerative colitis 66957 004 K51.90 in remission Rheumatoid arthritis 698 91730 M06.9 quiet Health Concerns Section Related Observation LastModified by Organization Detai ls LastModified Time None Recorded Concern Status LastModified by Organization Details LastModified Time None Recorded Advance Directives Directive None Recorded Payers Encounter Date Sequence Insurance Name Policy Number Policy Girard Covered Member ID Girard Member ID Guarantor Name 04/16/2018 2 [place] [id number] Susan J [place] [id number] Susan Mars [place] 04/16/2018 1 [place] [id number] Susan Mars [place] 07/23/2018 2 [place] [id number] Susan Mars [place] [id number] Susan Mars Flynn[place]erry 07/23/2018 1 [place] Susan Mars Kerry [id number] Susan Mars [place] 11/11/2018 2 [place] [id number] Susan Mars Payne [id number] Susan Mars [place] 11/11/2018 1 [place] Susan Mars Payne [id number] Susan Mars [place] 03/11/2019 2 [place] [id number] Susan Mars Payne [id number] Susan Mars [place] 03/11/2019 1 [place] Susan Mars Payne [id number] Susan [place] 07/22/2019 2 [place] [id number] Susan Mars Payne [id number] Susan Mars Flynn[place]erry 07/22/2019 1 [place] Susanpatricia Payne [id number] Susanpatricia Payne Notes Date Note Type Note Provider Name a nd Address Organization Details Recorded Time 04/16/2018 text/html Feels well Tryin g to wean off Lialda, drinking lucia water and taking tumeric, follows with Dr. 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 Feels good Has been careful with diet, rare red meat, limits carbohydrates continues to be off lialda, no recent ulcerative colitis flares Joints feel good Not walking as much 2nd heat, but plans to increase Jing Novak NP, S [address] [place], [address], [facility] 07/23/2018 11:30:57 11/11/2018 text/html Routine appt Fee ls well, no concerns Maintains self off RA and Crohns medications Walks dogs daily without difficulty Jing Novak NP, S [address] [place] [address], [address], [facility] 11/11/2018 10:23:57 03/11/2019 text/html Routine appt did not change simvastatin to 40 mg, worried about myalgias Has colonoscopy scheduled this summer w/ Dr. Shaffer remains off lialda feels well Jing Novak NP, S [address] [place] [address], [address], [facility] 03/11/2019 11:18:04 07/22/2019 text/html [...] rashes, or nail changes. YEVGENIY Ellington [address] [place], [address], [facility] 07/22/2019 10:36:32 OBGyn Episode No OBEpisode recorded.
--- OUTSIDE RECORDS SUMMARY | 2025-04-09 07:57 | XMS_ITS | Patient Health Record ---
Author Organization [facility] Address [address] [place] [address] Care Team Providers Care Scientific Linguist Name Role Phone Catalina Saldivar MD Primary Care Provider Qi Leyva Unavailable [phone] Allergies Allergen (clinical drug ingredient) Drug/Non Drug [...] Problem Status W/U Status Risk Notes Problem 629572417 Neuropathy (G62.9) Active confirmed Problem 87100624 Type 2 diabetes mellitus with polyneuropathy (E11.42) Active confirmed Problem 589411330032847 Osteoarthritis o f right ankle and foot (M19.071) Active confirmed Plan Of Treatment Pending Test Test Name Order Date X ray : Foot, right 3V 08/11/2021 Insurance Providers Payer Name Payer Address Payer Phone Subscriber Number Group Number Insured Name Patient Relationship to Insured Coverage Start Date Coverage End Date Medicare National Govt Sv[employer] [address] [place] [address] [id number] Susan Payne Self - patient is the insured [employer] [address] [place] [address] [phone] [id number] Susan Payne Self - patient is the insured Medical (General) History Medical History History ICD Code Skin cancer Crohns disease type II diabetes High blood pressure Colitis Chicken pox Surgical History Surgery Date(Month/Year) hysterectomy wisdom teeth extraction colonoscopy
[2025-04-09 10:17] LABS: MANUAL DIFF FLAG NO
[2025-04-09 10:26] LABS: Basophils Absolute Auto 0.1 X10*3/uL (0.0-0.2); Basophils Percent Auto 0.9 % (0-2); Eosinophils Absolute Auto 0.4 X10*3/uL (0.0-0.4); Hematocrit 38.5 % (37.0-47.0); Hemoglobin 12.8 g/dl (12.0-16.0); Imm Gran Abs Auto 0.01 X10*3/uL (0.00-0.03); Imm Gran Pct Auto 0.2 % (0.0-0.4); Lymphocytes Absolute Auto 2.4 X10*3/uL (1.2-4.9); Mean Corpuscular HGB Conc 33.2 g/dl (31.0-35.0); Mean Corpuscular Volume 87.3 fL (80.0-98.0); Mean Platelet Volume 9.4 fL (9.4-12.3); Monocytes Absolute Auto 0.5 X10*3/uL (0.1-1.2); Neutrophils Absolute Auto 3.1 x10*3/uL (2.0-8.3); Neutrophils Percent Auto 47.9 % (45-73); Platelet Count 209 X10*3/uL (160-400); Red Blood Count 4.41 X10*6/uL (4.20-5.50); White Blood Count 6.5 X10*3/uL (4.8-10.8)
[2025-04-09 10:45] LABS: Estimated Average Glucose 157 mg/dL; Hemoglobin A1C 184.7487 umol/L; Hemoglobin A1c % 7.1 % (<6.0); Total Hemoglobin (HGBA1C) 3430.0576 umol/L
[2025-04-09 11:19] LABS: Alanine Aminotransferase 10 U/L (0-31); Albumin Level 4.1 g/dL (3.5-5.0); Alkaline Phosphatase 66 U/L (39-117); Anion Gap 10 (12-20); Aspartate Amino Transferase 18 U/L (5-31); Bilirubin Total 0.5 mg/dL (0.0-1.0); Blood Urea Nitrogen 29 mg/dL (9-16); Calcium 9.2 mg/dL (8.4-10.2); Carbon Dioxide 25 mmol/L (22-29); Chloride 107 mmol/L (96-108); Cholesterol 170 mg/dL (<200); Estimated Glomerular Filt Rate > 60; Glucose Fasting 153 mg/dL (60-99); HDL Cholesterol 49 mg/dL (>40); LDL Cholesterol Calculated 91 mg/dL (<100); Potassium 4.3 mmol/L (3.3-5.1); Sodium 138 mmol/L (135-145); TSH reflex Free T4 1.68 uIU/mL (0.32-4.0); Total Protein 6.7 g/dL (6.5-8.0); Triglycerides 151 mg/dL (<150)
== END 2025-04-09 07:53 | disposition home or self-care (01) ==
LOC: HO.HMGCLDS 07:52
PROVIDERS: PCP Internal Medicine; Visit Provider Internal Medicine
DX: E04.9 Nontoxic goiter, unspecified (principal); I10 Essential (primary) hypertension; E78.5 Hyperlipidemia, unspecified; E11.9 Type 2 diabetes mellitus without complications
CPT/HCPCS: 36415; 80053; 80061; 83036; 84443; 85025

== ENCOUNTER 2025-04-14 12:54 | Outpatient (AMB) | payer MEDICARE, SELFPAY ==
[2025-04-14 12:56] VITALS: BP 108/72; PULSE 67; O2SAT 95; BMI 29.5
--- NOTE | 2025-04-14 12:56 | A.OFFVIS_ITS ---
Vital Signs 04/14/25 12:56 Height 5 ft 1 in Weight 156 lb 1.396 oz BMI 29.5 BP 108/72 Blood Pressure Location Lt brachial Position Sitting Pulse 67 Pulse Source Pulse Oximeter Pulse Oximetry (%) 95 Oxygen Delivery Method Room Air Intake Visit Reasons: Biopsy f/u Intake Note: Patient present today for biopsy results. Refund Clerk Required: No Accompanied by: Self / Same As Patient Allergies amoxicillin [AMOXICILLIN] Allergy (Intermediate, Verified 04/14/25 13:00) RASH Medication List - Last Reconciled 04/14/25 by Tamela Herman MD atenolol 25 mg PO DAILY atorvastatin 20 mg PO DAILY bisacodyl (Dulcolax (bisacodyl)) 20 mg (4 x 5 mg) PO ONCE 1 day blood sugar diagnostic (Tablelist Incuch Ultra Test strips) test glucose once a day blood-glucose meter (Tablelist Incuch Ultra2 Meter kit) As directed blood-glucose meter (Tablelist Incuch Ultra2 Meter) As directed cholecalciferol (vitamin D3) 25 mcg PO DAILY lancets ([employer] Delica Plus Lancet) Test daily lancing device with lancets ([employer] Delica Lancing Device kit) test one a day lisinopril 5 mg PO DAILY metformin ER 1,000 mg (2 x 500 mg) PO DAILY zjuplzrc-yhsojnl-qjet-lutein tabs PO polyethylene glycol 3350 (Miralax) 238 grams PO ONCE 1 day sulfasalazine 500 mg PO BID 90 days HPI Comments Details: 79-year-old female coming in today for follow up of nontoxic multinodular goiter. HPI Went for annual physical, PCP palpated the nodules. Ultrasound of the thyroid from 10/27/2024, I reviewed the images myself showed a large right mid lobe 4.3 cm, solid, isoechoic, nodule with possible extrathyroidal extension making it a TR 4 category nodule. Another dominant left inferior 1.8 cm solid, isoechoic, taller than wide nodule noted also with possible extrathyroidal extension and macrocalcifications, making this is a TR 5 category nodule. Both of these meet criteria for FNA. No prior history of thyroid problems. Patient currently denies heat or cold intolerance, , palpitation, anxiety, weight changes, mood changes, low energy, changes in appearance of eyes or vision changes, tremors, increased diaphoresis or dry skin. ?Bowel movements vriable as she has ulcerative colitis. Feels hair is thinning. Patient denies any difficulty swallowing, pain on swallowing or difficulty yonis athing. Intermittent hoarseness. Patient denies any history of childhood neck radiation. Denies having ever used lithium, amiodarone or biotin supplements. Patient denies any family history of thyroid cancer or thyroid disease. Interval history 03/24/2025: Underwent FNA of the right mid 4.3 cm which came back as AUS ([place] category 3) with cells in a microfollicular arrangement without any cytologic or nuclear atypia, Afirma results came back benign with 4% risk malignancy. Also had biopsy of the left inferior 1.8 cm nodule which came back as benign. Physical exam General: sitting comfortably in no acute distress HEENT: normocephalic/atraumatic Neck: supple, palpable 3 cm right-sided nodule, palpable 1 cm left-sided nodule Cardiac: normal heart sounds Pulm: normal breath sounds B/L, no added breath sounds Abd: not distended Extremities: no edema, no signs of myxedema Laboratory Tests 04/03/24 07:42 TSH 1.62 Laboratory Tests 04/09/25 07:56 TSH 1.68 US THYROID 10/27/24 CLINICAL INFORMATION: Nontoxic goiter, unspecified. COMPARISON: None available. TECHNIQUE: Linear transducer grayscale and color Doppler examination with attention to the region of the thyroid. FINDINGS: Submitted for interpretation on December 09, 2024. SIZE: Measurements of the thyroid lobes and nodules are given in sagittal, anteroposterior and transverse dimensions respectively. Right Thyroid Lobe: 5.8 x 3.0 x 3.5 cm, volume 31.9 mL. Parenchyma: The gland echotexture is homogeneous. Thyroid vascularity is increased. Left Thyroid Lobe: 5.5 x 1.7 x 1.5 cm, volume 7.3 mL. Parenchyma: The gland echotexture is heterogeneous. Thyroid vascularity is normal. Isthmus: 0.6 cm in maximum AP dimension. Estimated total number of nodules greater than or equal to 1 cm: 3. Md Senior Research Scientist nodules are described as follows: 1. Location: Right mid. Size: 4.3 x 3.3 x 3.7 cm, volume 27.4 mL. Nodule characteristics: Composition: Solid (2). Echogenicity: Isoechoic (1). Shape: Not taller than wide (0). Margins: Extrathyroidal extension (3). Echogenic Foci: None (0). ACR TI-RADS total points: 6 ACR TI-RADS category: 4 2. Location: Right medial inferior. Size: 1.0 x 0.8 x 1.2 cm, volume 0.50 mL. Nodule characteristics: Composition: Solid (2). Echogenicity: Hypoechoic (2). Shape: Not taller than wide (0). Margins: Smooth (0). Echogenic Foci: None (0). ACR TI-RADS total points: 4 ACR TI-RADS category: 4 3. Location: Left inferior. Size: 1.8 x 1.7 x 1.6 cm, volume 2.42 mL. Nodule characteristics: Composition: Solid (2). Echogenicity: Cannot be determined (1). Shape: Taller than wide (3). Margins: Extrathyroidal extension (3). Echogenic Foci: Macrocalcifications (1). ACR TI-RADS total points: 10 ACR TI-RADS category: 5 NODES: No lymphadenopathy is seen in the tissue surrounding the thyroid gland. US/US thyroid IMPRESSION: TI-RADS 4 on the dominant nodule, right thyroid lobe.. TI-RADS 5 on the dominant nodule, left thyroid lobe. [facility] Medical History (Updated 02/15/25 @ 10:59 by Tamela Herman MD) Multinodular goiter Squamous cell carcinoma of left lower leg History of ulcerative colitis History of kidney stones Basal cell carcinoma Foot pain, right Mammogram normal HTN (hypertension) Hyperlipidemia DM type 2 (diabetes mellitus, type 2) Surgical History Hx of hysterectomy Hx of colonoscopy Family History Father Hypertension Heart disease Colon cancer Mother Hypertension Diabetes Heart disease Other Substance use disorder Social History Housing: House Patient Tobacco Use Status: Never used Tobacco e-Cigarette/Vaping Use: Never Used Second Hand Smoke Exposure: Yes Advance Directives Date on File: 09/06/21 service: No Current occupational status: retired Current occupational exposures/hazards: No Cognitive needs: No Hearing needs: No Vision needs: No Physical Exam Vital Signs: Last Vital Signs Pulse 67 04/14/25 12:56 BP 108/72 04/14/25 12:56 Pulse Ox 95 04/14/25 12:56 Oxygen Delivery Method Room Air 04/14/25 12:56 BMI result Body Mass Index 29.5 Assessment & Plan Assessment & Plan (1) Multinodular goiter: Code(s): E04.2 - Nontoxic multinodular goiter Category: Medical Plan: 79-year-old female with no family history of thyroid cancer, with no personal history of head or neck radiation, coming in today for initial evaluation nontoxic multinodular goiter. Ultrasound of the thyroid from 10/27/2024, I reviewed the images myself showed a large right mid lobe 4.3 cm, solid, isoechoic, nodule with possible extrathyroidal extension making it a TR 4 category nodule. Another dominant left inferior 1.8 cm solid, isoechoic, taller than wide nodule noted also with possible extrathyroidal extension and macrocalcifications, making this is a TR 5 category nodule. Both of these meet criteria for FNA. Normal TSH from February 2025. She does not have any major compressive symptoms, just intermittent hoarseness. 03/24/2025: Underwent FNA of the right mid 4.3 cm which came back as AUS ([place] category 3) with cells in a microfollicular arrangement without any cytologic or nuclear atypia, Afirma results came back benign with 4% risk malignancy. Also had biopsy of the left inferior 1.8 cm nodule which came back as benign. Discussed with the patient benign results yield less than 3% risk of malignancy. At this point we will plan to have her repeat an ultrasound end of February 2026 with plan for follow up in 1 year in March 2026. Plan: - ordered ultrasound of the thyroid to be done in end of February 2026 with follow up in 1 year in March 2026 -do TSH with a reflex free T4 a few days prior to appointment in 1 year Plan See above Orders: Orders US thyroid 03/21/26 E04.2 - Nontoxic multinodular goiter TSH reflex Free T4 03/21/26 E04.2 - Nontoxic multinodular goiter Patient Instructions: Do ultrasound of the thyroid end of February 2026, someone we will call you to schedule this, this should be done a few weeks prior to your appointment in 1 year in March 2026 Do thyroid blood work in 1 year a few days prior to your appointment, orders are in place Coding Level of Care Code Est Pt Level 3 (76281) Diagnoses Multinodular goiter E04.2
--- OUTSIDE RECORDS SUMMARY | 2025-04-14 13:32 | XMS_ITS | Patient Health Record ---
Author Organization [facility] Address [address] [place] [address] Care Team Providers Care Ultrasound Applications Specialist Name Role Phone Catalina Saldivar MD Primary Care Provider Qi Leyva Unavailable [phone] Allergies Allergen (clinical drug ingredient) Drug/Non Drug [...] Problem Status W/U Status Risk Notes Problem 590410396 Neuropathy (G62.9) Active confirmed Problem 85032570 Type 2 diabetes mellitus with polyneuropathy (E11.42) Active confirmed Problem 457896110127919 Osteoarthritis o f right ankle and foot (M19.071) Active confirmed Plan Of Treatment Pending Test Test Name Order Date X ray : Foot, right 3V 08/11/2021 Insurance Providers Payer Name Payer Address Payer Phone Subscriber Number Group Number Insured Name Patient Relationship to Insured Coverage Start Date Coverage End Date Medicare National Govt Svcs Inc [address] [place] [address] [id number] Susan Payne Self - patient is the insured [employer] [address] [place] [address] [id number] Susan Payne Self - patient is the insured Medical (General) History Medical History History ICD Code Skin cancer Crohns disease type II diabetes High blood pressure Colitis Chicken pox Surgical History Surgery Date(Month/Year) hysterectomy wisdom teeth extraction colonoscopy
--- OUTSIDE RECORDS SUMMARY | 2025-04-14 13:32 | XMS_ITS | Data Portability ---
Author Organization [facility] Address [address] [place] [address] Assessment No assessment recorded. Plan of Treatment [...] tablet 2018 019 INTERFACE [id number], [address] [place], [address], 9 10:34:32 simvastati n 10 mg tablet 2018 019 INTERFACE [id number], [address] [place], [address], 9 10:04:58 simvastati n 20 mg tablet 2018 019 INTERFACE [id number], [address] [place], [address], 9 10:04:58 Patient TargetsNo targets recorded. Patient Instructions Encounter Date Encounter Id Patient Instructions Last Modified By Organization Details Last Modified Time 07/23/2018 [id number] Continue healthy diet jeffery Not available 07/23/2018 11:27:53 walk regularly jeffery Not available 0 07/23/2018 11:28:12 11/11/2018 [id number] F/U 4 months, sooner prn Discuss healthy dietary choices and portion sizes. Lean protein, less processed foods Review cardiovascular exercise 1/2 hour 5 days week (walk, swim, bike etc), may break up into three 10 minute segments Discuss risks diabetes, associated with sedentary lifestyle jeffery Not available 11/11/2018 10:23:41 jeffery Not available 2017 10:23:00 07/22/2019 [id number] prediabetes: car e instructions Not available 07/22/2019 [...] bilat eral No observ ation record ed. [facility] [address] [place] [address], [address], 05/30/2018 13:54:19 06/08/20 19 06/05/2019 MAMMO , scree isaiah, bilat eral No observ ation record ed. [email or web address] [place] [address] (Medical Records) [address] [place] [address], [address], 06/08/2019 13:43:44 04/05/20 22 04/04/2022 MAMMO , estere isaiah, digit al, bilat eral No observ ation record ed. [email or web address] [place] [address] [address] [place], [address], 04/05/2022 10:04:34 Result Notes None recorded. Problems Name Problem SNOMED Code Status Onset Date Resolution Date Notes Provider Name and Address Organization Details Recorded Time Basal cell carcinoma of skin 607521766 Active 2008 Jing Novak NP, S [address] [place], [address], [facility] [place] 8 16:35:23 Basal cell carcinoma of skin 464083877 Active 2008 Jing Novak NP, S [address] [place] [address], [address], [facility] 8 16:35:51 Impaired fasting glycemia 503961252 Active 2017 Jing Novak NP, S [address] [place] [address], [address], [facility] 8 13:01:20 Vitamin D deficiency 00713338 Active 2018 PADMINI ForemanBRENT [address] [place] [address], [address], [facility] 9 10:22:21 Essential hypertensi on 69067402 Active [facility] 8 15:40:24 Hyperchole sterolemia 16772554 Active 2017 Liya terry [facility] 8 15:40:36 Ulcerative colitis 53291990 Active 2017 [facility] 8 15:40:51 Rheumatoid arthritis 10619485 Active 2017 Liya terry [facility] 8 15:40:59 Kidney stone 94182604 Active 2017 [facility] 8 15:41:11 Problem Notes None recorded. Procedures Surgical History Date Name Laterality Status Provider Name and Address Organization Details Recorded Time 03/25/20 13 Colonoscopy completed Jing Novak NP, S [address] [place], [address], [facility] 07/07/2018 16:31:58 Total Hysterectomy completed Jing Novak NP, S [address] [place], [address], [facility] 07/07/2018 16:31:33 Imaging Results Imaging Date Name Status LastModified by Organiz ation Details LastModified Time 05/30/2018 MAMMO, screening, bilateral completed [facility] [address] [place] [address], [address], 05/30/2018 13:54:19 06/05/2019 MAMMO, screening, [facility] [place] [address] (Medical Records) [address] [place] [address], [address], 06/08/2019 13:43:44 04/04/2022 MAMMO, screening, digital, bilateral completed [email or web address] [place] [address] [facility] [address] [place] [address] [place], [address], 04/05/2022 10:04:34 Procedure Notes None recorded. Medical Equipment None Reported. Allergies Allergen ID Allergen Name Allergen Category Reaction Reaction Severity Criticality Documentation Date Start Date Code Code System Note Provider Name and Address Organization Details Recorded Time 1425 amoxicill in medicatio n Not available Not available Not available 04/15/2018 723 [facility] 8 15:40:15 Medications Name Sig Start Date [...] Updated DateTime 8 156.21 cm 30.1 kg/m2 42190.2 5 g 52 /min 96 % 96 % 124 mm[Hg] 72 mm[Hg] Liya Rosario [facility] [place] [facility] 8 10:08:50 Date Recorded Body height Body mass index (BMI) Body weight Heart rate Oxygen saturation Oxygen saturation in Arterial blood by Pulse oximetry Systolic blood pressure Diastolic blood pressure Provider Name and Address Organization Details Last Updated DateTime 8 156.21 cm 30.9 kg/m2 76608.3 3 g 61 /min 96 % 96 % 126 mm[Hg] 76 mm[Hg] Liya Rosario [facility] [place] [facility] 8 09:43:47 Date Recorded Body height Body mass index (BMI) Body weight Heart rate Oxygen saturation Oxygen saturation in Arterial blood by Pulse oximetry Systolic blood pressure Diastolic blood pressure Provider Name and Address Organization Details Last Updated DateTime 9 156.21 cm 31.2 kg/m2 23484.0 8 g 60 /min 98 % 98 % 128 mm[Hg] 80 mm[Hg] Kanchan Florez [facility] [place] [facility] 9 09:53:07 Date Recorded Body weight Body mass index (BMI) Body height Heart rate Oxygen saturation Oxygen saturation in Arterial blood by Pulse oximetry Systolic blood pressure Diastolic blood pressure Provider Name and Address Organization Details Last Updated DateTime 8 82346.7 6 g 30.2 kg/m2 156.21 cm 56 /min 96 % 96 % 132 mm[Hg] 76 mm[Hg] Liya Bowenisabel [facility] [place] [facility] 8 09:45:36 Date Recorded Systolic blood pressure Diastolic blood pressure Provider Name and Address Organization Details Last Updated DateTime 04/16/2018 128 mm[Hg] 70 mm[Hg] Jing Novak NP, S [address] [place], [address], [facility] [place] [facility] 04/16/2018 10:03:07 Date Recorded Body height Body mass index (BMI) Body weight Heart rate Oxygen saturation Oxygen saturation in Arterial blood by Pulse oximetry Systolic blood pressure Diastolic blood pressure Provider Name and Address Organization Details Last Updated DateTime 9 156.21 cm 31.5 kg/m2 61371.5 5 g 60 /min 96 % 96 % 138 mm[Hg] 72 mm[Hg] Kanchan Florez [facility] [place] [facility] 9 10:14:48 Social History Question Answer Notes LastModified by [employer] ion Details LastModified Time Tobacco Smoking Status Never Smoker Not Available [facility] 09/27/2020 03:36:24 What Was The Date Of Your Most Recent Tobacco Screening? 03/11/2019 [id number] Information not available 09/27/2020 Sex: Unknown Functional Status None recorded. Mental Status None recorded. Family History Nothing Reported. Medical History Condition Response Coronary Artery Disease N Gout N Other N Kidney Stones N Blood Diseases N Blood Transfusion N Breast Cancer N Lung Disease N Depression N COPD [...] virus, quadrivalent, preservative 07/25/20 18 completed Jing Novak NP, S [address] [place], [address], [facility] [place] 11/11/2018 09:58:00 Pneumococcal conjugate PCV 13 12/25/19 18 [facility] [place] 11/11/2018 09:44:33 pneumococcal polysaccharide PPV23 01/20/20 19 completed February YEVGENIY Foreman [address] [place], [address], [facility] 07/22/2019 10:32:40 Influenza, split virus, quadrivalent, preservative 07/30/20 19 [facility] 08/05/2019 08:08:04 Td (adult) 07/26/20 14 completed Jing Novak NP, S [address] [place], [address], [facility] 07/07/2018 16:33:47 Past Encounters Encounter ID Performer Location Encounter Start Date Encounter Closed Date Diagnosis/Indication Diagnosis SNOMED-CT Code Diagnosis ICD10 Code Diagnosis Note [id number] [facility] [address],[place] [address] 04/16/2018 09:37:41 04/16/2018 12:55:31 Essential hypertension 03005002 I10 stable Pre-existi ng type 2 diabetes mellitus 237106410 E11.9 try to check home blood sugars Ulcerative colitis 13200 004 K51.90 trialing off Lialda r/t expense Hypercholesterolemia 136 86202 E78.00 recheck labs prior to next visit Rheumatoid arthritis 698 42753 M06.9 asymptomat ic [id number] Chidi Crawford [facility] [address] [place] [address],[place] [address] 07/23/2018 09:39:16 07/23/2018 17:12:10 Essential hypertension 59642246 I10 stable Hypercholesterolemia 136 10814 E78.00 follow ldl 121, on simvastati n Impaired f asting glycemia 620565286 R73.01 A1C 6.3 Ulcerative colitis 95943 004 K51.90 trialing off Lialda r/t expense Rheumatoid arthritis 698 12955 M06.[place] [id number] Chidi JohansenPepe Crawford, [facility] [address] [facility], [place] [address] 11/11/2018 09:33:44 11/14/2018 11:17:40 Impaired fasting glycemia 040958194 R73.01 A1C 6.3 Hypercholesterolemia 136 77169 E78.00 RR > 3.5 Essential hypertension 97605496 I10 stable Ulcerative colitis 26189 004 K51.90 trialing off Lialda r/t expense Rheumatoid arthritis 698 31144 M06.9 asymptomat ic- no meds [id number] [facility] [place] [address] [facility], [place] [address] 03/11/2019 09:40:22 03/11/2019 16:41:57 Hypercholesterolemia 23892041 E78.00 to try 30 mg Impaired f asting glycemia 839127922 R73.01 A1C 6.8, discussed Essential hypertension 31227865 I10 stable Ulcerative colitis 31358 004 K51.90 remains off Lialda r/t expense Rheumatoid arthritis 698 69714 M06.9 asymptomat ic- no meds [id number] [facility] App[facility] [place] [address] [facility] [place] [address] 07/22/2019 10:01:31 07/22/2019 10:57:47 Hypercholesterolemia 64365641 E78.00 pt reluctant to go up to 40 mg of simvastati n, will change to atorvastat in 20 mg wants to finish off the simvastati n 30 mg qd Impaired f asting glycemia 448341331 R73.01 stable at 6.8 Essential hypertension 51707511 I10 stable Ulcerative colitis 09033 004 K51.90 in remission Rheumatoid arthritis 698 13323 M06.9 quiet Health Concerns Section Related Observation LastModified by Organization Detai ls LastModified Time None Recorded Concern Status LastModified by Organization Details LastModified Time None Recorded Advance Directives Directive None Recorded Payers Encounter Date Sequence Insurance Name Policy Number Policy Girard Covered Member ID Girard Member ID Guarantor Name 04/16/2018 2 [place] [id number] Susan J Rico [id number] Susan Mars Rico 04/16/2018 1 [place] Susan Mars FlynnRico [id number] Susan Mars FlynnKerry 07/23/2018 2 [place] [id number] Susan Mars Payne [id number] Susan Mars FlynnKerry 07/23/2018 1 [place] Susan Mars Kerry [id number] Susan Mars FlynnRico 11/11/2018 2 [place] [id number] Susan Mars Payne [id number] Susan Mars FlynnRico 11/11/2018 1 [place] Susan Mars Payne [id number] Susan Mars FlynnRico 03/11/2019 2 [place] [id number] Susan Mars Payne [id number] Susan Mars Rico 03/11/2019 1 [place] Susan Mars Payne [id number] Susan Mars FlynnRico 07/22/2019 2 [place] [id number] Susan Mars Payne [id number] Susan Mars FlynnKerry 07/22/2019 1 [place] Susanpatricia Payne [id number] Susanpatricia Payne Notes Date Note Type Note Provider Name a nd Address Organization Details Recorded Time 04/16/2018 text/html Feels well Tryin g to wean off Lialda, drinking lucia water and taking tumeric, follows with Dr. 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 Feels good Has been careful with diet, rare red meat, limits carbohydrates continues to be off lialda, no recent ulcerative colitis flares Joints feel good Not walking as much 2nd heat, but plans to increase Jing Novak NP, S [address] [place], [address], [facility] 07/23/2018 11:30:57 11/11/2018 text/html Routine appt Fee ls well, no concerns Maintains self off RA and Crohns medications Walks dogs daily without difficulty Jing Novak NP, S [address] [place] [address], [address], [facility] 11/11/2018 10:23:57 03/11/2019 text/html Routine appt did not change simvastatin to 40 mg, worried about myalgias Has colonoscopy scheduled this summer w/ Dr. Shaffer remains off lialda feels well Jing Novak NP, S [address] [place] [address], [address], [facility] 03/11/2019 11:18:04 07/22/2019 [...] rashes, or nail changes. YEVGENIY Ellington [address] [place], [address], [facility] 07/22/2019 10:36:32 OBGyn Episode No OBEpisode recorded.
== END 2025-04-14 13:11 | disposition home or self-care (01) ==
LOC: HO.ENCR 12:55
PROVIDERS: PCP Internal Medicine; Visit Provider Student in an Organized Health Care Education/Training Program
DX: E04.2 Nontoxic multinodular goiter (principal)
CPT/HCPCS: 99213

== ENCOUNTER → 2025-04-14 12:54 | Outpatient (BNVA) | payer MEDICARE, SELFPAY | PROVIDERS: PCP Internal Medicine; Visit Provider Student in an Organized Health Care Education/Training Program | DX: E04.2 Nontoxic multinodular goiter (principal) | CPT/HCPCS: 99212 ==

== ENCOUNTER 2025-04-16 09:12 | Outpatient (AMB) | payer MEDICARE, SELFPAY ==
[2025-04-16 09:24] VITALS: BP 116/68; PULSE 68; O2SAT 97; BMI 29.1
--- NOTE | 2025-04-16 09:24 | MHC.PC.OV ---
Vital Signs 04/16/25 09:24 Height 5 ft 1 in Weight 154 lb BMI 29.1 BP 116/68 Blood Pressure Location Rt brachial Position Sitting Pulse 68 Pulse Source Pulse Oximeter Pulse Oximetry (%) 97 Oxygen Delivery Method Room Air Intake Visit Reasons: 6 months follow up Accompanied by: Self / Same As Patient Allergies amoxicillin [AMOXICILLIN] Allergy (Intermediate, Verified 04/16/25 09:25) RASH Medication List - Last Reconciled 04/16/25 by Catalina Saldivar MD atenolol 25 mg PO DAILY atorvastatin 20 mg PO DAILY blood sugar diagnostic ([employer] Ultra Test strips) test glucose once a day blood-glucose meter ([employer] Ultra2 Meter kit) As directed blood-glucose meter ([employer] Ultra2 Meter) As directed cholecalciferol (vitamin D3) 25 mcg PO DAILY lancets ([employer] Delica Plus Lancet) Test daily lancing device with lancets ([employer] Delica Lancing Device kit) test one a day lisinopril 5 mg PO DAILY metformin ER 1,000 mg (2 x 500 mg) PO DAILY npxctmkc-xyssruw-tcvd-lutein tabs PO sulfasalazine 500 mg PO BID 90 days Tobacco use date assessed: 04/16/25 Fall risk assessment: No Falls in past year Last assessed Fall Risk: 04/16/25 Dental Screening Dental Screen Date: 04/16/25 Did you have a dental visit in the last 12 months?: Yes Did you have a dental problem in the last 6 months where you did not have access to dental care?: No Was dental information given to patient?: Patient has dentist HPI 6 months follow up HPI Details Patient presents for the follow-up on hypertension hyperlipidemia type 2 diabetes. She had negative biopsy of multinodular goiter. Patient complains of intermittent left sided jaw and cheek discomfort for 6 months, worse in the evening when sitting and relaxing. Patient reports pain at night as well. Discomfort is dull and relieved by Orajel and Tylenol. Patient denies pain when eating , headaches, jaw claudication. Patient has been feel anxious and stressed out related to her health issues: diagnosed with a squamous cell CA on the right leg and her 's health. [facility] Medical History (Updated 04/16/25 @ 11:11 by Catalina Saldivar MD) Ulcerative colitis Multinodular goiter Squamous cell carcinoma of left lower leg History of ulcerative colitis History of kidney stones Basal cell carcinoma Foot pain, right Mammogram normal HTN (hypertension) Hyperlipidemia DM type 2 (diabetes mellitus, type 2) Surgical History Hx of hysterectomy Hx of colonoscopy Family History Father Hypertension Heart disease Colon cancer Mother Hypertension Diabetes Heart disease Other Substance use disorder Social History Housing: House Patient Tobacco Use Status: Never used Tobacco e-Cigarette/Vaping Use: Never Used Second Hand Smoke Exposure: Yes Advance Directives Date on File: 09/06/21 service: No Current occupational status: retired Current occupational exposures/hazards: No Cognitive needs: No Hearing needs: No Vision needs: No Questionnaire PHQ-9 Over the last 2 weeks, how often have you been bothered by any of the following problems? 1. Little interest or pleasure in doing things: not at all 2. Feeling down, depressed, or hopeless: not at all 3. Trouble falling or staying asleep, or sleeping too much: several days 4. Feeling tired or having little energy: not at all 5. Poor appetite or overeating: not at all 6. Feeling bad about yourself - or that you are a failure or have let yourself or your family down: not at all 7. Trouble concentrating on things, such as reading the newspaper or watching television: not at all 8. Moving or speaking so slowly that other people could have noticed. Or the opposite - being so fidgety or restless that you have been moving around a lot more than usual: not at all 9. Thoughts that you would be better off or of hurting yourself in some way: not at all Total score: 1 Depression Screening Interpretation: Negative Depression Screening Done: Yes 86912 - PHQ-9 Billing: Yes Source: Developed by Drs. Bernard Damon, Debra Gunn, Nicholas Garcia and colleagues, with an educational ivory from [employer]. Thrive Questionnaire Date Thrive assessed: 04/16/25 I am a: Patient What is your living situation today?: I have a steady place to live Within the past 12 months, did the food you bought not last and you didn't have the money to get more?: I choose not to answer this question Within the past 12 months, did you worry whether your food would run out before you got money to buy more?: I choose not to answer this question Do you have trouble paying for medicines?: I choose not to answer this question Do you have trouble getting transportation to medical appointments?: I choose not to answer this question Do you have trouble paying your heating and electricity bill?: I choose not to answer this question Do you have trouble taking care of your child, family member or friend?: I choose not to answer this question Do you have trouble with day-to-day activities such as bathing, preparing meals, shopping, managing finances, etc.?: I choose not to answer this question Are you currently unemployed and looking for a job?: I choose not to answer this question Are you interested in more education?: I choose not to answer this question Please select the resources that you would like help with: None Currently or been in a relationship where the following occur: I choose not to answer THRIVE Score: 0 AUDIT C Alcohol Use Questionnaire (AUDIT-C) 1. How often do you have a drink containing alcohol?: 4 or more times a week 2. How many drinks containing alcohol do you have on a typical day when you are drinking?: 1 or 2 3. How often do you have six or more drinks on one occasion?: Never Total Score: 4 Score Reviewed/Action Taken: Yes JORDY-7 AMB Questionnaire JORDY-7 Date JORDY - 7 assessed: 04/16/25 Feeling nervous, anxious, or on edge: 0 = Not at all Not being able to stop or control worryin = More than half the days Worrying too much about different things: 2 = More than half the days Trouble relaxin = More than half the days Being so restless that it is hard to sit still: 0 = Not at all Becoming easily annoyed or irritable: 2 = More than half the days Feeling afraid as if something awful might happen: 0 = Not at all Total JORDY-7 score (0-4 normal; 5-9 mild; 10-14 moderate; 15-21 severe): 8 Source: Developed by Drs. Bernard Damon, DebraNicholas Burr and colleagues, with an educational ivory from [employer]. JORDY-7 Assessment Billing JORDY-7 Assessment Tool: JORDY-7 Assessment 25855 Review of Systems Const All systems reviewed & are unremarkable except as noted in HPI and below Eyes Reports no additional complaints ENT Reports no additional complaints Card Reports no additional complaints Resp Reports no additional complaints GI Reports no additional complaints Reports no additional complaints Physical exam (Primary Care) Vital Signs: Last Vital Signs Pulse 68 04/16/25 09:24 BP 116/68 04/16/25 09:24 Pulse Ox 97 04/16/25 09:24 Oxygen Delivery Method Room Air 04/16/25 09:24 BMI result Body Mass Index 29.1 Tobacco/Smoking Status: Tobacco use Status Tobacco use date assessed 04/16/25 04/16/25 09:27 Patient Tobacco Use Status Never used Tobacco 04/16/25 09:27 e-Cigarette/Vaping Use Never Used 04/16/25 09:27 PHQ-9: PHQ-9 Score PHQ-9: Total score 1 04/16/25 10:43 Depression Screening Interpretation: Negative Thrive Assessment: Date of Thrive Assessment Date Thrive assessed 04/16/25 04/16/25 09:27 Currently or been in a relationship where the following occur: I choose not to answer Const General: no acute distress HENMT Other: Slight tenderness over left TMJ Head: Yes normal to inspection Mouth: Normal oral and palatal mucosa present Teeth and gingiva: dentition normal Throat: Yes posterior oropharynx normal Eyes General: appearance normal, both eyes and all related structures Neck Neck: Yes no lymphadenopathy and Yes supple Resp Effort & Inspection: normal respiratory effort Auscultation: clear to auscultation bilaterally Cardio Rhythm: regular rhythm Heart sounds: S1 normal heart sound present and S2 normal heart sound present GI Inspection: Yes normal to inspection Palpation (GI): Soft to palpation Percussion: Yes normal to percussion Auscultation: normal bowel sounds Immunizations pneumoc 20-amara conj-dip cr(PF) 0.5 mL IM syringe Performing Provider: Catalina Saldivar MD Performing Location: [facility] [place] [facility] Administered by: Ashlyn Platt CMA on 04/16/25 10:43 Dose Route Admin Location Dispensed Lot Number Expiration Date [facility] Ad Products And Planning 0.5 mL IM Left Deltoid 0.5 mL [id number] 05/24/26 7435-7868-29 WYETH/PFIZER VIS Given Date VIS Provided VIS Publication Date 04/16/25 Single Vaccine 21 Eligibility Eligibility Date Funding Source Not [facility] [place] [facility] Eligible 04/16/25 Private Coding Level of Care Code Est Pt Level 4 (38044) Complex EM visit Add On G2211 Diagnoses DM type 2 (diabetes mellitus, type 2) E11.9 Hyperlipidemia E78.5 HTN (hypertension) I10 Multinodular goiter E04.2 Anxiety F41.9 Additional Codes JORDY-7 Assessment Billing - JORDY-7 Assessment Tool: JORDY-7 Assessment 38187 ([id number]) PHQ-9 - 97290 - PHQ-9 Billing: Yes ([id number]) Assessment & Plan Assessment & Plan (1) DM type 2 (diabetes mellitus, type 2): Comment: diarrhea from Metformin 1000 mg , cannot afford Jardiance Code(s): E11.9 - Type 2 diabetes mellitus without complications Category: Medical Plan: A1c is 7.1, ADA diet increase exercise weight loss discussed with the patient continue metformin follow-up in 3 months with a fasting labs before (2) Hyperlipidemia: Code(s): E78.5 - Hyperlipidemia, unspecified Category: Medical Plan: Continue statin (3) HTN (hypertension): Code(s): I10 - Essential (primary) hypertension Category: Medical Plan: Continue current medications (4) Multinodular goiter: Comment: negative bx 01/2025 , f/u with endo Code(s): E04.2 - Nontoxic multinodular goiter Category: Medical Plan: Follow-up with endocrinology (5) Anxiety: Code(s): F41.9 - Anxiety disorder, unspecified Category: Medical Plan: Start 25 mg of sertraline . stress management discussed with the patient , she declined counseling Orders: Orders Comprehensive [place]. Panel Fast 3 Months E11.9 - Type 2 diabetes mellitus without complications, E78.5 - Hyperlipidemia, unspecified, I10 - Essential (primary) hypertension Complete Blood Count Auto Diff 3 Months E11.9 - Type 2 diabetes mellitus without complications, E78.5 - Hyperlipidemia, unspecified, I10 - Essential (primary) hypertension Microalbumin, Random (w Creat) 3 Months E11.9 - Type 2 diabetes mellitus without complications, E78.5 - Hyperlipidemia, unspecified, I10 - Essential (primary) hypertension Pneumococcal 20 Immunization Today Z23 - Encounter for immunization Lipid Panel 3 Months E11.9 - Type 2 diabetes mellitus without complications, E78.5 - Hyperlipidemia, unspecified, I10 - Essential (primary) hypertension Hemoglobin A1c 3 Months E11.9 - Type 2 diabetes mellitus without complications, E78.5 - Hyperlipidemia, unspecified, I10 - Essential (primary) hypertension Medications: New sertraline 25 mg PO DAILY 90 tabs 0RF
--- OUTSIDE RECORDS SUMMARY | 2025-04-16 09:28 | XMS_ITS | Data Portability ---
Author Organization [facility] Service Address [address] [place] [address] Assessment No assessment recorded. Plan of Treatment [...] tablet 2018 019 INTERFACE [id number], [address] [place], [address], 9 10:34:32 simvastati n 10 mg tablet 2018 019 INTERFACE [id number], [address] [place], [address], 9 10:04:58 simvastati n 20 mg tablet 2018 019 INTERFACE [id number], [address] [place], [address], 9 10:04:58 Patient TargetsNo targets recorded. Patient Instructions Encounter Date Encounter Id Patient Instructions Last Modified By Organization Details Last Modified Time 07/23/2018 [id number] Continue healthy diet jeffery Not available 07/23/2018 11:27:53 walk regularly jeffery Not available 0 07/23/2018 11:28:12 11/11/2018 [id number] F/U 4 months, sooner prn Discuss healthy dietary choices and portion sizes. Lean protein, less processed foods Review cardiovascular exercise 1/2 hour 5 days week (walk, swim, bike etc), may break up into three 10 minute segments Discuss risks diabetes, associated with sedentary lifestyle jeffery Not available 11/11/2018 10:23:41 jeffery Not available 2017 10:23:00 07/22/2019 [id number] prediabetes: car e instructions Not available 07/22/2019 [...] bilat eral No observ ation record ed. [facility] [address] [place] [address], [address], 05/30/2018 13:54:19 06/08/20 19 06/05/2019 MAMMO , scree isaiah, bilat eral No observ ation record ed. [email or web address] [place] [address] (Medical Records) [address] [place] [address], [address], 06/08/2019 13:43:44 04/05/20 22 04/04/2022 MAMMO , estere isaiah, digit al, bilat eral No observ ation record ed. [email or web address] [place] [address] [place], [address], 04/05/2022 10:04:34 Result Notes None recorded. Problems Name Problem SNOMED Code Status Onset Date Resolution Date Notes Provider Name and Address Organization Details Recorded Time Basal cell carcinoma of skin 066837041 Active 2008 Jing Novak NP, S [address] [place], [address], [facility] 8 16:35:23 Basal cell carcinoma of skin 261377797 Active 2008 Jing Novak NP, S [address] [place] [address], [address], [facility] 8 16:35:51 Impaired fasting glycemia 567548454 Active 2017 Jing Novak NP, S [address] [place] [address], [address], [facility] 8 13:01:20 Vitamin D deficiency 66886687 Active 2018 PADMINI ForemanBRENT [address] [place] [address], [address], [facility] 9 10:22:21 Essential hypertensi on 33827624 [facility] 8 15:40:24 Hyperchole sterolemia 82402419 Active 2017 Liya terry [facility] 8 15:40:36 Ulcerative colitis 84148480 Active 2017 [facility] 8 15:40:51 Rheumatoid arthritis 65180645 Active 2017 Liya terry [facility] 8 15:40:59 Kidney stone 56349334 Active [facility] 8 15:41:11 Problem Notes None recorded. Procedures Surgical History Date Name Laterality Status Provider Name and Address Organization Details Recorded Time 03/25/20 13 Colonoscopy completed Jing Novak NP, S [address] [place], [address], [facility] 07/07/2018 16:31:58 Total Hysterectomy completed Jing Novak NP, S [address] [place], [address], [facility] 07/07/2018 16:31:33 Imaging Results Imaging Date Name Status LastModified by Organiz ation Details LastModified Time 05/30/2018 MAMMO, screening, bilateral completed [facility] [address] [place] [address], [address], 05/30/2018 13:54:19 06/05/2019 MAMMO, screening, [email or web address] [place] [address] (Medical Records) [address] [place] [address], [address], 06/08/2019 13:43:44 04/04/2022 MAMMO, screening, digital, bilateral completed [email or web address] [place] [address] [facility] [address] [place] [address] [place], [address], 04/05/2022 10:04:34 Procedure Notes None recorded. Medical Equipment None Reported. Allergies Allergen ID Allergen Name Allergen Category Reaction Reaction Severity Criticality Documentation Date Start Date Code Code System Note Provider Name and Address Organization Details Recorded Time 1425 amoxicill in medicatio n Not available Not available Not available 04/15/2018 723 Rx[facility] 8 15:40:15 Medications Name Sig Start [...] Updated DateTime 8 156.21 cm 30.1 kg/m2 06344.2 5 g 52 /min 96 % 96 % 124 mm[Hg] 72 mm[Hg] Liya Rosario [facility] 8 10:08:50 Date Recorded Body height Body mass index (BMI) Body weight Heart rate Oxygen saturation Oxygen saturation in Arterial blood by Pulse oximetry Systolic blood pressure Diastolic blood pressure Provider Name and Address Organization Details Last Updated DateTime 8 156.21 cm 30.9 kg/m2 93122.3 3 g 61 /min 96 % 96 % 126 mm[Hg] 76 mm[Hg] Liya Rosario [facility] 8 09:43:47 Date Recorded Body height Body mass index (BMI) Body weight Heart rate Oxygen saturation Oxygen saturation in Arterial blood by Pulse oximetry Systolic blood pressure Diastolic blood pressure Provider Name and Address Organization Details Last Updated DateTime 9 156.21 cm 31.2 kg/m2 31325.0 8 g 60 /min 98 % 98 % 128 mm[Hg] 80 mm[Hg] Kanchan Florez [facility] 9 09:53:07 Date Recorded Body weight Body mass index (BMI) Body height Heart rate Oxygen saturation Oxygen saturation in Arterial blood by Pulse oximetry Systolic blood pressure Diastolic blood pressure Provider Name and Address Organization Details Last Updated DateTime 8 15164.7 6 g 30.2 kg/m2 156.21 cm 56 /min 96 % 96 % 132 mm[Hg] 76 mm[Hg] Liya Bowenisabel [facility] 8 09:45:36 Date Recorded Systolic blood pressure Diastolic blood pressure Provider Name and Address Organization Details Last Updated DateTime 04/16/2018 128 mm[Hg] 70 mm[Hg] Jing Novak NP, S [address] [place], [address], [facility] 04/16/2018 10:03:07 Date Recorded Body height Body mass index (BMI) Body weight Heart rate Oxygen saturation Oxygen saturation in Arterial blood by Pulse oximetry Systolic blood pressure Diastolic blood pressure Provider Name and Address Organization Details Last Updated DateTime 9 156.21 cm 31.5 kg/m2 41824.5 5 g 60 /min 96 % 96 % 138 mm[Hg] 72 mm[Hg] Kanchan Florez [facility] 9 10:14:48 Social History Question Answer Notes LastModified by Ignit[employer] ion Details LastModified Time Tobacco Smoking Status Never Smoker Not Available [facility] 09/27/2020 03:36:24 What Was The Date Of Your Most Recent Tobacco Screening? 03/11/2019 [id number] Information not available 09/27/2020 Sex: Unknown Functional [...] 18 completed Jing Novak NP, S [address] [place], [address], [facility] 11/11/2018 09:58:00 Pneumococcal conjugate PCV 13 12/25/19 18 [facility] 11/11/2018 09:44:33 pneumococcal polysaccharide PPV23 01/20/20 19 completed February YEVGENIY Foreman [address] [place], [address], [facility] 07/22/2019 10:32:40 Influenza, split virus, quadrivalent, preservative 07/30/20 19 [facility] 08/05/2019 08:08:04 Td (adult) 07/26/20 14 completed Jing Novak NP, S [address] [place], [address], [facility] 07/07/2018 16:33:47 Past Encounters Encounter ID Performer Location Encounter Start Date Encounter Closed Date Diagnosis/Indication Diagnosis SNOMED-CT Code Diagnosis ICD10 Code Diagnosis Note [id number] [facility] [place] [facility] [address],[place] [address] 04/16/2018 09:37:41 04/16/2018 12:55:31 Essential hypertension 24424414 I10 stable Pre-existi ng type 2 diabetes mellitus 215485974 E11.9 try to check home blood sugars Ulcerative colitis 16527 004 K51.90 trialing off Lialda r/t expense Hypercholesterolemia 136 29145 E78.00 recheck labs prior to next visit Rheumatoid arthritis 698 12794 M06.9 asymptomat ic [id number] Chidi Crawford [facility] [address] [place] [address],[place] [address] 07/23/2018 09:39:16 07/23/2018 17:12:10 Essential hypertension 01066389 I10 stable Hypercholesterolemia 136 86712 E78.00 follow ldl 121, on simvastati n Impaired f asting glycemia 633035268 R73.01 A1C 6.3 Ulcerative colitis 40125 004 K51.90 trialing off Lialda r/t expense Rheumatoid arthritis 698 75289 M06.[place] [id number] Chidi JohansenPepe Crawford, [facility] [address] [facility], [place] [address] 11/11/2018 09:33:44 11/14/2018 11:17:40 Impaired fasting glycemia 165753336 R73.01 A1C 6.3 Hypercholesterolemia 136 65968 E78.00 RR > 3.5 Essential hypertension 08718501 I10 stable Ulcerative colitis 65971 004 K51.90 trialing off Lialda r/t expense Rheumatoid arthritis 698 26363 M06.9 asymptomat ic- no meds [id number] [facility] [place] [facility] [address] [facility], [place] [address] 03/11/2019 09:40:22 03/11/2019 16:41:57 Hypercholesterolemia 10643800 E78.00 to try 30 mg Impaired f asting glycemia 918123638 R73.01 A1C 6.8, discussed Essential hypertension 77362528 I10 stable Ulcerative colitis 73491 004 K51.90 remains off Lialda r/t expense Rheumatoid arthritis 698 07496 M06.9 [place]- [place]s [id number] [facility] [place] [facility] [address] [facility], [place] [address] 07/22/2019 10:01:31 07/22/2019 10:57:47 Hypercholesterolemia 14636518 E78.00 pt reluctant to go up to 40 mg of simvastati n, will change to atorvastat in 20 mg wants to finish off the simvastati n 30 mg qd Impaired f asting glycemia 086826834 R73.01 stable at 6.8 Essential hypertension 17675561 I10 stable Ulcerative colitis 84584 004 K51.90 in remission Rheumatoid arthritis 698 19747 M06.9 quiet Health Concerns Section Related Observation LastModified by Organization Detai ls LastModified Time None Recorded Concern Status LastModified by Organization Details LastModified Time None Recorded Advance Directives Directive None Recorded Payers Encounter Date Sequence Insurance Name Policy Number Policy Girard Covered Member ID Girard Member ID Guarantor Name 04/16/2018 2 [place] [id number] Susan J [place] [id number] Susan Mars [place] 04/16/2018 1 [place] Susan Mars [place] [id number] Susan Mars Flynn[place]erry 07/23/2018 2 [place] [id number] Susan Mars [place] [id number] Susan Mars Flynn[place]erry 07/23/2018 1 [place] Susan Mars [place] [id number] Susan Mars [place] 11/11/2018 2 [place] [id number] Susan Mars Payne [id number] Susan Mars [place] 11/11/2018 1 [place] Susan Mars Payne [id number] Susan Mars [place] 03/11/2019 2 [place] [id number] Susan Mars Payne [id number] Susan Mars [place] 03/11/2019 1 [place] Susan Mars Payne [id number] Susan Mars [place] 07/22/2019 2 [place] [id number] Susan Mars Payne [id number] Susan Mars FlynnKerry 07/22/2019 1 [place] Susanpatricia Payne [id number] Susanpatricia Payne Notes Date Note Type Note Provider Name a nd Address Organization Details Recorded Time 04/16/2018 text/html Feels well Tryin g to wean off Lialda, drinking lucia water and taking tumeric, follows with Dr. 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 Feels good Has been careful with diet, rare red meat, limits carbohydrates continues to be off lialda, no recent ulcerative colitis flares Joints feel good Not walking as much 2nd heat, but plans to increase Jing Novak NP, S [address] [place], [address], [facility] 07/23/2018 11:30:57 11/11/2018 text/html Routine appt Fee ls well, no concerns Maintains self off RA and Crohns medications Walks dogs daily without difficulty Jing Novak NP, S [address] [place] [address], [address], [facility] 11/11/2018 10:23:57 03/11/2019 text/html Routine appt did not change simvastatin to 40 mg, worried about myalgias Has colonoscopy scheduled this summer w/ Dr. Shaffer remains off lialda feels well Jing Novak NP, S [address] [place] [address], [address], [facility] 03/11/2019 11:18:04 07/22/2019 [...] rashes, or nail changes. YEVGENIY Ellington [address] [place], [address], [facility] 07/22/2019 10:36:32 OBGyn Episode No OBEpisode recorded.
== END 2025-04-16 10:42 | disposition home or self-care (01) ==
LOC: HO.HMCC 09:12
PROVIDERS: PCP Internal Medicine; Visit Provider Internal Medicine
DX: E11.9 Type 2 diabetes mellitus without complications (principal); E78.5 Hyperlipidemia, unspecified; I10 Essential (primary) hypertension; E04.2 Nontoxic multinodular goiter; F41.9 Anxiety disorder, unspecified; Z23 Encounter for immunization

== ENCOUNTER → 2025-04-16 09:12 | Outpatient (BNVA) | payer MEDICARE, SELFPAY | PROVIDERS: PCP Internal Medicine; Visit Provider Internal Medicine | DX: Z23 Encounter for immunization (principal); E11.9 Type 2 diabetes mellitus without complications; E78.5 Hyperlipidemia, unspecified; E04.2 Nontoxic multinodular goiter; F41.9 Anxiety disorder, unspecified; I10 Essential (primary) hypertension | CPT/HCPCS: 90471; 90677; 96127; 99212 ==

== ENCOUNTER 2025-07-02 06:48 | Day surgery (SDC) | payer MEDICARE, SELFPAY ==
--- OUTSIDE RECORDS SUMMARY | 2025-05-20 08:37 | XMS_ITS | Data Portability ---
Author Organization [facility] Telehealth Patient Home Address [address] [place] [address] Assessment No assessment recorded. Plan of Treatment [...] tablet 2018 019 INTERFACE [id number], [address] [place], [address], 9 10:34:32 simvastati n 10 mg tablet 2018 019 INTERFACE [id number], [address] [place], [address], 9 10:04:58 simvastati n 20 mg tablet 2018 019 INTERFACE [id number], [address] [place], [address], 9 10:04:58 Patient TargetsNo targets recorded. Patient Instructions Encounter Date Encounter Id Patient Instructions Last Modified By Organization Details Last Modified Time 07/23/2018 [id number] Continue healthy diet jeffery Not available 07/23/2018 11:27:53 walk regularly jeffery Not available 0 07/23/2018 11:28:12 11/11/2018 [id number] F/U 4 months, sooner prn Discuss healthy dietary choices and portion sizes. Lean protein, less processed foods Review cardiovascular exercise 1/2 hour 5 days week (walk, swim, bike etc), may break up into three 10 minute segments Discuss risks diabetes, associated with sedentary lifestyle jeffery Not available 11/11/2018 10:23:41 jakelisandro Not available 2017 10:23:00 07/22/2019 [id number] prediabetes: car e instructions Not available 07/22/2019 10:34:30 ulcerative colitis: care instructions Not available 07/22/2019 10:34:30 high blood pressure: care instructions Not available 07/22/2019 10:34:30 learning about high blood pressure Not available 07/22/2019 10:34:30 rheumatoid arthritis diet: care instructions Not available 07/22/2019 10:34:30 Rheumatoid Arthritis (RA): Care Instructions Not available 07/22/2019 10:34:30 Reason for Referral None Reported. Results Created Date Observation Date Name Description Value Unit Range Abnormal Flag Note LastModifiedBy Organization Detail LastModifiedTime 05/30/20 18 MAMMsohan Devi, bilat eral No observ ation record ed. [facility] [address] [place] [address], [address], 05/30/2018 13:54:19 06/08/20 19 06/05/2019 MAMMsohan Devi, bilat eral No observ ation record ed. [email or web address] [facility] (Medical Records) [address] [place] [address], [address], 06/08/2019 13:43:44 04/05/20 22 04/04/2022 MAMMO sohan, digit al, bilat eral No observ ation record ed. [email or web address] [facility] [address] [place], [address], 04/05/2022 10:04:34 Result Notes None recorded. Problems Name Problem SNOMED Code Status Onset Date Resolution Date Notes Provider Name and Address Organization Details Recorded Time Basal cell carcinoma of skin 303875902 Active 2008 Jing Novak NP, S [address] [place] [address], [phone], [facility] 8 16:35:23 Basal cell carcinoma of skin 888356882 Active 2008 Jing Novak NP, S [address] [place] [address], [address], [facility] 8 16:35:51 Impaired fasting glycemia 879665766 Active 2017 Jing Novak NP, S [address] [place] [address], [address], [facility] 8 13:01:20 Vitamin D deficiency 55824272 Active 2018 YEVGENIY Foreman [address] [place] [address], [phone], [facility] 9 10:22:21 Essential hypertensi on 41149217 Active 2017 [facility] 8 15:40:24 Hyperchole sterolemia 89383988 Active 2017 Liya terry [facility] 8 15:40:36 Ulcerative colitis 41653127 Active 2017 [facility] 8 15:40:51 Rheumatoid arthritis 09802563 Active 2017 [facility] 8 15:40:59 Kidney stone 10773186 Active 2017 [facility] 8 15:41:11 Problem Notes None recorded. Procedures Surgical History Date Name Laterality Status Provider Name and Address Organization Details Recorded Time 03/25/20 13 Colonoscopy completed Jing Novak NP, S [address] [place], [address], [facility] 07/07/2018 16:31:58 Total Hysterectomy completed Jing Novak NP, S [address] [place], [address], [facility] 07/07/2018 16:31:33 Imaging Results None recorded. Procedure Notes None recorded. Medical Equipment None Reported. Allergies Allergen ID Allergen Name Allergen Category Reaction Reaction Severity Criticality Documentation Date Start Date Code Code System Note Provider Name and Address Organization Details Recorded Time 1425 amoxicill in medicatio n Not available Not available Not available 04/15/2018 723 RxNorm Liya Rosario [facility] 8 15:40:15 Medications Name Sig Start [...] Updated DateTime 9 156.21 cm 31.2 kg/m2 76522.0 8 g 60 /min 98 % 98 % 128 mm[Hg] 80 mm[Hg] [facility] 9 09:53:07 Date Recorded Systolic blood pressure Diastolic blood pressure Provider Name and Address Organization Details Last Updated DateTime 04/16/2018 128 mm[Hg] 70 mm[Hg] Jing Novak NP, S [address] [place], [address] [place] 04/16/2018 10:03:07 Date Recorded Body weight Body mass index (BMI) Body height Heart rate Oxygen saturation Oxygen saturation in Arterial blood by Pulse oximetry Systolic blood pressure Diastolic blood pressure Provider Name and Address Organization Details Last Updated DateTime 8 82211.7 6 g 30.2 kg/m2 156.21 cm 56 /min 96 % 96 % 132 mm[Hg] 76 mm[Hg] [facility] 8 09:45:36 Date Recorded Body height Body mass index (BMI) Body weight Heart rate Oxygen saturation Oxygen saturation in Arterial blood by Pulse oximetry Systolic blood pressure Diastolic blood pressure Provider Name and Address Organization Details Last Updated DateTime 9 156.21 cm 31.5 kg/m2 20301.5 5 g 60 /min 96 % 96 % 138 mm[Hg] 72 mm[Hg] Kanchan Florez [facility] 9 10:14:48 Date Recorded Body height Body mass index (BMI) Body weight Heart rate Oxygen saturation Oxygen saturation in Arterial blood by Pulse oximetry Systolic blood pressure Diastolic blood pressure Provider Name and Address Organization Details Last Updated DateTime 8 156.21 cm 30.1 kg/m2 15341.2 5 g 52 /min 96 % 96 % 124 mm[Hg] 72 mm[Hg] [facility] 8 10:08:50 Date Recorded Body height Body mass index (BMI) Body weight Heart rate Oxygen saturation Oxygen saturation in Arterial blood by Pulse oximetry Systolic blood pressure Diastolic blood pressure Provider Name and Address Organization Details Last Updated DateTime 8 156.21 cm 30.9 kg/m2 11041.3 3 g 61 /min 96 % 96 % 126 mm[Hg] 76 mm[Hg] Liya Rosario [facility] 8 09:43:47 Social History Question Answer Notes LastModified by Organizat ion Details LastModified Time Tobacco Smoking Status Never Smoker Not Available [facility] 09/27/2020 03:36:24 What Was The Date Of Your Most Recent Tobacco Screening? 03/11/2019 [id number] Information not available 09/27/2020 Sex: Unknown Functional [...] 18 completed Jing Novak NP, S [address] [place], [address], [facility] 11/11/2018 09:58:00 Pneumococcal conjugate PCV 13 12/25/19 18 completed Liya terry [facility] 11/11/2018 09:44:33 pneumococcal polysaccharide PPV23 01/20/20 19 completed YEVGENIY Ellington [address] [place], [address], [facility] 07/22/2019 10:32:40 Influenza, split virus, quadrivalent, preservative 07/30/20 19 [facility] [place] 08/05/2019 08:08:04 Td (adult) 07/26/20 14 completed Jing Novak NP, S [address] [place], [address], [facility] 07/07/2018 16:33:47 Past Encounters Encounter ID Performer Location Encounter Start Date Encounter Closed Date Diagnosis/Indication Diagnosis SNOMED-CT Code Diagnosis ICD10 Code Diagnosis Note [id number] Chdii Crawford [facility] [address] [facility],[place] [address] 04/16/2018 09:37:41 04/16/2018 12:55:31 Essential hypertension 68593316 I10 stable Pre-existi ng type 2 diabetes mellitus 807291589 E11.9 try to check home blood sugars Ulcerative colitis 26878 004 K51.90 trialing off Lialda r/t expense Hypercholesterolemia 136 29635 E78.00 recheck labs prior to next visit Rheumatoid arthritis 698 67208 M06.9 asymptomat ic [id number] Chidi Crawford [facility] Internal Medicine [address],[place] [address] 07/23/2018 09:39:16 07/23/2018 17:12:10 Essential hypertension 22637142 I10 stable Hypercholesterolemia 136 39462 E78.00 follow ldl 121, on simvastati n Impaired f asting glycemia 862617774 R73.01 A1C 6.3 Ulcerative colitis 82984 004 K51.90 trialing off Lialda r/t expense Rheumatoid arthritis 698 01647 M06.[place] [id number] Chidi Crawford [facility] Internal Medicine [address] [facility],[place] [address] 11/11/2018 09:33:44 11/14/2018 11:17:40 Impaired fasting glycemia 060615152 R73.01 A1C 6.3 Hypercholesterolemia 136 50034 E78.00 RR > 3.5 Essential hypertension 33001953 I10 stable Ulcerative colitis 58263 004 K51.90 trialing off Lialda r/t expense Rheumatoid arthritis 698 86765 M06.9 asymptomat ic- no meds [id number] Chidi Crawford [facility] Internal Medicine [address],[place] [address] 03/11/2019 09:40:22 03/11/2019 16:41:57 Hypercholesterolemia 31526994 E78.00 to try 30 mg Impaired f asting glycemia 727991144 R73.01 A1C 6.8, discussed Essential hypertension 51022763 I10 stable Ulcerative colitis 92092 004 K51.90 remains off Lialda r/t expense Rheumatoid arthritis 698 17209 M06.9 asymptomat ic- no meds [id number] Chidi Crawford [facility] Internal Medicine [address] [facility],[place] [address] 07/22/2019 10:01:31 07/22/2019 10:57:47 Hypercholesterolemia 36711143 E78.00 pt reluctant to go up to 40 mg of simvastati n, will change to atorvastat in 20 mg wants to finish off the simvastati n 30 mg qd Impaired f asting glycemia 608415278 R73.01 stable at 6.8 Essential hypertension 98639512 I10 stable Ulcerative colitis 79932 004 K51.90 in remission Rheumatoid arthritis 698 54884 M06.9 quiet Health Concerns Section Related Observation LastModified by Organization Detai ls LastModified Time None Recorded Concern Status LastModified by Organization Details LastModified Time None Recorded Advance Directives Directive None Recorded Payers Insurance Date Sequence Insurance Name Policy Number Policy Girard Covered Member ID Girard Member ID Guarantor Name 11/06/2024 2 [place] [id number] [address] [id number] Susan [address] 11/06/2024 1 [place] [employer] Susan [address] [id number] Susan [address] Notes Date Note Type Note Provider Name a nd Address Organization Details Recorded Time 04/16/2018 text/html Feels well Tryin g to wean off Lialda, drinking lucia water and taking tumeric, follows with Dr. 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 Feels good Has been careful with diet, rare red meat, limits carbohydrates continues to be off lialda, no recent ulcerative colitis flares Joints feel good Not walking as much 2nd heat, but plans to increase Jing Novak NP, S [address] [place], [address], [facility] 07/23/2018 11:30:57 11/11/2018 text/html Routine appt Fee ls well, no concerns Maintains self off RA and Crohns medications Walks dogs daily without difficulty Jing Novak NP, S [address] [place], [address], [facility] 11/11/2018 10:23:57 03/11/2019 text/html Routine appt did not change simvastatin to 40 mg, worried about myalgias Has colonoscopy scheduled this summer w/ Dr. Shaffer remains off lialda feels well Jing Novak NP, S [address] [place], [address], [facility] 03/11/2019 11:18:04 07/22/2019 text/html cholesterol [...] rashes, or nail changes. YEVGENIY Ellington [address] [place], [address], [facility] 07/22/2019 10:36:32 OBGyn Episode No OBEpisode recorded.
[2025-06-29 15:15] VITALS: BMI 29.9
--- NOTE | 2025-07-01 10:02 | HO.ANESPROP2 ---
Documented by User: Krista Massey NP 07/01/25 10:03 HPI - Anesthesia Eval Consult details Narrative: 79yo F for Colonoscopy PMFSH Active Problems Active Problems: All Active Problems Anxiety (Acute) Microscopic hematuria (Acute) COVID-19 (Acute) Annual physical exam (Acute) Nephrolithiasis (Acute) Paronychia of finger (Acute) Multinodular goiter (Acute) Foot pain, right (Acute) Mammogram normal (Acute) HTN (hypertension) (Acute) Hyperlipidemia (Acute) DM type 2 (diabetes mellitus, type 2) (Acute) Past Medical History Medical History (Updated 07/02/25 @ 07:59 by Aidee Mar RN) Anxiety Ulcerative colitis Multinodular goiter Squamous cell carcinoma of left lower leg History of ulcerative colitis History of kidney stones Basal cell carcinoma Mammogram normal HTN (hypertension) Hyperlipidemia DM type 2 (diabetes mellitus, type 2) Family History Family History Father Hypertension Heart disease Colon cancer Mother Hypertension Diabetes Heart disease Other Substance use disorder Family history of problems with anesthesia: No Surgical History Surgical History Hx of hysterectomy Hx of colonoscopy History of Problems with Anesthesia: No Social History Social History Housing: House Patient Tobacco Use Status: Never used Tobacco e-Cigarette/Vaping Use: Never Used Second Hand Smoke Exposure: Yes Use of substances other than those prescribed or required for medical reasons: No Are you DNR?: No Advance Directives: No Advance Directives Information Provided: Yes Advance Directives Date on File: 09/06/21 service: No Current occupational status: retired Current occupational exposures/hazards: No Cognitive needs: No Hearing needs: No Vision needs: No Meds Allergies Allergy/AdvReac Type Severity Reaction Status Date / Time amoxicillin (AMOXICILLIN) Allergy Intermediate RASH Verified 07/02/25 07:25 Home Medications ?Medication ?Instructions ?Recorded ?Confirmed ?Last Taken ?Type yopkcqoi-osgrbiz-ftmx-lutein tablet 1 tab PO DAILY 10/23/21 07/02/25 Unknown History cholecalciferol (vitamin D3) 25 25 mcg PO DAILY 02/15/25 07/02/25 Unknown History mcg (1,000 unit) tablet Exam Height,Weight and Vital Signs: Height 5 ft 1 in Weight 71.668 kg Assessment and Plan Assessment Anesthesia Assessment: Chart Reviewed Final Anesthetic Review Family History of Problems with Anesthesia: No History of Problems with Anesthesia: No Documented by User: Napoleon Seth MD 07/02/25 08:36 [facility] Past Medical History Medical History (Updated 07/02/25 @ 07:59 by Aidee Mar, RN) Anxiety Ulcerative colitis Multinodular goiter Squamous cell carcinoma of left lower leg History of ulcerative colitis History of kidney stones Basal cell carcinoma Mammogram normal HTN (hypertension) Hyperlipidemia DM type 2 (diabetes mellitus, type 2) Family History Family History Father Hypertension Heart disease Colon cancer Mother Hypertension Diabetes Heart disease Other Substance use disorder Surgical History Surgical History Hx of hysterectomy Hx of colonoscopy Social History Social History Housing: House Patient Tobacco Use Status: Never used Tobacco e-Cigarette/Vaping Use: Never Used Second Hand Smoke Exposure: Yes Use of substances other than those prescribed or required for medical reasons: No Are you DNR?: No Advance Directives: No Advance Directives Information Provided: Yes Advance Directives Date on File: 09/06/21 service: No Current occupational status: retired Current occupational exposures/hazards: No Cognitive needs: No Hearing needs: No Vision needs: No Meds Allergies Allergy/AdvReac Type Severity Reaction Status Date / Time amoxicillin (AMOXICILLIN) Allergy Intermediate RASH Verified 07/02/25 07:25 Home Medications ?Medication ?Instructions ?Recorded ?Confirmed ?Last Taken ?Type tircsxgk-ymbxcdg-zxjq-lutein tablet 1 tab PO DAILY 10/23/21 07/02/25 Unknown History cholecalciferol (vitamin D3) 25 25 mcg PO DAILY 02/15/25 07/02/25 Unknown History mcg (1,000 unit) tablet Exam Airway Mallampati Class: II TM Dist: >3cm Neck ROM: Full Loose/Missing/Broken Teeth: No Heart: ok Lungs: ok Assessment and Plan Assessment Anesthesia Assessment: Anesthesia Plan Discussed Final Anesthetic Review NPO: Yes ASA Class: III Final Preanesthetic Review: No Changes in Pt Med Stat, Meds/Allgs Chart Reviewed, Consent Obtained/Reviewed and Anes Risks/Benef Reviewed Patient Risk: Intermediate Procedure Risk: Low Anesthetic Plan Anesthetic Plan: MAC: and Agree w/ Assess. and Plan Disposition: Standard PACU
--- NOTE | 2025-07-02 07:12 | MHC.SHP ---
Pre-Procedural Eval Section A - 24 Hr Update-Section A only Date of Service: 07/02/25 The patient is an INPATIENT: No The patient has been examined within 24 hours of the surgical procedure. The History & Physical has been completed within 30 days and I have reviewed it.: No Section B - Complete if H&P > 30 days Chief Complaint: Ulcerative colitis surveillance Relevant Family History (Specify if Yes): Yes Relevant Social History: None Present Medications: see Short Stay Collaborative assessment Medical History: Significant History (History of ulcerative colitis History of kidney stones Basal cell carcinoma Foot pain, right Mammogram normal HTN (hypertension) Hyperlipidemia DM type 2 (diabetes mellitus, type 2)) History of Previous Operations: Relevant previous surgery/procedure and date(s) (History of a colonoscopy, history of hysterectomy) Allergies: Allergies Allergy/AdvReac Type Severity Reaction Status Date / Time amoxicillin (AMOXICILLIN) Allergy Intermediate RASH Verified 04/16/25 09:25 Review of Systems Sugical H&P ROS: Negative: Constitution, Cardiovascular, Respiratory and Gastrointestinal Exam Surgical H&P Exam: Normal: Heart, Normal: Lungs, Normal: Extremities and Normal: Abdomen Plan Diagnosis/Plan: Unchanged I have reviewed the history and physical and performed a pertinent physical examination on my patient. No changes have occurred unless specified. Time Spent With Patient Time: Total time managing care of this patient today ____ minutes.
[2025-07-02 07:29] VITALS: BMI 28.3
[2025-07-02 07:41] VITALS: BP 128/58; PULSE 48; RESP 15; TEMP 36.2; O2SAT 97
[2025-07-02] MEDS: Lactated Ringers 1,000 ML 100 ML IVCONT (07:54)
[2025-07-02 07:59] LABS: Glucose, Whole Blood 142 mg/dL (60-115)
--- NOTE | 2025-07-02 09:28 | HO.OPN-COLON ---
Colonoscopy Operative Note Operative Note Date of Service: 07/02/25 Narrative: COLONOSCOPY TILL CECUM WITH CHROMO ENDOSCOPY, BIOPSIES AND SNARE POLYPECTOMY Pre-op diagnosis: Surveillance for ulcerative colitis. Post-op diagnosis:? Colon polyps, inactive ulcerative colitis, Diverticulosis, hemorrhoids Endoscopist:? Hannah Herrera MD Anesthesia:?MAC Consent: Indications for the procedure and potential complications of bleeding, perforation, reaction to medications and missed diagnosis were discussed with the patient and informed consent was obtained. Instrument: Olympus PCF H 190 L variable stiffness pediatric colonoscope Monitoring: Vital signs and clinical assessment, intermittent blood pressure monitoring, continuous EKG monitoring, Pulse oximetry and Carbon Dioxide monitoring were done throughout the procedure. Please see anesthesia flowsheet. Colon withdrawl time was 25 minutes. Procedure: The patient was placed in the left lateral decubitis position and pre-procedure medications were administered. After a digital rectal examination of the ano-rectum, the video colonoscope was inserted into the rectum and advanced through the colon to the cecum. The colonoscope was slowly withdrawn in a retrograde panoramic fashion and the colon mucosa was carefully examined including a retroflexed view of the rectum. Findings and interventions are described below. Procedure Difficulty: without difficulty Findings: Terminal Ileum: Not evaluated Cecum: Normal - random biopsies were obtained Ascending Colon:? Normal - random biopsies were obtained Transverse Colon:? Normal - random biopsies were obtained Descending Colon:? Inactive colitis with multiple 5 mm to 1 cms pseudopolyps. Sigmoid Colon:? Inactive colitis with multiple 5 mm to 1 cms pseudopolyps - two 8-10 mm polyps were removed. Moderate diverticulosis Rectum:? Inactive colitis with multiple 5 mm to 1 cms pseudopolyps. An 8 mm sessile polyp was removed with a cold snare. Some bleeding noted from the polypectomy site controlled with application of 1 hemoclip. Ano-rectum:? Small internal hemorrhoids Colon preparation:? Good after some irrigation Colon preparation: Good after some irrigation. [place] Bowel Preparation Scale Right colon; 2 Transverse colon: 2 Left colon; 2 (0 = Unprepared colon segment with mucosa not seen due to solid stool that cannot be cleared. 1 = Portion of mucosa of the colon segment seen, but other areas of the colon segment not well seen due to staining, residual stool and/or opaque liquid. 2 = Minor amount of residual staining, small fragments of stool and/or opaque liquid, but mucosa of colon segment seen well. 3 = Entire mucosa of colon segment seen well with no residual staining, small fragments of stool or opaque liquid) Impression and Post Procedure Diagnosis: Colonoscopy Findings: Four small to medium sized polyps were removed Colonic mucosa examined with chromo-endoscopy. Biopsies obtained from the colon to check for dysplasia Moderate diverticulosis seen in the sigmoid colon small hemorrhoids on retroflexed exam. Plan: Pt to schedule a FU appointment with Dr Herrera Repeat Colonoscopy in 1 - 2 years if pt remains in stable health or pt may elect to have colonoscopies due to advanced age. Above findings were reviewed with the patient and relevant handouts were given and the discharge area. BIOPSIES SHOWED: A. Colon, ascending, polyp: Tubular adenoma; negative for high-grade dysplasia and carcinoma (see comment). B. Colon, ascending, biopsy: Colonic mucosa with minor crypt distortion, otherwise no specific change; no colitis, granulomas or dysplasia. C. Colon, transverse, biopsy: Colonic mucosa with no specific change; no colitis, granulomas or dysplasia. D. Colon, descending, biopsy: Colonic mucosa with no specific change; no colitis, granulomas or dysplasia. E. Colon, sigmoid, biopsy: Colonic mucosa with minor crypt distortion, otherwise no specific change; no colitis, granulomas or dysplasia. F. Colon, sigmoid, 2 polyps: Tubular adenoma (1 piece); negative for high-grade dysplasia and carcinoma, and polypoid colonic mucosa with minimal hyperplastic changes (see comment). G. Colon, rectum, biopsy: Colonic mucosa with minor crypt distortion; no colitis/proctitis, granulomas or dysplasia. H. Colon, rectal polyp: Tubular adenoma; negative for high-grade dysplasia and carcinoma (see comment). Comment: (A, F and H): These were endoscopically identified as polyps , and likely represent sporadic adenomas. IBD-associated polypoid dysplasia cannot be excluded and endoscopic follow-up is warranted Letter sent to the patient with biopsy results. Patient was placed on the colonoscopy recall list for repeat colonoscopy in 1 year.
[2025-07-02 09:30] VITALS: BP 104/52; PULSE 55; RESP 20; TEMP 36.1; O2SAT 95
[2025-07-02 09:45] VITALS: BP 106/52; PULSE 45; RESP 16; TEMP 36.1; O2SAT 99
== END 2025-07-02 10:14 | disposition home or self-care (01) ==
PROVIDERS: PCP Internal Medicine; Visit Provider Internal Medicine Gastroenterology
PROC: 0DJD8ZZ Inspection of Lower Intestinal Tract, Via Natural or Artificial Opening Endoscopic (ICD-10-PCS; CPT 45378; principal; 2025-07-02 08:30)
DX: K51.90 Ulcerative colitis, unspecified, without complications (principal); Z80.0 Family history of malignant neoplasm of digestive organs; D12.2 Benign neoplasm of ascending colon; D12.5 Benign neoplasm of sigmoid colon; D12.8 Benign neoplasm of rectum; K51.419 Inflammatory polyps of colon with unspecified complications; K57.30 Diverticulosis of large intestine without perforation or abscess without bleeding; K64.8 Other hemorrhoids; R63.4 Abnormal weight loss; R19.7 Diarrhea, unspecified; Z68.29 Body mass index [BMI] 29.0-29.9, adult; I10 Essential (primary) hypertension; E78.5 Hyperlipidemia, unspecified; E11.9 Type 2 diabetes mellitus without complications; Z85.828 Personal history of other malignant neoplasm of skin; Z79.84 Long term (current) use of oral hypoglycemic drugs; Z79.899 Other long term (current) drug therapy; Z88.1 Allergy status to other antibiotic agents; Z87.442 Personal history of urinary calculi
CPT/HCPCS: 45385; 45380; 82947; 88305; J2003; J2704; Q9968

== ENCOUNTER → 2025-07-02 06:48 | Outpatient (BNV) | payer MEDICARE, SELFPAY | PROVIDERS: PCP Internal Medicine; Visit Provider Internal Medicine Gastroenterology | DX: K52.9 Noninfective gastroenteritis and colitis, unspecified (principal); D12.5 Benign neoplasm of sigmoid colon; K64.8 Other hemorrhoids; D12.8 Benign neoplasm of rectum | CPT/HCPCS: 45380; 45385; 45399 ==

== ENCOUNTER 2025-07-13 08:20 | Outpatient (REF) | payer MEDICARE, SELFPAY ==
--- OUTSIDE RECORDS SUMMARY | 2025-07-13 09:00 | XMS_ITS | Patient Health Record ---
[facility] Address [address] [place] [address] Care Team Providers Care Rivet Maker Name Role Phone Catalina Saldivar MD Primary Care Provider Qi Leyva Unavailable [phone] Allergies Allergen (clinical drug ingredient) Drug/Non Drug Allergy documented on EMR Reaction Allergy Type Onset Date Status amoxicillin Amoxicillin rash,hives Drug Allergy Ac tive Reason For Referral No Information Medications Medication SIG (Take, Route, Frequency, Duration) Notes Start Date End Date Status Atorvastatin Calcium 20 MG 1 tablet Oral ly Once a day; Duration: 30 day(s) Active Atenolol 25 MG 1 tablet Orally Once a day; Duration: 30 day(s) Active Lisinopril 5 MG 1 tablet Orally Once a day; Duration: 30 day(s) Active Turmeric Curcumin 500 MG as directed Orally Active metFORMIN HCl 500 MG as directed Orally three times a day Active Neurontin 300 MG 1 capsule Orally Onc e a day at night; Duration: 90 days Active Vitamin D3 Active Immunizations Vaccine Route Administration Date Status Comme nts Influenza Unknown 08/07/2021 Administered COVID-19 Pfizer BioNTech Vaccine Unknown 10/06/2021 Administered First Dose:02/21/2021 Second Dose: 03/15/2021 Social History Tobacco Use: Social History Observation [...] Problem Status W/U Status Risk Notes Problem Neuropathy (386426100) Neuropathy (G62.9) Active confirmed Problem Polyneuropathy due to type 2 diabetes mellitus (125330252) Type 2 diabetes mellitus with polyneuropathy (E11.42) Active confirmed Problem Localized, primary osteoarthritis of the ankle and/or foot (860024941) Osteoarthritis of right ankle and foot (M19.071) Active confirmed Plan Of Treatment Pending Test Test Name Order Date X ray : Foot, right 3V 08/11/2021 Insurance Providers Payer Name Payer Address Payer Phone Subscriber Number Group Number Insured Name Patient Relationship to Insured Coverage Start Date Coverage End Date Medicare National Gov[employer] Sv[employer] [address] [place] [address] [id number] Susan Payne Self - patient is the insured [employer] [address] [place] [address] [id number] Susan Payne Self - patient is the insured Medical (General) History Medical History History ICD Code Skin cancer Crohns disease type II diabetes High blood pressure Colitis Chicken pox Surgical History Surgery Date(Month/Year) hysterectomy wisdom teeth extraction colonoscopy
[2025-07-13 10:04] LABS: MANUAL DIFF FLAG NO
[2025-07-13 10:16] LABS: Hematocrit 39.7 % (37.0-47.0); Hemoglobin 12.8 g/dl (12.0-16.0); Imm Gran Abs Auto 0.02 X10*3/uL (0.00-0.03); Imm Gran Pct Auto 0.3 % (0.0-0.4); Lymphocytes Absolute Auto 2.0 X10*3/uL (1.2-4.9); Mean Corpuscular HGB Conc 32.2 g/dl (31.0-35.0); Mean Corpuscular Hemoglobin 28.9 pg (27.0-33.0); Mean Corpuscular Volume 89.6 fL (80.0-98.0); NRBC Abs Auto 0.000 X10*3/uL (0.0-0.012); NRBC Pct Auto 0.0 /100WBC (0.0-0.2); Platelet Count 174 X10*3/uL (160-400); Red Blood Count 4.43 X10*6/uL (4.20-5.50); White Blood Count 6.4 X10*3/uL (4.8-10.8)
[2025-07-13 10:26] LABS: Hemoglobin A1C 157.8702 umol/L; Total Hemoglobin (HGBA1C) 3309.9414 umol/L
[2025-07-13 10:37] LABS: Alanine Aminotransferase 13 U/L (0-31); Albumin Level 4.4 g/dL (3.5-5.0); Alkaline Phosphatase 73 U/L (39-117); Anion Gap 13 (12-20); Aspartate Amino Transferase 20 U/L (5-31); Blood Urea Nitrogen 22 mg/dL (9-16); Calcium 9.2 mg/dL (8.4-10.2); Carbon Dioxide 27 mmol/L (22-29); Chloride 105 mmol/L (96-108); Cholesterol 156 mg/dL (<200); Estimated Glomerular Filt Rate 54; HDL Cholesterol 46 mg/dL (>40); Potassium 4.2 mmol/L (3.3-5.1); Sodium 141 mmol/L (135-145); Total Protein 7.0 g/dL (6.5-8.0); Triglycerides 112 mg/dL (<150)
[2025-07-13 11:49] LABS: Microalbum/Creatinine Ratio Ur 7.6 ug/mg cr (<30)
== END 2025-07-13 08:21 | disposition home or self-care (01) ==
LOC: HO.HMGCLDS 08:20
PROVIDERS: PCP Internal Medicine; Visit Provider Internal Medicine
DX: I10 Essential (primary) hypertension (principal); E11.9 Type 2 diabetes mellitus without complications; E78.5 Hyperlipidemia, unspecified
CPT/HCPCS: 36415; 80053; 80061; 82043; 82570; 83036; 85025

== ENCOUNTER 2025-07-20 09:13 | Outpatient (AMB) | payer MEDICARE, SELFPAY ==
--- OUTSIDE RECORDS SUMMARY | 2025-07-20 09:36 | XMS_ITS | Patient Health Record ---
[facility] Address [address] [place] [address] Care Team Providers Care Lamp Cleaner Name Role Phone Catalina Saldivar MD Primary Care Provider Qi Leyva Unavailable [phone] Allergies Allergen (clinical drug ingredient) Drug/Non Drug [...] Status W/U Status Risk Notes Problem Neuropathy (557764357) Neuropathy (G62.9) Active confirmed Problem Polyneuropathy due to type 2 diabetes mellitus (402277869) Type 2 diabetes mellitus with polyneuropathy (E11.42) Active confirmed Problem Localized, primary osteoarthritis of the ankle and/or foot (520332368) Osteoarthritis of right ankle and foot (M19.071) Active confirmed Plan Of Treatment Pending Test Test Name Order Date X ray : Foot, right 3V 08/11/2021 Insurance Providers Payer Name Payer Address Payer Phone Subscriber Number Group Number Insured Name Patient Relationship to Insured Coverage Start Date Coverage End Date Medicare National Govt Sv[employer] [address] [facility] [place] [address] [id number] Susan Payne Self - patient is the insured [employer] [address] [place] [address] [id number] Susan Payne Self - patient is the insured Medical (General) History Medical History History ICD Code Skin cancer Crohns disease type II diabetes High blood pressure Colitis Chicken pox Surgical History Surgery Date(Month/Year) hysterectomy wisdom teeth extraction colonoscopy
--- NOTE | 2025-07-20 10:16 | A.OFFPC_ITS ---
Vital Signs 07/20/25 10:17 Height 5 ft 1 in Weight 152 lb BMI 28.7 BP 116/64 Blood Pressure Location Lt brachial Position Sitting Respiration 15 Pulse 60 Pulse Source Pulse Oximeter Temp 98.2 F Temp Source Oral Pulse Oximetry (%) 96 Oxygen Delivery Method Room Air Intake Visit Reasons: 3 months follow up Intake Note: Pt is here today for her 3mo. f/u Allergies amoxicillin (AMOXICILLIN) Allergy (Intermediate, Verified 07/20/25 10:19) RASH Medication List - Last Reconciled 07/20/25 by Catalina Saldivar MD atenolol 25 mg PO DAILY atorvastatin 20 mg PO DAILY blood sugar diagnostic ([email or web address] Ultra Test strips) test glucose once a day blood-glucose meter ([email or web address] Ultra2 Meter kit) As directed blood-glucose meter ([email or web address] Ultra2 Meter) As directed cholecalciferol (vitamin D3) 25 mcg PO DAILY lancets ([employer] Delica Plus Lancet) Test daily lancing device with lancets (Desk[employer] Delica Lancing Device kit) test one a day lisinopril 5 mg PO DAILY metformin ER 1,000 mg (2 x 500 mg) PO DAILY tymdwjbe-thfnlfh-yjnd-lutein 1 tab PO DAILY sertraline 25 mg PO DAILY sulfasalazine 500 mg PO BID 90 days Tobacco use date assessed: 07/20/25 Fall risk assessment: No Falls in past year Last assessed Fall Risk: 07/20/25 Dental Screening Dental Screen Date: 07/20/25 Did you have a dental visit in the last 12 months?: Yes Did you have a dental problem in the last 6 months where you did not have access to dental care?: Yes Was dental information given to patient?: Patient has dentist HPI 3 months follow up HPI Details Pt presents for f/u HTN, type 2 DM, hyperlipidemia chronic anxiety stable on current medications PFSH Medical History (Updated 07/20/25 @ 19:16 by Catalina Saldivar MD) Ulcerative colitis Anxiety Multinodular goiter Squamous cell carcinoma of left lower leg History of ulcerative colitis History of kidney stones Basal cell carcinoma Mammogram normal HTN (hypertension) Hyperlipidemia DM type 2 (diabetes mellitus, type 2) Surgical History Hx of hysterectomy Hx of colonoscopy Family History Father Hypertension Heart disease Colon cancer Mother Hypertension Diabetes Heart disease Other Substance use disorder Social History Housing: House Patient Tobacco Use Status: Never used Tobacco e-Cigarette/Vaping Use: Never Used Second Hand Smoke Exposure: Yes Advance Directives Date on File: 09/06/21 service: No Current occupational status: retired Current occupational exposures/hazards: No Cognitive needs: No Hearing needs: No Vision needs: No Questionnaire Thrive Questionnaire Date Thrive assessed: 04/16/25 I am a: Patient What is your living situation today?: I have a steady place to live Within the past 12 months, did the food you bought not last and you didn't have the money to get more?: I choose not to answer this question Within the past 12 months, did you worry whether your food would run out before you got money to buy more?: I choose not to answer this question Do you have trouble paying for medicines?: I choose not to answer this question Do you have trouble getting transportation to medical appointments?: I choose not to answer this question Do you have trouble paying your heating and electricity bill?: I choose not to answer this question Do you have trouble taking care of your child, family member or friend?: I choose not to answer this question Do you have trouble with day-to-day activities such as bathing, preparing meals, shopping, managing finances, etc.?: I choose not to answer this question Are you currently unemployed and looking for a job?: I choose not to answer this question Are you interested in more education?: I choose not to answer this question Please select the resources that you would like help with: None Currently or been in a relationship where the following occur: I choose not to answer THRIVE Score: 0 JORDY-7 AMB Questionnaire JORDY-7 Date JORDY - 7 assessed: 04/16/25 Source: Developed by Drs. Bernard Damon, Debra Gunn, Nicholas Garcia and colleagues, with an educational ivory from [employer] Review of Systems Const All systems reviewed & are unremarkable except as noted in HPI and below ENT Reports no additional complaints Card Reports no additional complaints Resp Reports no additional complaints GI Reports no additional complaints Reports no additional complaints Physical exam (Primary Care) Vital Signs: Last Vital Signs Temp 98.2 F 07/20/25 10:17 Pulse 60 07/20/25 10:17 Resp 15 07/20/25 10:17 BP 116/64 07/20/25 10:17 Pulse Ox 96 07/20/25 10:17 Oxygen Delivery Method Room Air 07/20/25 10:17 BMI result Body Mass Index 28.7 Tobacco/Smoking Status: Tobacco use Status Tobacco use date assessed 07/20/25 07/20/25 10:20 Patient Tobacco Use Status Never used Tobacco 07/20/25 10:20 e-Cigarette/Vaping Use Never Used 07/20/25 10:20 Thrive Assessment: Date of Thrive Assessment Date Thrive assessed 04/16/25 07/20/25 10:20 Currently or been in a relationship where the following occur: I choose not to answer Const General: no acute distress HENMT Head: Yes normal to inspection Eyes General: appearance normal, both eyes and all related structures Neck Neck: Yes no lymphadenopathy and Yes supple Resp Effort & Inspection: normal respiratory effort Auscultation: clear to auscultation bilaterally Cardio Rhythm: regular rhythm Heart sounds: S1 normal heart sound present and S2 normal heart sound present GI Inspection: Yes normal to inspection Palpation (GI): Soft to palpation Percussion: Yes normal to percussion Auscultation: normal bowel sounds Coding Level of Care Code Est Pt Level 4 (95722) Diagnoses DM type 2 (diabetes mellitus, type 2) E11.9 Hyperlipidemia E78.5 HTN (hypertension) I10 Anxiety F41.9 Ulcerative colitis K51.90 Assessment & Plan Assessment & Plan (1) DM type 2 (diabetes mellitus, type 2): Comment: diarrhea from Metformin 1000 mg , cannot afford Jardiance Code(s): E11.9 - Type 2 diabetes mellitus without complications Category: Medical Plan: A1C IS 6.5, ADA DIET INCREASE EXERCISE WEIGHT LOSS DISCUSSED WITH THE PATIENT CONTINUE CURRENT MEDICATIONS (2) Hyperlipidemia: Code(s): E78.5 - Hyperlipidemia, unspecified Category: Medical Plan: Continue statin (3) HTN (hypertension): Code(s): I10 - Essential (primary) hypertension Category: Medical Plan: Continue current medications (4) Anxiety: Code(s): F41.9 - Anxiety disorder, unspecified Category: Medical Plan: Continue sertraline (5) Ulcerative colitis: Comment: 02/2022 Colonoscopy showed inactive colitis with multiple 5 mm to 1 cms pseudopolyps. Patchy moderately active colitis from 25 to 35 cms - biopsies obtained. Surveillance biopsies obtained every 10 cm from the left colon. Pt was advised to start sulfasalazine 1 gram three times daily. Repeat colonoscopy 06/2025 2 polyps TA, inactive colitis Code(s): K51.90 - Ulcerative colitis, unspecified, without complications Category: Medical Plan: Follow-up with GI Dr. Herrera Orders: Orders Comprehensive Kiel. Panel Fast 3 Months E11.9 - Type 2 diabetes mellitus without complications, E78.5 - Hyperlipidemia, unspecified, I10 - Essential (primary) hypertension Complete Blood Count Auto Diff 3 Months E11.9 - Type 2 diabetes mellitus without complications, E78.5 - Hyperlipidemia, unspecified, I10 - Essential (primary) hypertension Hemoglobin A1c 3 Months E11.9 - Type 2 diabetes mellitus without complications, E78.5 - Hyperlipidemia, unspecified, I10 - Essential (primary) hypertension Microalbumin, Random (w Creat) 3 Months E11.9 - Type 2 diabetes mellitus without complications, E78.5 - Hyperlipidemia, unspecified, I10 - Essential (p rimary) hypertension Lipid Panel 3 Months E11.9 - Type 2 diabetes mellitus without complications, E78.5 - Hyperlipidemia, unspecified, I10 - Essential (primary) hypertension
[2025-07-20 10:17] VITALS: BP 116/64; PULSE 60; RESP 15; TEMP 36.8; O2SAT 96; BMI 28.7
== END 2025-07-20 10:45 | disposition home or self-care (01) ==
LOC: HO.HMCC 09:14
PROVIDERS: PCP Internal Medicine; Visit Provider Internal Medicine
DX: E11.69 Type 2 diabetes mellitus with other specified complication (principal); E78.5 Hyperlipidemia, unspecified; K51.90 Ulcerative colitis, unspecified, without complications; I10 Essential (primary) hypertension; F41.9 Anxiety disorder, unspecified

== ENCOUNTER → 2025-07-20 09:13 | Outpatient (BNVA) | payer MEDICARE, SELFPAY | PROVIDERS: PCP Internal Medicine; Visit Provider Internal Medicine | DX: E11.9 Type 2 diabetes mellitus without complications (principal); E78.5 Hyperlipidemia, unspecified; I10 Essential (primary) hypertension; F41.9 Anxiety disorder, unspecified; K51.90 Ulcerative colitis, unspecified, without complications | CPT/HCPCS: 99212 ==

== ENCOUNTER 2025-10-08 08:31 | Outpatient (REF) | payer MEDICARE, SELFPAY ==
--- OUTSIDE RECORDS SUMMARY | 2025-10-08 08:44 | XMS_ITS | Patient Health Record ---
[facility] Address [address] [place] [address] Care Team Providers Care Laborer Syrup Machine Name Role Phone Catalina Saldivar MD Primary Care Provider Qi Leyva Unavailable [phone] Allergies Allergen (clinical drug ingredient) Drug/Non Drug [...] Status W/U Status Risk Notes Problem Neuropathy (651882685) Neuropathy (G62.9) Active confirmed Problem Polyneuropathy due to type 2 diabetes mellitus (538122801) Type 2 diabetes mellitus with polyneuropathy (E11.42) Active confirmed Problem Localized, primary osteoarthritis of the ankle and/or foot (628095900) Osteoarthritis of right ankle and foot (M19.071) Active confirmed Plan Of Treatment Pending Test Test Name Order Date X ray : Foot, right 3V 08/11/2021 Insurance Providers Payer Name Payer Address Payer Phone Subscriber Number Group Number Insured Name Patient Relationship to Insured Coverage Start Date Coverage End Date Medicare National Govt Svcs Inc [address] [place] [address] [id number] Susan Payne Self - patient is the insured [employer] [address] [place] [address] [id number] Susan Payne Self - patient is the insured Medical (General) History Medical History History ICD Code Skin cancer Crohns disease type II diabetes High blood pressure Colitis Chicken pox Surgical History Surgery Date(Month/Year) hysterectomy wisdom teeth extraction colonoscopy
--- OUTSIDE RECORDS SUMMARY | 2025-10-08 08:44 | XMS_ITS | Data Portability ---
Author Organization [facility] Telehealth Patient Home Address [address] [place] [address] Assessment No assessment recorded. Plan of Treatment [...] tablet 2018 019 INTERFACE [id number], [address] [place], [address], 9 10:34:32 simvastati n 10 mg tablet 2018 019 INTERFACE [id number], [address] [place], [address], 9 10:04:58 simvastati n 20 mg tablet 2018 019 INTERFACE [id number], [address] [place], [address], 9 10:04:58 Patient TargetsNo targets recorded. Patient Instructions Encounter Date Encounter Id Patient Instructions Last Modified By Organization Details Last Modified Time 07/23/2018 [id number] Continue healthy diet jeffery Not available 07/23/2018 11:27:53 walk regularly jeffery Not available 0 07/23/2018 11:28:12 11/11/2018 [id number] F/U 4 months, sooner prn Discuss healthy dietary choices and portion sizes. Lean protein, less processed foods Review cardiovascular exercise 1/2 hour 5 days week (walk, swim, bike etc), may break up into three 10 minute segments Discuss risks diabetes, associated with sedentary lifestyle jeffery Not available 11/11/2018 10:23:41 jakelisandro Not available 2017 10:23:00 07/22/2019 [id number] prediabetes: car e instructions Not available 07/22/2019 [...] bilat eral No observ ation record ed. [facility] [address] [place] [address], [id number], 05/30/2018 13:54:19 06/08/20 19 06/05/2019 MAMMsohan Devi, bilat eral No observ ation record ed. [email or web address] [facility] (Medical Records) [address] [place] [address], [id number], 06/08/2019 13:43:44 04/05/20 22 04/04/2022 MAMMO sohan, digit al, bilat eral No observ ation record ed. [email or web address] [facility] [address] [place], [id number], 04/05/2022 10:04:34 Result Notes None recorded. Problems Name Problem SNOMED Code Status Onset Date Resolution Date Notes Provider Name and Address Organization Details Recorded Time Basal cell carcinoma of skin 032743201 Active 2008 Jing Novak NP, S [address] [place] [address], [address], [facility] 8 16:35:23 Basal cell carcinoma of skin 053237320 Active 2008 Jing Novak NP, S [address] [place] [address], [address], [facility] 8 16:35:51 Essential hypertensi on 17945088 Active 2017 Liyat[place]ia Rosario [facility] 8 15:40:24 Hyperchole sterolemia 01541171 Active 2017 [place] Rosario [facility] 8 15:40:36 Ulcerative colitis 11022016 Active 2017 Nye Marlene [facility] 8 15:40:51 Rheumatoid arthritis 43328154 Active 2017 [place] Rosario [facility] 8 15:40:59 Kidney stone 79082288 Active 2017 [place] Rosario [facility] 8 15:41:11 Impaired fasting glycemia 261391486 Active 2017 Jing Novak NP, S [address] [place] [address], [address], [facility] 8 13:01:20 Vitamin D deficiency 91750277 Active 2018 YEVGENIY Foreman [address] [place] [address], [address], [facility] 9 10:22:21 Problem Notes None recorded. Procedures Surgical History Date Name Laterality Status Provider Name and Address Organization Details Recorded Time 03/25/20 13 Colonoscopy completed Jing Novak NP, S [address] [place], [address], [facility] 07/07/2018 16:31:58 Total Hysterectomy completed Jing Novak NP, S [address] [place], [address], [facility] 07/07/2018 16:31:33 Imaging Results None recorded. Procedure Notes None recorded. Medical Equipment None Reported. Allergies Allergen ID Allergen Name Allergen Category Reaction Reaction Severity Criticality Documentation Date Start Date Code Code System Note Provider Name and Address Organization Details Recorded Time 1425 amoxicill in medicatio n Not available Not available Not available 04/15/2018 723 RxNorm Liya Bowenisabel [facility] 8 15:40:15 Medications Name Sig Start [...] in Arterial blood by Pulse oximetry Systolic And Diastolic Provider Name and Address Organization Details Last Updated DateTime 9 156.21 cm 31.2 kg/m2 70415.0 8 g 60 /min 98 % 98 % 128/80 mm[Hg] Kanchan Florez [facility] 9 09:53:07 Date Recorded Systolic And Diastolic Provider Name and Address Organization Details Last Updated DateTime 04/16/2018 128/70 mm[Hg] Jing Novak NP, S [address] [place], [address], [facility] 04/16/2018 10:03:07 Date Recorded Body weight Body mass index (BMI) Body height Heart rate Oxygen saturation Oxygen saturation in Arterial blood by Pulse oximetry Systolic And Diastolic Provider Name and Address Organization Details Last Updated DateTime 8 07304.7 6 g 30.2 kg/m2 156.21 cm 56 /min 96 % 96 % 132/76 mm[Hg] [facility] 8 09:45:36 Date Recorded Body height Body mass index (BMI) Body weight Heart rate Oxygen saturation Oxygen saturation in Arterial blood by Pulse oximetry Systolic And Diastolic Provider Name and Address Organization Details Last Updated DateTime 9 156.21 cm 31.5 kg/m2 67261.5 5 g 60 /min 96 % 96 % 138/72 mm[Hg] Kanchan Florez [facility] 9 10:14:48 Date Recorded Body height Body mass index (BMI) Body weight Heart rate Oxygen saturation Oxygen saturation in Arterial blood by Pulse oximetry Systolic And Diastolic Provider Name and Address Organization Details Last Updated DateTime 8 156.21 cm 30.1 kg/m2 94111.2 5 g 52 /min 96 % 96 % 124/72 mm[Hg] Liya Rosario [facility] 8 10:08:50 Date Recorded Body height Body mass index (BMI) Body weight Heart rate Oxygen saturation Oxygen saturation in Arterial blood by Pulse oximetry Systolic And Diastolic Provider Name and Address Organization Details Last Updated DateTime 8 156.21 cm 30.9 kg/m2 48101.3 3 g 61 /min 96 % 96 % 126/76 mm[Hg] [facility] 8 09:43:47 Social History Question Answer Notes LastModified by Organizat ion Details LastModified Time Tobacco Smoking Status Never Smoker Not Available [facility] 09/27/2020 03:36:24 What Was The Date Of Your Most Recent Tobacco Screening? 03/11/2019 [id number] Information not available 09/27/2020 Sex: Unknown Functional [...] 07/25/20 18 completed Jing Novak NP, S [address] [place] [address], [address], [facility] 11/11/2018 09:58:00 Pneumococcal conjugate PCV 13 12/25/19 18 completed Liya terry [facility] 11/11/2018 09:44:33 pneumococcal polysaccharide PPV23 01/20/20 19 completed YEVGENIY Ellington [address] [place] [address], [address], [facility] 07/22/2019 10:32:40 Influenza, split virus, quadrivalent, preservative 07/30/20 19 completed Kanchan terry [facility] 08/05/2019 08:08:04 Td (adult) 07/26/20 14 completed Jing Novak NP, S [address] [place], [address], [facility] 07/07/2018 16:33:47 Past Encounters Encounter ID Performer Location Encounter Start Date Encounter Closed Date Diagnosis/Indication Diagnosis SNOMED-CT Code Diagnosis ICD10 Code Diagnosis IMO Codes Diagnosis Note [id number] Chidi Crawford [facility] [address] [facility],[place] [address] 04/16/2018 09:37:41 04/16/2018 12:55:31 Essential hypertension 45510865 I10 stable Pre-existi ng type 2 diabetes mellitus 433904159 E11.9 try to check home blood sugars Ulcerative colitis 94086 004 K51.90 trialing off Lialda r/t expense Hypercholesterolemia 136 47855 E78.00 recheck labs prior to next visit Rheumatoid arthritis 698 78042 M06.9 asymptomat ic [id number] Chidi Crawford [facility] [address] [facility],[place] [address] 07/23/2018 09:39:16 07/23/2018 17:12:10 Essential hypertension 04805051 I10 stable Hypercholesterolemia 136 55952 E78.00 follow ldl 121, on simvastati n Impaired f asting glycemia 783195739 R73.01 A1C 6.3 Ulcerative colitis 71677 004 K51.90 trialing off Lialda r/t expense Rheumatoid arthritis 698 [address] M06.[place] [id number] Chidi Crawford [facility] [address] [facility], [place] [address] 11/11/2018 09:33:44 11/14/2018 11:17:40 Impaired fasting glycemia 715218891 R73.01 A1C 6.3 Hypercholesterolemia 136 29535 E78.00 RR > 3.5 Essential hypertension 64840002 I10 stable Ulcerative colitis 20812 004 K51.90 trialing off Lialda r/t expense Rheumatoid arthritis 698 84385 M06.9 asymptomat ic- no meds [id number] Chidi Crawford [facility] [address] [facility],Kenny laly Quiñones [facility] [place] [address] 03/11/2019 09:40:22 03/11/2019 16:41:57 Hypercholesterolemia 07657456 E78.00 to try 30 mg Impaired f asting glycemia 731982748 R73.01 A1C 6.8, discussed Essential hypertension 85101166 I10 stable Ulcerative colitis 03953 004 K51.90 remains off Lialda r/t expense Rheumatoid arthritis 698 93415 M06.9 asymptomat ic- no meds [id number] Chidi Crawford, [facility] [address] [facility],Kenny itnuno [place] [address] 07/22/2019 10:01:31 07/22/2019 10:57:47 Hypercholesterolemia 66247385 E78.00 pt reluctant to go up to 40 mg of simvastati n, will change to atorvastat in 20 mg wants to finish off the simvastati n 30 mg qd Impaired f asting glycemia 891439126 R73.01 stable at 6.8 Essential hypertension 21280823 I10 stable Ulcerative colitis 43123 004 K51.90 in remission Rheumatoid arthritis 698 84671 M06.9 quiet Health Concerns Section Related Observation LastModified by Organization Detai ls LastModified Time None Recorded Concern Status LastModified by Organization Details LastModified Time None Recorded Advance Directives Directive None Recorded Payers Insurance Date Sequence Insurance Name Policy Number Policy Girard Covered Member ID Girard Member ID Guarantor Name 11/06/2024 2 [place] [id number] Susan Payne [id number] Susan Payne 11/06/2024 1 [place] [employer] Susan Payne [id number] Susan Payne Notes Date Note Type Note Provider Name a nd Address Organization Details Recorded Time 04/16/2018 text/html ROS as noted in the HPI Feels well Trying to wean off Lialda, drinking lucia water and taking tumeric, follows with Dr. 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 Feels good Has been careful with diet, rare red meat, limits carbohydrates continues to be off lialda, no recent ulcerative colitis flares Joints feel good Not walking as much 2nd heat, but plans to increase Jing Novak NP, S [address] [place], [address], [facility] 07/23/2018 11:30:57 11/11/2018 text/html Routine appt Feels well, no concerns Maintains self off RA and Crohns medications Walks dogs daily without difficulty Jing Novak NP, S [address] [place] [address], [address], [facility] 11/11/2018 10:23:57 03/11/2019 text/html Routine appt did not change simvastatin to 40 mg, worried about myalgias Has colonoscopy scheduled this summer w/ Dr. Shaffer remains off lialda feels well Jing Novak NP, S [address] [place], [address], [facility] 03/11/2019 11:18:04 07/22/2019 text/html ROS as noted in the HPI cholesterol - simvastatin was increased ifg - [...] headaches, dizziness/lighthea dedness, rashes, or nail changes. Ebonie YEVGENIY Foreman [address] [place], [address], [facility] 07/22/2019 10:36:32 OBGyn Episode No OBEpisode recorded.
[2025-10-08 10:16] LABS: MANUAL DIFF FLAG NO
[2025-10-08 10:39] LABS: Hematocrit 40.1 % (37.0-47.0); Hemoglobin 13.0 g/dl (12.0-16.0); Imm Gran Abs Auto 0.03 X10*3/uL (0.00-0.03); Imm Gran Pct Auto 0.4 % (0.0-0.4); Lymphocytes Absolute Auto 2.2 X10*3/uL (1.2-4.9); Mean Corpuscular HGB Conc 32.4 g/dl (31.0-35.0); Mean Corpuscular Hemoglobin 28.3 pg (27.0-33.0); Mean Corpuscular Volume 87.2 fL (80.0-98.0); NRBC Abs Auto 0.000 X10*3/uL (0.0-0.012); NRBC Pct Auto 0.0 /100WBC (0.0-0.2); Platelet Count 243 X10*3/uL (160-400); Red Blood Count 4.60 X10*6/uL (4.20-5.50); White Blood Count 7.2 X10*3/uL (4.8-10.8)
[2025-10-08 11:00] LABS: Alanine Aminotransferase 10 U/L (0-31); Albumin Level 4.4 g/dL (3.5-5.0); Alkaline Phosphatase 72 U/L (39-117); Anion Gap 13 (12-20); Aspartate Amino Transferase 18 U/L (5-31); Blood Urea Nitrogen 20 mg/dL (9-16); Calcium 9.4 mg/dL (8.4-10.2); Carbon Dioxide 24 mmol/L (22-29); Chloride 108 mmol/L (96-108); Cholesterol 182 mg/dL (<200); Estimated Glomerular Filt Rate > 60; HDL Cholesterol 60 mg/dL (>40); Potassium 3.7 mmol/L (3.3-5.1); Sodium 141 mmol/L (135-145); Total Protein 7.0 g/dL (6.5-8.0); Triglycerides 125 mg/dL (<150)
[2025-10-08 12:32] LABS: Microalbum/Creatinine Ratio Ur 9.7 ug/mg cr (<30)
== END 2025-10-08 08:32 | disposition home or self-care (01) ==
LOC: HO.HMGCLDS 08:31
PROVIDERS: PCP Internal Medicine; Visit Provider Internal Medicine
DX: I10 Essential (primary) hypertension (principal); E78.5 Hyperlipidemia, unspecified; E11.9 Type 2 diabetes mellitus without complications
CPT/HCPCS: 36415; 80053; 80061; 82043; 82570; 83036; 85025

== ENCOUNTER 2025-10-14 12:49 | Outpatient (AMB) | payer MEDICARE, SELFPAY ==
[2025-10-14 13:07] VITALS: BP 112/70; PULSE 62; O2SAT 98; BMI 28.7
--- NOTE | 2025-10-14 13:07 | A.OFFPC_ITS ---
Vital Signs 10/14/25 13:07 Height 5 ft 1 in Weight 152 lb BMI 28.7 BP 112/70 Blood Pressure Location Lt brachial Position Sitting Pulse 62 Pulse Source Pulse Oximeter Pulse Oximetry (%) 98 Intake Visit Reasons: Pre op cataract 10/31/25 and 12/08/25 Intake Note: pre op for cataracts @ [facility] Address: [address] [place] [address], [place] [address] Office: [phone] Allergies amoxicillin (AMOXICILLIN) Allergy (Intermediate, Verified 07/20/25 10:19) RASH Medication List - Last Reconciled 10/14/25 by Catalina Saldivar MD atenolol 25 mg PO DAILY atorvastatin 20 mg PO DAILY blood sugar diagnostic ([employer] Ultra Test strips) test glucose once a day blood-glucose meter ([employer] Ultra2 Meter kit) As directed blood-glucose meter ([employer] Ultra2 Meter) As directed cholecalciferol (vitamin D3) 25 mcg PO DAILY lancets ([employer] Delica Plus Lancet) Test daily lancing device with lancets ([employer] Delica Lancing Device kit) test one a day lisinopril 5 mg PO DAILY metformin ER 1,000 mg (2 x 500 mg) PO DAILY wgsstrde-gzblxyy-wjxk-lutein 1 tab PO DAILY sertraline 50 mg PO DAILY sertraline 25 mg PO DAILY sulfasalazine 500 mg PO BID 90 days Tobacco use date assessed: 07/20/25 Dental Screening Dental Screen Date: 07/20/25 HPI Pre op cataract 10/31/25 and 12/08/25 HPI Details Pt presents for preop for cataract surgery. HTN, hyperlipid, DM 2, are stable on meds. [facility] Medical History Ulcerative colitis Anxiety Multinodular goiter Squamous cell carcinoma of left lower leg History of ulcerative colitis History of kidney stones Basal cell carcinoma Mammogram normal HTN (hypertension) Hyperlipidemia DM type 2 (diabetes mellitus, type 2) Surgical History Hx of hysterectomy Hx of colonoscopy Family History Father Hypertension Heart disease Colon cancer Mother Hypertension Diabetes Heart disease Other Substance use disorder Social History Housing: House Patient Tobacco Use Status: Never used Tobacco e-Cigarette/Vaping Use: Never Used Second Hand Smoke Exposure: Yes Advance Directives Date on File: 09/06/21 service: No Current occupational status: retired Current occupational exposures/hazards: No Cognitive needs: No Hearing needs: No Vision needs: No Questionnaire Thrive Questionnaire Date Thrive assessed: 04/09/25 I am a: Patient What is your living situation today?: I have a steady place to live Within the past 12 months, did the food you bought not last and you didn't have the money to get more?: I choose not to answer this question Within the past 12 months, did you worry whether your food would run out before you got money to buy more?: I choose not to answer this question Do you have trouble paying for medicines?: I choose not to answer this question Do you have trouble getting transportation to medical appointments?: I choose not to answer this question Do you have trouble paying your heating and electricity bill?: I choose not to answer this question Do you have trouble taking care of your child, family member or friend?: I choose not to answer this question Do you have trouble with day-to-day activities such as bathing, preparing meals, shopping, managing finances, etc.?: I choose not to answer this question Are you currently unemployed and looking for a job?: I choose not to answer this question Are you interested in more education?: I choose not to answer this question Please select the resources that you would like help with: None Currently or been in a relationship where the following occur: I choose not to answer THRIVE Score: 0 JORDY-7 AMB Questionnaire JORDY-7 Date JORDY - 7 assessed: 04/16/25 Source: Developed by Drs. Bernard Damon, Debra Gunn, Nicholas Garcia and colleagues, with an educational ivory from [employer]. Review of Systems Const All systems reviewed & are unremarkable except as noted in HPI and below Eyes Reports no additional complaints ENT Reports no additional complaints Card Reports no additional complaints Resp Reports no additional complaints GI Reports no additional complaints Reports no additional complaints Physical exam (Primary Care) Vital Signs: Last Vital Signs Pulse 62 10/14/25 13:07 BP 112/70 10/14/25 13:07 Pulse Ox 98 10/14/25 13:07 BMI result Body Mass Index 28.7 Tobacco/Smoking Status: Tobacco use Status Tobacco use date assessed 07/20/25 10/14/25 13:11 Patient Tobacco Use Status Never used Tobacco 10/14/25 13:11 e-Cigarette/Vaping Use Never Used 10/14/25 13:11 Thrive Assessment: Date of Thrive Assessment Date Thrive assessed 04/09/25 10/14/25 13:11 Currently or been in a relationship where the following occur: I choose not to answer Const General: no acute distress HENMT Head: Yes normal to inspection Neck Neck: Yes no lymphadenopathy and Yes supple Resp Effort & Inspection: normal respiratory effort Auscultation: clear to auscultation bilaterally Cardio Rhythm: regular rhythm Heart sounds: S1 normal heart sound present and S2 normal heart sound present GI Inspection: Yes normal to inspection Palpation (GI): Soft to palpation Coding Level of Care Code Est Pt Level 4 (17049) Diagnoses Cataract H26.9 Anxiety F41.9 DM type 2 (diabetes mellitus, type 2) E11.9 HTN (hypertension) I10 Assessment & Plan Assessment & Plan (1) Cataract: Code(s): H26.9 - Unspecified cataract Category: Medical Plan: Patient is medically cleared for cataract surgery (2) Anxiety: Code(s): F41.9 - Anxiety disorder, unspecified Category: Medical Plan: Increase Zoloft to 50 mg (3) DM type 2 (diabetes mellitus, type 2): Comment: diarrhea from Metformin 1000 mg , cannot afford Jardiance Code(s): E11.9 - Type 2 diabetes mellitus without complications Category: Medical Plan: A1c is 6.7, ADA diet regular exercise discussed with the patient continue current medications follow-up in 5 months with a fasting labs before (4) HTN (hypertension): Code(s): I10 - Essential (primary) hypertension Category: Medical Plan: Continue current medications Orders: Orders Comprehensive [place]. Panel Fast 5 Months E11.9 - Type 2 diabetes mellitus without complications, E78.5 - Hyperlipidemia, unspecified, I10 - Essential (primary) hypertension Hemoglobin A1c 5 Months E11.9 - Type 2 diabetes mellitus without complications, E78.5 - Hyperlipidemia, unspecified, I10 - Essential (primary) hypertension Lipid Panel 5 Months E11.9 - Type 2 diabetes mellitus without complications, E78.5 - Hyperlipidemia, unspecified, I10 - Essential (primary) hypertension Microalbumin, Random (w Creat) 5 Months E11.9 - Type 2 diabetes mellitus without complications, E78.5 - Hyperlipidemia, unspecified, I10 - Essential (primary) hypertension UA w Microscopic 5 Months E11.9 - Type 2 diabetes mellitus without complications, E78.5 - Hyperlipidemia, unspecified, I10 - Essential (primary) hypertension Complete Blood Count Auto Diff 5 Months E11.9 - Type 2 diabetes mellitus without complications, E78.5 - Hyperlipidemia, unspecified, I10 - Essential (primary) hypertension Medications: New sertraline 50 mg PO DAILY 90 tabs 0RF
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
== END 2025-10-14 13:55 | disposition home or self-care (01) ==
LOC: HO.HMCC 12:50
PROVIDERS: PCP Internal Medicine; Visit Provider Internal Medicine
DX: H26.9 Unspecified cataract (principal); F41.9 Anxiety disorder, unspecified; E11.9 Type 2 diabetes mellitus without complications; I10 Essential (primary) hypertension

== ENCOUNTER → 2025-10-14 12:49 | Outpatient (BNVA) | payer MEDICARE, SELFPAY | PROVIDERS: PCP Internal Medicine; Visit Provider Internal Medicine | DX: Z01.818 Encounter for other preprocedural examination (principal); H26.9 Unspecified cataract; F41.9 Anxiety disorder, unspecified; E11.9 Type 2 diabetes mellitus without complications; I10 Essential (primary) hypertension | CPT/HCPCS: 99212 ==